=== PATIENT | male | born 1930 | race Caucasian/White ===

== ENCOUNTER 2016-10-19 11:52 | Inpatient (IN) | payer OTHER ==
[~2016-10-19] VITALS: Ht 162.6 cm; Wt 87.1 kg
[~2016-10-19 11:52] MED LIST: AGGRENOX CAPSUL1 CAP PO; ASPIRIN81 M4 PO; CLOPIDOGREL75 MG PO; COSOPT OCUMETER10 ML OS; DORZOLAMIDE HYD10 ML OPH; FLEXERIL 5MG TAB5 MG PO; HUMULIN N100 U/ML SC; LANTUS SOL100 UNIT/1 SC; LANTUS SOLOS100 U/ML SC; LEVEMIR 10100 UNITS/ SC; LISINOPRIL10 M1 PO; LOPID600 MG PO; MACROBID100 MG PO; NOVOLOG100 U/ML SC; PLAVIX 75MG TAB75 MG PO; ROZEREM8 MG PO; TRANDATE-NORMO200 MG PO; TRANDATE100 MG PO; XALATAN 0.50 GTT/1 B OPH; ZESTORETIC 12.51 TA1 PO
--- NOTE | 2016-10-19 12:12 | NUR ---
PT TO ROOM12 BIBA FROM HOME FOR AMS. 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 PT ARRIVED AAOx3, NO NEURO DEFICIT NOTED, PT DENIES ANY SYMPTOMS, SPEACH CLEAR, FALLOWING COMMANDS, ANSWERS QUESTIONS APPROPRIATE. 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 HX OF CVA,TIA,HTN,HIGH CHOL, DIABETES,AORTIC STENOSIS,KIDNEY STONES. MD JONN AT BEDSIDE FOR PT EVAL.
--- NOTE | 2016-10-19 12:19 | NUR ---
BLOOD DRAWN AND SENT TO LAB[facility]. IV EST RH G20.
[2016-10-19] MEDS ORDERED: LABETALOL HCL300 M1 PO (12:28)
[2016-10-19 12:34] LABS: ABSOLUTE BASOPHIL COUNT 0 /CUMM (0.0-0.2); ABSOLUTE EOSINOPHIL COUNT 0.3 /CUMM (0.0-0.7); ABSOLUTE GRANULOCYTE CT 4.3 /CUMM (1.4-6.5); ABSOLUTE LYMPH COUNT 2.4 /CUMM (1.2-3.4); ABSOLUTE MONOCYTE COUNT 0.5 /CUMM (0.10-0.60); BASOPHIL % 0.6 % (0.0-2.0); EOSINOPHIL % 4.3 % (0-5); GRANULOCYTE % 56.5 % (42.2-75.2); HEMATOCRIT 34.3 % (42-52); MEAN CORPUSCULAR HGB 32.7 PG (27.0-31.0); MEAN CORPUSCULAR VOLUME 95.9 FL (80.0-94.0); MEAN PLATELET VOLUME 8.1 FL (7.4-10.4); PLATELET COUNT 211 /CUMM (130-400); RBC DISTRIBUTION WIDTH 14.3 % (11.5-14.5); RED BLOOD CELL CT 3.57 /CUMM (4.70-6.10); WHITE BLOOD CELL COUNT 7.7 /CUMM (4.8-10.8)
--- NOTE | 2016-10-19 12:55 | RADIOLOGY REPORT ---
EXAMINATION: XR PORTABLE CHEST CLINICAL INFORMATION: Acute mental status changes. Presumptive diagnosis of pneumonia. COMPARISON: Chest x-ray dated 05/10/2016 and 08/17/2015. TECHNIQUE: Portable AP semierect view of the chest was obtained. FINDINGS: The cardiac mediastinal silhouette is borderline enlarged, unchanged. Slight elevation of the right hemidiaphragm is noted, unchanged. Lungs bilaterally remain clear. No focal consolidation, effusion or axis is seen. Bony structures are unremarkable. IMPRESSION: Unchanged appearance of the chest with no acute cardiopulmonary process seen.
--- NOTE | 2016-10-19 13:00 | NUR ---
URINE TRIO SENT TO LAB. PT TO CAT SCAN BY FRED.
--- NOTE | 2016-10-19 13:12 | NUR ---
PT RETURNED FROM CAT SCAN, AWAITING RESULTS, VSS, OFFERING NO COMPLAINTS. FAMILY AT BEDSIDE.
--- NOTE | 2016-10-19 14:01 | CT SCAN REPORT ---
EXAMINATION: CT HEAD WITHOUT CONTRAST CLINICAL INFORMATION: Acute mental status changes. CVA. COMPARISON: CT scan of the head dated 05/10/2016 and 02/25/2016. MRI/MRA of the head dated 03/27/2016 and 02/27/2016. TECHNIQUE: Contiguous axial imaging was performed from the skull base to vertex without intravenous administration of contrast. DLP: 529.16 mGy-cm FINDINGS: There is no evidence of acute intracranial hemorrhage or territorial infarction. No abnormal mass effect or midline shift is seen. Hogan to white matter differentiation is well preserved. No extra-axial fluid collections are identified. The ventricles and sulci are again found to be enlarged, consistent with involutional changes. There is extensive periventricular deep white matter low-attenuation seen, consistent with ischemic small vessel disease. Superimposed small lacunar infarction is present in the left frontoparietal region. Atherosclerotic calcifications of the vertebral arteries and the carotid siphons are noted. The osseous structures and soft tissues are normal. The mastoid air cells and visualized portions of the paranasal sinuses are well aerated. IMPRESSION: 1. No acute intracranial pathology. 2. Involutional changes are again seen with enlargement of the ventricles and sulci. 3. 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
--- NOTE | 2016-10-19 14:38 | ED AMS/SEIZURE/WEAK/DIZZY ---
History of Present Illness General Chief Complaint: Altered Mental Status Stated Complaint: BIBA AMS Source: patient, family, old records, EMS Exam Limitations: no limitations Vital Signs & Intake/Output Vital Signs & Intake/Output Vital Signs Date Time Temp Pulse Resp B/P Pulse O2 O2 Flow FiO2 Ox Delivery Rate 10/21 1646 97.6 61 17 116/68 91 Room Air 10/21 0829 70 130/70 10/21 0805 97.4 70 20 130/70 94 Room Air 10/21 0010 98.4 76 20 120/67 93 10/20 2105 74 142/66 ED Intake and Output 10/21 0000 10/20 1200 Intake Total 660 220 Output Total 300 100 Balance 360 120 Intake, IV 10 Intake, Oral 650 220 Number 1 Bowel Movements Output, Urine 300 100 Patient 150 lb Weight Allergies Coded Allergies: Iodinated Contrast Media - Oral and (IODINATED CONTRAST MEDIA - IV DYE) (SOB, HIVES 05/11/16) Reconcile Medications Atorvastatin Calcium 80 MG TABLET 1 TAB PO 1700 TIA Clopidogrel Bisulfate (Plavix) 75 MG TABLET 1 MG PO DAILY TIA Insulin Glargine,Hum.rec.anlog (Lantus Solostar) 100 UNIT/ML (3 ML) INSULN.PEN 40 UNIT SC QPM DIABETES (Reported) Labetalol HCl 300 MG TABLET 1 TAB PO BID BP (Reported) Lisinopril 10 MG TABLET 1 TAB PO DAILY HIGH BLOOD PRESSURE Triage Note: PT TO ROOM12 BIBA FROM HOME FOR AMS. 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 PT ARRIVED AAOx3, NO NEURO DEFICIT NOTED, PT DENIES ANY SYMPTOMS, SPEACH CLEAR, FALLOWING COMMANDS, ANSWERS QUESTIONS APPROPRIATE. 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 HX OF CVA,TIA,HTN,HIGH CHOL, DIABETES,AORTIC STENOSIS,KIDNEY STONES. MD JONN AT BEDSIDE FOR PT EVAL. Triage Nurses Notes Reviewed? yes HPI: Patient presents for evaluation of an inability to speak that began about 60 minutes prior to arrival. Patient states that he just "couldn't talk". The family also noted that he was a bit confused this morning and was unable to answer questions. One point the patient seemed indicate he had a sore throat or perhaps anterior neck pain although he currently denies this. There is been no associated fever, cold symptoms, dysuria, chest pain, dyspnea, palpitations or headache. He did feel dizzy at the onset of symptoms. He was seen by his primary care physician at the [facility] for a TIA about 2 weeks ago. Since then he has had an MRI scan, an echocardiogram and a 2 day Holter monitor. An EEG was pending. Past History Travel History Traveled to [place] past 21 day No Medical History Any Pertinent Medical History? 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 No Review of Systems Review of Systems Constitutional: Reports: no symptoms. EENTM: Reports: no symptoms. Respiratory: Reports: no symptoms. Cardiovascular: Reports: no symptoms. GI: Reports: no symptoms. Genitourinary: Reports: no symptoms. Musculoskeletal: Reports: no symptoms. Skin: Reports: no symptoms. Neurological/Psychological: Reports: see HPI. Hematologic/Endocrine: Reports: no symptoms. Immunologic/Allergic: Reports: no symptoms. All Other Systems: Reviewed and Negative Physical Exam Physical Exam General Appearance: see below Comments: Gen.: Well-nourished, well-developed, no acute respiratory distress. Head: Normocephalic, atraumatic. Eyes: Normal inspection bilaterally Ears: Normal inspection bilaterally Nose: Normal inspection Throat/mouth : Moist mucosa Neck: Supple, full range of motion, no goiter Heart: Regular rate and rhythm, no murmurs rubs or gallops Lungs: Clear to auscultation bilaterally with normal air entry Chest: Nontender Back: Normal range of motion Abdomen: Soft, nontender, nondistended, normal bowel sounds Extremities: Normal range of motion grossly, equal radial pulses, no cyanosis clubbing or edema Neurologic: Cranial nerves 2 through 12 intact, speech is clear, no apparent aphasia Skin: warm and dry Psychiatric: Calm, cooperative, no apparent delusions or hallucinations Core Measures ACS in differential dx? No CVA/TIA Diagnosis: Yes Severe Sepsis Present: No Septic Shock Present: No Bedside Dysphagia Screen Bedside Swallow Eval Done: Yes Result of Evaluation: Pass Progress Differential Diagnosis: anemia, CVA/stroke, dehydration, electrolyte imbalance, hypoglycemia, hypoxia, intracranial Hem., intracranial mass/tumor, pneumonia Plan of Care: Orders Procedure Date/time Status MRI-HEAD W/O ARNEL 10/22 07 Active MRA-NECK W/O ARNEL 10/22 06 Active MRA-HEAD W/O-W ARNEL 10/22 06 Active TROPONIN LEVEL 10/21 1715 Complete BASIC ELECTROLYTES PLUS BUN&CR 10/21 1715 Complete EKG 10/21 1715 Active CBC WITHOUT DIFFERENTIAL 10/21 1511 Complete BASIC ELECTROLYTES PLUS BUN&CR 10/21 1511 Complete PROLACTIN 10/21 1510 Complete Admit to inpatient 10/21 UNK Active Telemetry/Cleaning Maid 10/21 UNK Active EKG 10/21 UNK Active Current Medications Sig/Maikol Start time Last Medication Dose Stop Time Status Admin Ibuprofen 600 MG Q6P PRN 10/19 2044 AC (Motrin) Oxycodone/ 2 TAB Q6P PRN 10/19 204 AC Acetaminophen (Percocet) Laboratory Tests 10/21/16 1756: Anion Gap 11, Estimated GFR 57 L, BUN/Creatinine Ratio 25.0, Troponin I < 0.01 10/21/16 1530: Prolactin 13.2 10/21/16 1530: Anion Gap 12, Estimated GFR 52 L, BUN/Creatinine Ratio 23.8, CBC w Diff NO MAN DIFF REQ, RBC 3.41 L, MCV 96.4 H, MCH 32.9 H, RDW 14.2, MPV 8.2, Gran % 39.1 L, Lymphocytes % 42.8, Monocytes % 11.9 H, Eosinophils % 5.7 H, Basophils % 0.5, Absolute Granulocytes 2.1, Absolute Lymphocytes 2.3, Absolute Monocytes 0.6 , Absolute Eosinophils 0.3, Absolute Basophils 0, PUBS MCHC 34.2 Diagnostic Imaging: Discussed w/RAD: Radiology Read, CT Scan. Radiology Impression: PATIENT: GONZÁLEZ HASSAN PRESENT AGE: 86 PATIENT ACCOUNT NO: [id number] : 30 LOCATION: [facility] ORDERING PHYSICIAN: KAREN LUSNFORD MD SERVICE DATE: 10/19/16 EXAM TYPE: CAT - CT HEAD WO IV CONTRAST EXAMINATION: CT HEAD WITHOUT CONTRAST CLINICAL INFORMATION: Acute mental status changes. CVA. COMPARISON: CT scan of the head dated 2015 and 02/25/2016. MRI/MRA of the head dated 03/27/2016 and 02/27/2016. TECHNIQUE : Contiguous axial imaging was performed from the skull base to vertex without intravenous administration of contrast. DLP: 529.16 mGy-cm FINDINGS: There is no evidence of acute intracranial hemorrhage or territorial infarction. No abnormal mass effect or midline shift is seen. Hogan to white matter differentiation is well preserved. No extra-axial fluid collections are identified. The ventricles and sulci are again found to be enlarged, consistent with involutional changes. There is extensive periventricular deep white matter low-attenuation seen, consistent with ischemic small vessel disease. Superimposed small lacunar infarction is present in the left frontoparietal region. Atherosclerotic calcifications of the vertebral arteries and the carotid siphons are noted. The osseous structures and soft tissues are normal. The mastoid air cells and visualized portions of the paranasal sinuses are well aerated. IMPRESSION: 1. No acute intracranial pathology. 2. Involutional changes are again seen with enlargement of the ventricles and sulci. 3. 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 DICTATED BY: JOHN AUGUSTINE MD DATE/TIME DICTATED:10/19/161347 DIALYSIS RN:KENNY DATE/TIME TRANSCRIBED:10/19/161347 CONFIDENTIAL, DO NOT COPY WITHOUT APPROPRIATE AUTHORIZATION. <Electronically signed in Other Vendor System> SIGNED BY: JOHN AUGUSTINE MD 10/19/16 1401 CXR Impression: PATIENT: GONZÁLEZ HASSAN PRESENT AGE: 86 PATIENT ACCOUNT NO: [id number] : 30 LOCATION: [facility] ORDERING PHYSICIAN: KAREN LUNSFORD MD SERVICE DATE: 10/19/16 EXAM TYPE: RAD - XRY-PORTABLE CHEST XRAY EXAMINATION: XR PORTABLE CHEST CLINICAL INFORMATION: Acute mental status changes. Presumptive diagnosis of pneumonia. COMPARISON: Chest x-ray dated 05/10/2016 and 08/17/2015. TECHNIQUE: Portable AP semierect view of the chest was obtained. FINDINGS: The cardiac mediastinal silhouette is borderline enlarged, unchanged. Slight elevation of the right hemidiaphragm is noted, unchanged. Lungs bilaterally remain clear. No focal consolidation, effusion or axis is seen. Bony structures are unremarkable. IMPRESSION: Unchanged appearance of the chest with no acute cardiopulmonary process seen. DICTATED BY: JOHN AUGUSTINE MD DATE/TIME DICTATED:10/19/161248 DIALYSIS RN:KENNY DATE/ TIME TRANSCRIBED:10/19/161248 CONFIDENTIAL, DO NOT COPY WITHOUT APPROPRIATE AUTHORIZATION. <Electronically signed in Other Vendor System> SIGNED BY: JOHN AUGUSTINE MD 10/19/16 1250 Initial ED EKG: NSR, no ST T wave changes Rhythm Strip: normal sinus rhythm Comments: 10/19/2016 3:32:15 PM patient and family updated on test results. I'm attempting to contact his primary care physician given the recent evaluation. I would like to coordinate care with his primary care physician regarding the patient's next phase of testing and treatment. Family and the patient have commented that he has returned to normal functioning (he is complaining of blurred vision in the left eye but this has been present since his TIA 2 weeks ago). 10/19/2016 4:10:51 PM attempts to contact the patient's primary care physician or covering M.D. unsuccessful. I have just spoken with the emergency physician at the [facility] who will contact the neurology service regarding a disposition for this patient. 16:26 patient's case discussed with neurology fellow dr cruz who agrees that this patient should be hospitalized. Patient's case discussed with the emergency physician at the [facility] who feels the patient should be hospitalized at [place] despite the fact that this patient's care has been primarily via the [facility]. Departure Departure Disposition: STILL A PATIENT Condition: Stable Clinical Impression Primary Impression: TIA (transient ischemic attack) Qualifiers: Transient cerebral ischemia type: unspecified Qualified Code: G45.9 - Transient cerebral ischemic attack, unspecified Referrals: ARMANDO ROLON,ARLET [place] (PCP/Family) Departure Forms: Customer Survey General Discharge Information Prescriptions: Current Visit Scripts Clopidogrel Bisulfate (Plavix) 1 MG PO DAILY #30 TAB Atorvastatin Calcium 1 TAB PO 1700 #30 TAB Lisinopril 1 TAB PO DAILY 30 Days Ref 2
--- NOTE | 2016-10-19 14:44 | NUR ---
FOOD TRAY ORDERED FOR PT .
--- NOTE | 2016-10-19 15:42 | NUR ---
FOOD PROVIDED TO PT.
--- NOTE | 2016-10-19 17:54 | NUR ---
PT RESTING COMFORTABLY ON STRETCHER, VSS, OFFERING NO COMPLAINTS. AWAITING ADMISSION.
--- NOTE | 2016-10-19 19:45 | History & Physical ---
WARD ROLON,EDITH 10/19/161943: General Information and HPI MD Statement: I have seen and personally examined GOZNÁLEZ HASSAN and documented this H&P. The patient is a 86 year old M who presented with a patient stated chief complaint of [garbled speech]. Source of Information: patient, family, old records Exam Limitations: no limitations History of Present Illness: This is an 86 yo male with PMH of CVA, seizure, TIA, , htn, hyperlipidemia, nephrolithiasis, arthritis, who presentes with CC of 10-15 minutes of "inability to talk." Per family at bedside pt was awake, and alert but was unable to formulate any words to answer his . Pt remembers the episode and denies any confusion, dizziness, weakness, LOC, headache, or any other deficits. Of note, he had a similar episode of garbled speech and l. sided facial numbness with droop two weeks ago. [facility]. Per pt he had an MRI two weeks ago, in addition, he had an echocardiogram and a two day holter monitor earlier this week. He has an EEG appointment on 10/20/2016. He is unaware of any results of his tests. Pt has hx significant for previous TIA. He had 2 TIA in was then placed on Aggrenox without recurrence until during which he had an intracerebral hemorrhage that presented with garbled speech, he was taken off Aggrenox and he had interval resolution of symptoms until during which he presented with facial weakess and then in when he presented with l. sided weakness and dysarthria. Currently denies any CP, LOC, diarrhea, N/V, headache, dizziness, change in vision, dysarthria, weakness or confusion. He has hx of one life time seizure in 2014. Denies any tonic clonic activity since that episode. Allergies/Medications Allergies: Coded Allergies: Iodinated Contrast Media - Oral and (IODINATED CONTRAST MEDIA - IV DYE) (SOB, HIVES 05/11/16) Home Med list Aspirin (Ecotrin*) 81 MG TABLET. 2 TAB PO DAILY HEART/BLOOD (Reported) Insulin Glargine,Hum.rec.anlog (Lantus Solostar) 100 UNIT/ML (3 ML) INSULN.PEN 40 UNIT SC QPM DIABETES (Reported) Labetalol HCl 300 MG TABLET 1 TAB PO BID BP (Reported) Lisinopril 10 MG TABLET 10 MG PO DAILY HIGH BLOOD PRESSURE Pravastatin Sodium 40 MG TABLET 1 TAB PO QPM CHOLESTEROL (Reported) Compliance With Home Meds: UNKNOWN Past History Travel History Traveled to [place] past 21 day No Medical History Neurological: CVA, seizure, TIA EENT: glaucoma Cardiovascular: aortic stenosis, hypertension, hyperlipidemia, AORTIC STENOSIS Respiratory: NONE Gastrointestinal: HERNIA Hepatic: NONE Renal: KIDNEY STONES Musculoskeletal: ARTHRITIS IN KNEES Psychiatric: NONE Endocrine: diabetes Blood Disorders: NONE Cancer(s): NONE ORACLE E BUSINESS DEVELOPER/Reproductive: NONE History of MRSA: No History of VRE: No History of CDIFF: No Surgical History Surgical History: hernia repair Past Family/Social History Family History Relations & Conditions if any FATHER FH: cancer FH: heart disease Psychosocial History Who Do You Live With? spouse Services at Home: None Primary Language: Guamanian Illicit Drug Use: denies illicit drug use Living Will? yes Power of Senior Health Physics Technician/HCP? yes Name of POA/HCP: Halley Hassan Functional Ability ADLs Independent: dressing, eating, toileting, bathing. Ambulation: cane IADLs Independent: shopping, housework, finances, food prep, telephone, transportation , medication admin. Review of Systems Review of Systems Constitutional: Reports: weakness. Denies: chills, diaphoresis, fever, malaise, unexplained weight loss. EENTM: Denies: blurred vision, double vision, visual changes. Cardiovascular: Denies: chest pain, palpitations, syncope. Respiratory: Denies: cough, short of breath, sputum production, wheezing. GI: Denies: abdominal pain, bloating, constipation, diarrhea, vomiting. Genitourinary: Reports: no symptoms. Musculoskeletal: Reports: joint pain. Skin: Reports: no symptoms. Neurological/Psychological: Reports: weakness. Denies: ataxia, confusion, headache, numbness, petit mal seizures, tonic-clonic seizures, unable to move lower ext, unable to move upper ext. Hematologic/Endocrine: Reports: no symptoms. Exam & Diagnostic Data Last 24 Hrs of Vital Signs/I&O Vital Signs Date Time Temp Pulse Resp B/P Pulse O2 O2 Flow FiO2 Ox Delivery Rate 10/19 1957 96.5 71 18 194/85 98 Room Air 02/19 1749 96.2 66 18 165/70 98 Room Air 10/19 1502 58 18 146/67 94 Room Air 10/19 1310 96.0 66 16 168/75 97 Room Air 10/19 1214 Room Air 10/19 1156 96.5 65 18 184/86 99 Room Air Intake & Output 10/19 1600 10/19 0800 10/19 0000 Intake Total Output Total 50 Balance -50 Output, Urine 50 Patient 72.575 kg Weight Physical Exam General Appearance Alert, Oriented X3, Cooperative, No Acute Distress Skin No Rashes, No Breakdown, No Significant Lesion HEENT Atraumatic, PERRLA, EOMI, Mucous Membr. moist/pink, cranial nerves intact. No eivdence of facial droop or asymmetry Neck Supple, no carotid bruits auscultated Cardiovascular Regular Rate, Normal S1, Normal S2, 3/6 systolic creshendo- decreshendo at RUSB Lungs Clear to Auscultation, Normal Air Movement Abdomen Soft, obese Neurological Normal Speech, Strength at 5/5 X4 Ext, Normal Tone, Sensation Intact, Cranial Nerves 3-12 NL, Reflexes 2+, no babinski Extremities No Clubbing, Normal Pulses, No Tenderness/Swelling Last 24 Hrs of Labs/[place]: Laboratory Tests 10/19/16 1256: Urine Opiates Screen < 100.00, Methadone Screen < 40, Barbiturate Screen < 60, Ur Phencyclidine Scrn < 6.00, Amphetamines Screen 146, U Benzodiazepines Scrn < 85, Urine Cocaine Screen < 50, Urine Cannabis Screen < 5.00, Urine Color YEL, Urine Clarity CLEAR, Urine pH 6.0, Ur Specific [place] 1.025, Urine Protein 100 H, Urine Ketones NEG, Urine Nitrite NEG, Urine Bilirubin NEG, Urine Urobilinogen 0.2, Ur Leukocyte Esterase NEG, Ur Microscopic SEDIMENT EXAMINED, Urine RBC RARE , Ur Epithelial Cells FEW, Urine Hemoglobin TRACE-INTACT H, Urine Glucose NEG 10/19/16 1216: Anion Gap 14, Estimated GFR > 60, BUN/Creatinine Ratio 27.8 H, Glucose 74, Calcium 9.8, Total Bilirubin 0.7, AST 22, ALT 27, Alkaline Phosphatase 76, Troponin I < 0.01, Total Protein 7.5, Albumin 4.4, Globulin 3.1, Albumin/ Globulin Ratio 1.4, TSH 2.220, Thyroxine (T4) 8.4, Thyroxine Binding Indx 32.7, CBC w Diff NO MAN DIFF REQ, RBC 3.57 L, MCV 95.9 H, MCH 32.7 H, RDW 14.3, MPV 8.1, Gran % 56.5, Lymphocytes % 31.6, Monocytes % 7.0, Eosinophils % 4.3, Basophils % 0.6, Absolute Granulocytes 4.3, Absolute Lymphocytes 2.4, Absolute Monocytes 0.5, Absolute Eosinophils 0.3, Absolute Basophils 0, PUBS MCHC 34.0, Serum Alcohol < 10.0 Microbiology 10/19 1256 URINE ROUT: Urine Culture - RECD Assessment/Plan Assessment: This is an 86 yo male with PMH significant for HTN, TIA, Intracerebral hemorrhage on Aggrenox, history of one life time seizure, hyperlipidemia, nephrolithiasis and OA who presents with CC of dyarthria and weakness. On admission pt had no deficits noted and was back at his baseline. Given that his ABCD2 score places him at moderate risk category with almost 10% risk of stroke within 90 days pt will be admitted to telemetry unit for observation and work up. PLAN 1. Recurrent TIA: Pt has hx of recurrent TIA almost every 6-[address] shows evidence of extensive ischemic small vessel disease, involutional changes with enlargement of ventricles but no acute intracranial pathology. His last episode of TIA was today with previous one two weeks ago. He is currently only on ASA as Aggrenox was stopped 2/2 Intracranial hemorrhage in 2014. He states that [facility] and got [facility], Echo, and two day holter work up. EEG scheduled on 10/21/2016. Results of tests still pending. At this time pt has no noted deficits and per family is back to his baseline and passed swallow eval at bedside. He was given one dose of Aggrenox in ED. * Carotid dopplers * Neuro consult * [facility] * Start Plavix 75mg po daily starting tomorrow 2. Seizure hx: Pt has one lifetime hx of seizure in 2014 during episode of ICH. No seizure activity noted since then. He is pending EEG early next week. * seizure precautions 3. HTN/Hyperlipidemia: Pt had BP 194/85 during admission examination. He was given 5mg Labetalol. Pt hs seen Dr. Jay previously. * EKG * 1st troponin -ve; repeat troponin * resume home lisinopril 10mg po daily * resume labetalol 300mg po BID * resume lipitor 80mg po daily * Cardiology consult in AM 4. DM: Chronic * RISS * Diabetic diet * FS FULL CODE DIABETIC DIET CHEMICAL DVT PPX. As Ranked By This Provider Problem List: 1. History of CVA (cerebrovascular accident) 2. History of TIA (transient ischemic attack) 3. History of recurrent TIAs 4. Hypertensive urgency Core Measures/Miscellaneous Acute Coronary Syndrome ACS Diagnosis: No Cerebrovascular Accident CVA/TIA Diagnosis: Yes NIH Stroke Scale: Total 0 Congestive Heart Failure CHF Diagnosis: No Venous Thromboembolism VTE Risk Factors: Acute medical illness, Age > 40 VTE Prophylaxis Ordered Inpt: Pharm- Lovenox No Mech VTE prophylaxis d/t: No contraindications No VTE Pharm Prophylaxis d/t: No contraindications VTE Diagnosis: No VTE Type: NONE VTE Confirmed by (Test): NONE Severe Sepsis Severe Sepsis Present: No Septic Shock Septic Shock Present: No Miscellaneous Documentation Attending Case Discussed With: JOSIAH DUVALL MD Primary Care Physician: ARLET ROBERTS MD Patient sees these Specialists UNKNOWN Level of Patient Care: Telemetry Consults Needed: Consulting Specialty: Neurology LEFTY DUVALL MD 10/19/162028: Attending Review Statement Attending Statement Attending MD Statement: examined this patient, discuss w/resident/PA/REHABILITATION PROGRAM MANAGER, agreed w/resident/PA/REHABILITATION PROGRAM MANAGER, discussed with family Attending Assessment/Plan: 86 yo M with h/o T1DM, HTN, CVA, seizure (one time, no recurrence), recurrent TIA (Jul 2014, January 2015), hemorrhagic infarct (May 2015) while on aggrenox, after which he was kept off antiplatelet therapy with resultant TIA's in Jul 2015 and January 2016 at which point he was started on daily aspirin, is here with symptoms suggestive of a TIA. This afternoon, he had a 10 min episode of aphasia preceded by a short spell of dizziness. Since being in the ER, he is back to his baseline and able to converse normally. Denies headache, dyspnea, diaphoresis, nausea, slurring of speech or paresis. reports, he had a TIA (left sided facial droop with numbness, with blurring of left eye) 2 weeks back for which he was evaluated [facility] with [facility], Echo and Holter monitor, results of which are not known. Patient states, his left eye vision has been blurred for past 2 weeks , but he feels vision is clear today. Patient is scheduled for an EEG on Thursday (10/21) at the [facility]. Vitals stable except for hypertension SBP 170-180's. Exam: AAO, speech clear, passed bedside swallow test, cranial nerves intact, no facial droop, sensation intact, power 5/5 all extremities, plantars downgoing, reflexes 2+, cerebellar signs neg, did not assess gait. Chest b/l clear, Heart S1S2 regular, systolic murmur+. Labs: macrocytosis, BUN 25, trop neg, TSH normal. UA clear, Utox neg. Alcohol < 10. CXR: neg. Head CT: no acute pathology, involutional changes enlargement of ventricles and sulci, ischemic small vessel disease. MRI (February 2016) in follow up 3 weeks post discharge: inferior left parietal lobe wedge shaped focus evolving chronic hemosiderin deposition, no mass effect. EKG: SR, no acute changes. 1. Recurrent TIA, symptoms resolved ?aspirin failure. 23 Tele Obs, neurochecks, rule out ACS, obtain carotid dopplers. Please obtain echo, MRI and holter results from the [facility]. Consult cardio and neuro. Lower BP by 15% everyday, resume all home meds. PRN labetalol. Patient has been on aspirin 162 mg daily, previously had hemorrhagic infarct while on aggrenox. Will switch to plavix. Check lipid panel, A1c. Continue high dose statin. PT/speech-swallow therapy. 2. Previous seizure history. No recent seizure like activity per family. Patient is scheduled for EEG on Thursday (10/21). Please discuss with Neuro for further recs. DVT ppx Hep SC. Full code. GIOVANNI SARABIA MD 10/19/162058: Resident Review Statement Resident Statement: examined this patient, discussed with nurse intern Other Findings: This is an 86-year-old gentleman who presented to the emergency room today after being a physical for 10-15 minutes as evidenced by family. He has a past history of multiple TIAs requiring admission at [facility] in May 2015 at time of which she was found to have an intraparenchymal bleed secondary to Aggrenox, TIA-like symptoms in July 2015, and then again in January 2016. Patient states that this episode started about 2 weeks ago when he developed left mild facial droop and tingling and numbness on the left side of his face which she had evaluated by his primary care doctor at the [facility]. The tingling and facial droop did recover and last week he received an MRI, echocardiogram, Holter monitor results for all are still pending. He was said to have an EEG on Thursday at the [facility]. He states that this afternoon he was sitting on his couch when his noticed that it was difficult for him to answer her. He did not express any words for about 10-15 minutes and he symptoms past transiently and he slowly regained control of speech. He had no other symptoms during this time, per he was coherent during this episode. Patient himself remembers this episode and denies any dizziness, chest pain, syncope or postictal symptoms. In addition he has a history of hyperlipidemia, aortic stenosis, nephrolithiasis, diabetes mellitus. He states that after his symptoms resolved his called 911. They initially wanted to go to the [facility] however weren't able to do so. In addition she denies any headaches, nausea, vomiting, diarrhea, fevers, chills , chest pain, shortness of breath, facial droop, motor or sensory deficits. Physical exam- Vital signs are stable Abdominal exam is benign Lung exam is clear to auscultation bilaterally Cardiac exam reveals a 3 out of 6 right upper sternal border systolic ejection murmur Neuro exam-5 out of 5 power in all 4 extremities, sensation intact in all extremities, 1+ reflexes in all 4 extremities, negative Babinski bilaterally, cranial nerves II through XII are intact, no facial droop CAT scan of the head and chest x-ray are unremarkable for any new acute findings EKG- rate 66, VA 160, QRS 82, QTC 428, sinus rhythm, LVH, no change since previous tracing Assessment- 1. Likely TIA 2. History of previous TIAs 3. History of intraparenchymal hemorrhage on Aggrenox previously 4. Hypertension 5. Hyperlipidemia 6. Diabetes mellitus Plan- Telemetry admit She was given Aggrenox in the ER however given previous history of intraparenchymal hemorrhage, will do Plavix while in the hospital, statin Q1 neurochecks Check 1 more set of troponin now and lipids in the morning Goal blood pressures 160-170 systolic, decreased pressure by 15-20% every day He passed bedside swallow eval, and resume regular diet PT and OT consult Accu-Cheks, diabetic diet, insulin sliding scale Neurology and cardiology consult Will get carotid ultrasound Get records of recent echo, MRI, Holter from [facility] DVT prophylaxis with subcutaneous heparin Pain pathway Full code
--- NOTE | 2016-10-19 20:03 | NUR ---
BP 194/85, HOUSE STAFF MADE AWARE.
--- NOTE | 2016-10-19 20:10 | NUR ---
HOUSE STAFF AT BEDSIDE FOR PT EVAL.
--- NOTE | 2016-10-19 20:36 | NUR ---
PT HAS BED ASSIGNMENT 189-2
--- NOTE | 2016-10-19 21:17 | NUR ---
REPEAT EKG DONE. BLOOD DRAWN AND SENT TO LAB. SST
[2016-10-19 22:30] VITALS: BP 152/68
[2016-10-20 08:27] VITALS: BP 124/70
--- NOTE | 2016-10-20 09:38 | Cons- Cardiology ---
General Information and HPI Consulting Request Date of Consult: 10/20/16 Requested By: ELOINA ROLON,JOSIAH History of Present Illness: Mr. Garay is an 86 year old male with history of hypertension, dyslipidemia, diabetes mellitus and TIA. About two weeks ago this patient had a left facial paresthesia and weakness [facility] Yesterday, Alfredo again demonstrated a neurological deficit with left facial weakness and garbled speech. His speech has improved somewhat. The patient denies any chest discomfort, shortness of breath, lightheadedness or palpitations. Alfredo has had a prior TIA characterized by slurred speech with some weakness in his hand that resulted in him dropping items. Cardiac workup at the time disclosed evidence of moderate to severe aortic stenosis. He also had multiple episodes of lightheadedness and therefore his lisinoprilHCT was stopped. It should be noted that this patient had a left eye procedure for glaucoma and had some visual deficit due to his eye not opening fully. He is s/p a left parietal lobe hemorrhage and was therefore taken off Aggrenox. At that time he was found to walk with an off-balanced gait and he had slurred speech. To review this patient's past history, after his previous TIA, a carotid ultrasound was obtained which showed a 50% to 79% decrease in diameter of the distal right internal carotid artery. 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 In addition, an echocardiogram was obtained which showed an overall normal EF of 65% with mild septal hypertrophy. There was also evidence of impaired LV relaxation. In terms of cardiac valves, the patient has trace MR, trace TR, and mild pulmonic regurgitation. More importantly, there is a severely thickened and sclerotic aortic valve with decreased leaflet excursion consistent with moderate to severe aortic stenosis accompanied by mild to moderate aortic regurgitation. Allergies/Medications Allergies: Coded Allergies: Iodinated Contrast Media - Oral and (IODINATED CONTRAST MEDIA - IV DYE) (RAVEN RUIZ 05/11/16) Home Med List: Aspirin (Ecotrin*) 81 MG TABLET.DR 2 TAB PO DAILY HEART/BLOOD (Reported) Insulin Glargine,Hum.rec.anlog (Lantus Solostar) 100 UNIT/ML (3 ML) INSULN.PEN 40 UNIT SC QPM DIABETES (Reported) Labetalol HCl 300 MG TABLET 1 TAB PO BID BP (Reported) Lisinopril 10 MG TABLET 10 MG PO DAILY HIGH BLOOD PRESSURE Pravastatin Sodium 40 MG TABLET 1 TAB PO QPM CHOLESTEROL (Reported) Review of Systems Review of Systems: Left upper arm discomfort following a fall. Decreased vision in left eye related to his eyelid drooping over pupil. 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 spouse Services at Home: None Primary Language: Sudanese Smoking Status: Never Smoked Illicit Drug Use: denies illicit drug use Living Will? yes Power of Digital Media Producer/HCP? yes Name of POA/HCP: Halley Garay Functional Ability ADLs Independent: dressing, eating, toileting, bathing. Ambulation: cane IADLs Independent: shopping, housework, finances, food prep, telephone, transportation , medication admin. Exam & Diagnostic Data Vital Signs and I&O Vital Signs Date Time Temp Pulse Resp B/P Pulse O2 O2 Flow FiO2 Ox Delivery Rate 10/20 0827 98.1 69 18 124/70 94 Room Air 10/19 2230 98.7 72 18 152/68 95 Room Air 10/19 2156 96.5 71 18 174/84 10/19 2130 74 174/84 10/19 1958 96.5 71 18 194/85 98 Room Air 10/19 1749 96.2 66 18 165/70 98 Room Air 10/19 1502 58 18 146/67 94 Room Air 10/19 1310 96.0 66 16 168/75 97 Room Air 10/19 1214 Room Air 10/19 1156 96.5 65 18 184/86 99 Room Air Intake & Output 10/20 1600 10/20 0800 10/20 0000 10/19 1600 10/19 0800 10/19 0000 Intake Total 100 100 Output Total 100 50 Balance 0 100 -50 Intake, Oral 100 100 Output, Urine 100 50 Patient 150 lb 160 lb Weight Physical Exam: General: WD/WN male in NAD; alert and oriented x 3 HEENT: NC/AT, PERRL, EOMI, left eyelid drooping Neck: No JVD, bilateral carotid bruits L>R Heart: RRR with 3/6 systolic murmur at the RUSB and 2/6 systolic murmur at the LLSB Lungs: clear bilaterally Abdomen: soft, NT, +ve bowel sounds Extremities: no edema Neuro: muscle strength 5/5 throughout, mild left facial droop Diagnostic Data EKG Results sinus rhythm with LVH Assessment/Plan Assessment/Plan * This patient has been experiencing multiple and fairly frequent TIA's/CVA's. There have not been any documented dysrhythmia's that correlate with these events but it is reasonable to monitor this patient on telemetry and to obtain a repeat echocardiogram to ensure that there is no arrhythmia such as atrial fibrillation and to rule out intracardiac thrombus or poor LV function that would be the substrate for thrombus formation. * This patient has had a prior bleed on Aggrenox but I nevertheless agree with using Plavix and a statin due to his propensity toward TIA's. * Obtain a carotid ultrasound. I would have a low threshold for carotid endarterectomy if he meets criteria. * Maintain an adequate blood pressure. It appears good on his current dose of labatolol and Lisinopril. Consult Acknowledgment - Thank you for your consult request.
--- NOTE | 2016-10-20 11:00 | PN- Att Addend ---
Attending Addendum Attending Brief Note 86M PMH history of multiple TIA, aortic stenosis, HTN, HLD brought in for TIA after presenting with episode of aphasia. Yesterday, patient found he suddenly could not speak. He had no other neurological symptoms. This resolved within an hour. Had a similar episode on 09/27 that was also associated with left sided facial droop and right sided numbness. These symptoms resolved but he does report left eye blurry vision since then, though this may have been part of a glaucoma procedure he also had recently. He has a history of CVA and was placed on Aggrenox which resulted in left parietal hemorrhage, after which Aggrenox was stopped. Today he feels well and back to his baseline. No neurological symptoms and neuro exam is grossly normal. Patient has had an extensive workup at the [facility] recently following his last TIA, with MRI, carotid doppler, echocardiogram, and Holter monitor. AFVSS NAD NCAT Supple RRR CTAB SOft, NTND No c/c/e Pulses intact A&Ox3, grossly normal Current Medications Sig/Maikol Start time Last Medication Dose Route Stop Time Status Admin Acetaminophen 650 MG Q6P PRN 10/19 2044 AC 10/20 PO 1038 Atorvastatin Calcium 80 MG 1700 10/19 2145 AC 10/19 PO 2300 Clopidogrel Bisulfate 75 MG DAILY 10/20 1000 AC 10/20 PO 1027 Dipyridamole/Aspirin 1 CAP ONCE ONE 10/19 1899 DC 10/19 PO 10/19 Heparin Sodium 5,000 UNIT Q8 10/190 AC 10/20 (Porcine) SC 0600 Heparin Sodium 0 .STK-MED ONE 10/19 2128 DC (Porcine) .ROUTE Ibuprofen 600 MG Q6P PRN 10/19 2044 AC PO Insulin Aspart 0 TIDAC 10/20 0800 AC SC Insulin Detemir 15 UNITS BID 10/19 2200 AC 10/20 SC 1027 Labetalol HCl 300 MG BID 10/20 1000 AC 10/20 PO 1028 Labetalol HCl 0 .STK-MED ONE 10/19 2129 DC IV Labetalol HCl 5 MG ONCE ONE 10/19 2044 DC 10/19 IV 10/19 2045 2156 Lisinopril 10 MG DAILY 10/20 1000 AC 10/20 PO 1028 Oxycodone/ 2 TAB Q6P PRN 10/19 2044 AC Acetaminophen PO Laboratory Tests 10/20 10/19 10/19 0647 2119 1256 Chemistry Sodium (137 - 145 mmol/L) 138 Potassium (3.5 - 5.1 mmol/L) 4.0 Chloride (98 - 107 mmol/L) 101 Carbon Dioxide (22 - 30 mmol/L) 26 Anion Gap (5 - 16) 11 BUN (9 - 20 mg/dL) 21 H Creatinine (0.7 - 1.2 mg/dL) 1.0 Estimated GFR (>60 ml/min) > 60 BUN/Creatinine Ratio (7 - 25 %) 21.0 Troponin I (<0.11 ng/ml) 0.02 Triglycerides (<150 mg/dL) 145 Cholesterol (< 200 MG/DL) 142 LDL Cholesterol, Calc (65 - 129 mg/dL) 81 HDL Cholesterol (40 - 60 mg/dL) 32 L Cholesterol/HDL Ratio (0.00 - 4.88 %) 4 Toxicology Urine Opiates Screen (>2000 NG/ML) < 100.00 Methadone Screen (>300 NG/ML) < 40 Barbiturate Screen (>200 NG/ML) < 60 Ur Phencyclidine Scrn (>25 NG/ML) < 6.00 Amphetamines Screen (>1000 NG/ML) 146 U Benzodiazepines Scrn (>200 NG/ML) < 85 Urine Cocaine Screen (>300 NG/ML) < 50 Urine Cannabis Screen (>50 NG/ML) < 5.00 Urines Urine Color (YEL,AMB,STR) YEL Urine Clarity (CLEAR) CLEAR Urine pH (5.0 - 8.0) 6.0 Ur Specific [place] (1.001 - 1.035) 1.025 Urine Protein (NEG,<30 MG/DL) 100 H Urine Ketones (NEG) NEG Urine Nitrite (NEG) NEG Urine Bilirubin (NEG) NEG Urine Urobilinogen (0.1 - 1.0 EU/dl) 0.2 Ur Leukocyte Esterase (NEG) NEG Ur Microscopic SEDIMENT EXAMINED Urine RBC (0 - 5 /HPF) RARE Ur Epithelial Cells (NONE,FEW) FEW Urine Hemoglobin (NEG) TRACE-INTACT H Urine Glucose (N MG/DL) NEG 10/19 10/19 1216 1206 Chemistry Sodium (137 - 145 mmol/L) 141 Potassium (3.5 - 5.1 mmol/L) 4.6 Chloride (98 - 107 mmol/L) 103 Carbon Dioxide (22 - 30 mmol/L) 24 Anion Gap (5 - 16) 14 BUN (9 - 20 mg/dL) 25 H Creatinine (0.7 - 1.2 mg/dL) 0.9 Estimated GFR (>60 ml/min) > 60 BUN/Creatinine Ratio (7 - 25 %) 27.8 H Glucose (65 - 99 mg/dL) 74 Hemoglobin A1c Pending Calcium (8.4 - 10.2 mg/dL) 9.8 Total Bilirubin (0.2 - 1.3 mg/dL) 0.7 AST (17 - 59 U/L) 22 ALT (21 - 72 U/L) 27 Alkaline Phosphatase (< 127 U/L) 76 Troponin I (<0.11 ng/ml) < 0.01 Total Protein (6.3 - 8.2 g/dL) 7.5 Albumin (3.5 - 5.0 g/dL) 4.4 Globulin (1.9 - 4.2 gm/dL) 3.1 Albumin/Globulin Ratio (1.1 - 2.2 %) 1.4 TSH (0.270 - 4.200 uIU/mL) 2.220 Thyroxine (T4) (4.5 - 10.9 ug/dL) 8.4 Thyroxine Binding Indx (23.5 - 40.5 % UPTAKE) 32.7 Hematology CBC w Diff NO MAN DIFF REQ WBC (4.8 - 10.8 /CUMM) 7.7 RBC (4.70 - 6.10 /CUMM) 3.57 L Hgb (14.0 - 18.0 G/DL) 11.7 L Hct (42 - 52 %) 34.3 L MCV (80.0 - 94.0 FL) 95.9 H MCH (27.0 - 31.0 PG) 32.7 H RDW (11.5 - 14.5 %) 14.3 Plt Count (130 - 400 /CUMM) 211 MPV (7.4 - 10.4 FL) 8.1 Gran % (42.2 - 75.2 %) 56.5 Lymphocytes % (20.5 - 51.1 %) 31.6 Monocytes % (1.7 - 9.3 %) 7.0 Eosinophils % (0 - 5 %) 4.3 Basophils % (0.0 - 2.0 %) 0.6 Absolute Granulocytes (1.4 - 6.5 /CUMM) 4.3 Absolute Lymphocytes (1.2 - 3.4 /CUMM) 2.4 Absolute Monocytes (0.10 - 0.60 /CUMM) 0.5 Absolute Eosinophils (0.0 - 0.7 /CUMM) 0.3 Absolute Basophils (0.0 - 0.2 /CUMM) 0 PUBS MCHC (33.0 - 37.0 G/DL) 34.0 Toxicology Serum Alcohol (<10 MG/DL) < 10.0 1. TIA 2. Aphasia 3. History of CVA 4. History of intracranial bleed Plan - Continue observation on telemetry - Neurology consult - Obtain records from [facility] - Obtain EEG, as it is possible this was a partial seizure - Continue Plavix, statin - Continue home medications - Neuro checks qshift - PT/OT - DVT PPx
--- NOTE | 2016-10-20 11:17 | ULTRASOUND REPORT ---
EXAMINATION: DUPLEX BILATERAL CAROTID ULTRASOUND CLINICAL INFORMATION: TIA COMPARISON: None. TECHNIQUE: Duplex bilateral carotid US was performed using real-time ultrasound and Doppler techniques (integrating B-mode 2D vascular images, Doppler spectral analysis and color flow Doppler imaging). These techniques were utilized to interrogate the extracranial carotid and vertebral arteries bilaterally. The degree of stenosis is based off criteria similar to NASCET. FINDINGS: 1. On the right: Plaque is present at the carotid bifurcation but velocity measurements are normal and do not suggest a stenosis of greater than 50% diameter reduction in the right ICA. The right ECA demonstrates a mild stenosis with peak systolic velocity of under 200 cm/s. The vertebral artery is patent demonstrating antegrade flow. 2. On the left: Plaque is present at the carotid bifurcation but velocity measurements are normal and do not suggest a stenosis of greater than 50% diameter reduction in the left ICA. The left ECA demonstrates a moderate stenosis with peak systolic velocity of 211 cm/s. The vertebral artery is patent demonstrating antegrade flow. IMPRESSION: Plaque is present in the internal carotid arteries but velocity measurements are normal and there is no evidence to suggest a hemodynamically significant stenosis of greater than 50% diameter reduction.
--- NOTE | 2016-10-20 11:52 | PN- Housestaff ---
Subjective Follow-up For: TIA Tele-Events Since Last Visit: NSR rate 62-87 Subjective: Seen and examined patient, states that his speech speech has improved dramatically. Having some mild left upper arm pain from hitting against the wall yesterday. Multiple [facility] as well as attempt to get records however is a holiday and unable to obtain records today Review of Systems Constitutional: Denies: no symptoms, see HPI, chills, diaphoresis, fever, malaise, weakness, unexplained weight loss. Cardiovascular: Denies: chest pain, edema, orthopena, palpitations, peripheral edema, syncope. Respiratory: Denies: cough, hemoptysis, orthopnea, short of breath, sputum production, stridor, wheezing. Objective Last 24 Hrs of Vital Signs/I&O Vital Signs Date Time Temp Pulse Resp B/P Pulse O2 O2 Flow FiO2 Ox Delivery Rate 10/20 1028 89 124/70 10/20 1028 89 124/70 10/20 0827 98.1 69 18 124/70 94 Room Air 10/19 2230 98.7 72 18 152/68 95 Room Air 10/19 2156 96.5 71 18 174/84 10/19 2130 74 174/84 10/19 1958 96.5 71 18 194/85 98 Room Air 10/19 1749 96.2 66 18 165/70 98 Room Air 10/19 1502 58 18 146/67 94 Room Air 10/19 1310 96.0 66 16 168/75 97 Room Air 10/19 1214 Room Air 10/19 1156 96.5 65 18 184/86 99 Room Air Intake & Output 10/20 1600 10/20 0800 10/20 0000 Intake Total 100 100 Output Total 100 Balance 0 100 Intake, Oral 100 100 Output, Urine 100 Patient 150 lb Weight Physical Exam General Appearance: Alert, Oriented X3, Cooperative, No Acute Distress Cardiovascular: Regular Rate, Normal S1, Normal S2 Lungs: Clear to Auscultation, Normal Air Movement Abdomen: Normal Bowel Sounds, Soft, No Tenderness Neurological: Normal Gait, Normal Speech, Strength at 5/5 X4 Ext, Normal Tone, Sensation Intact, Cranial Nerves 3-12 NL, Reflexes 2+ Current Medications: Current Medications Sig/Maikol Start time Last Medication Dose Route Stop Time Status Admin Acetaminophen 650 MG Q6P PRN 10/19 2044 AC 10/20 PO 1038 Atorvastatin Calcium 80 MG 1700 10/19 2145 AC 10/19 PO 2300 Clopidogrel Bisulfate 75 MG DAILY 10/20 1000 AC 10/20 PO 1027 Dipyridamole/Aspirin 1 CAP ONCE ONE 10/19 1900 DC 10/19 PO 10/19 190 1957 Heparin Sodium 5,000 UNIT Q8 10/19 2200 AC 10/20 (Porcine) SC 0600 Heparin Sodium 0 .STK-MED ONE 10/19 2128 DC (Porcine) .ROUTE Ibuprofen 600 MG Q6P PRN 10/19 2044 AC PO Insulin Aspart 0 TIDAC 10/20 0800 AC SC Insulin Detemir 15 UNITS BID 10/19 2200 AC 10/20 SC 1027 Labetalol HCl 300 MG BID 10/20 1000 AC 10/20 PO 1028 Labetalol HCl 0 .STK-MED ONE 10/19 2129 DC IV Labetalol HCl 5 MG ONCE ONE 10/19 2044 DC 10/19 IV 10/19 Lisinopril 10 MG DAILY 10/20 1000 AC 10/20 PO 1028 Oxycodone/ 2 TAB Q6P PRN 10/19 2044 AC Acetaminophen PO Last 24 Hrs of Lab/[place] Results Last 24 Hrs of Labs/Mics: Laboratory Tests 10/20/16 0647: Anion Gap 11, Estimated GFR > 60, BUN/Creatinine Ratio 21.0, Triglycerides 145, Cholesterol 142, LDL Cholesterol, Calc 81, HDL Cholesterol 32 L, Cholesterol/ HDL Ratio 4 10/19/16 2119: Troponin I 0.02 10/19/16 1256: Urine Opiates Screen < 100.00, Methadone Screen < 40, Barbiturate Screen < 60, Ur Phencyclidine Scrn < 6.00, Amphetamines Screen 146, U Benzodiazepines Scrn < 85, Urine Cocaine Screen < 50, Urine Cannabis Screen < 5.00, Urine Color YEL, Urine Clarity CLEAR, Urine pH 6.0, Ur Specific [place] 1.025, Urine Protein 100 H, Urine Ketones NEG, Urine Nitrite NEG, Urine Bilirubin NEG, Urine Urobilinogen 0.2, Ur Leukocyte Esterase NEG, Ur Microscopic SEDIMENT EXAMINED, Urine RBC RARE , Ur Epithelial Cells FEW, Urine Hemoglobin TRACE-INTACT H, Urine Glucose NEG 10/19/16 1216: Anion Gap 14, Estimated GFR > 60, BUN/Creatinine Ratio 27.8 H, Glucose 74, Calcium 9.8, Total Bilirubin 0.7, AST 22, ALT 27, Alkaline Phosphatase 76, Troponin I < 0.01, Total Protein 7.5, Albumin 4.4, Globulin 3.1, Albumin/ Globulin Ratio 1.4, TSH 2.220, Thyroxine (T4) 8.4, Thyroxine Binding Indx 32.7, CBC w Diff NO MAN DIFF REQ, RBC 3.57 L, MCV 95.9 H, MCH 32.7 H, RDW 14.3, MPV 8.1, Gran % 56.5, Lymphocytes % 31.6, Monocytes % 7.0, Eosinophils % 4.3, Basophils % 0.6, Absolute Granulocytes 4.3, Absolute Lymphocytes 2.4, Absolute Monocytes 0.5, Absolute Eosinophils 0.3, Absolute Basophils 0, PUBS MCHC 34.0, Serum Alcohol < 10.0 10/19/16 1206: Hemoglobin A1c Pending Microbiology 10/19 125 URINE ROUT: Urine Culture - RES Assessment/Plan Assessment: 86-year-old gentleman with his past medical history significant for type 1 diabetes, hypertension, CVA, seizures, recurrent TIA (Jul 2014, January 2015), hemorrhagic infarct (May 2015) while on aggrenox, after which he was kept off antiplatelet therapy with resultant TIA's in Jul 2015 and January 2016 currently on aspirin, here for evaluation of TIA. Problem list 1. TIA 2. Hypertension 3. History of CVA 4. History of intracranial bleed 5. Type 1 diabetes Plan He had extensive workup [MRI/echo/Holter monitor] done 2 weeks ago at the [facility], unable to get in touch with medical records at [facility] to obtain medical records. Will obtain EEG to rule out questionable seizure activity Neurology is aware of the patient, continue Plavix and high intensity statin Cardiology consulted appreciate recommendations Continue home meds of labetalol and lisinopril Continue to monitor fingersticks, continue basal and insulin sliding scale Lipid panel and thyroid function within normal limits On diabetic diet DVT prophylaxis subcutaneous heparin PT to evaluate and treat Patient is full code Problem List: 1. Transient ischemic attack 2. CVA (cerebral vascular accident) 3. Diabetes Pain Ratin Pain Location: Not applicable Pain Goal: Pain 4 or less Pain Plan: Current regimen Tomorrow's Labs & Rationales: None required Consulting Request: Consulting Specialty: Neurology
[2016-10-20 16:33] VITALS: BP 118/52
--- NOTE | 2016-10-20 19:35 | Cons- Neurology ---
General Information and HPI Consulting Request Date of Consult: 10/20/16 Requested By: ELOINA ROLON,JOSIAH History of Present Illness: 86-year-old male who presents after having episode of inability to speak for about 10 minutes. He recalls yesterday that he was carrying a package when he fell and dropped the package. He stated that he injured his left arm during the fall but did not lose consciousness. Shortly afterwards he noted a numb-like sense involving the left side of the face; this was then followed by inability to speak. This lasted about 10 or 15 minutes and then resolved. There was no limb weakness or paresthesias in the limbs. There was no loss of consciousness. He had a somewhat similar episode in late last year. He was placed on Aggrenox suffered a hemorrhage and Aggrenox have been discontinued. There was no headache or vertigo during this contact episode Allergies/Medications Allergies: Coded Allergies: Iodinated Contrast Media - Oral and (IODINATED CONTRAST MEDIA - IV DYE) (SOB, HIVES 05/11/16) Home Med List: Aspirin (Ecotrin*) 81 MG TABLET.DR 2 TAB PO DAILY HEART/BLOOD (Reported) Insulin Glargine,Hum.rec.anlog (Lantus Solostar) 100 UNIT/ML (3 ML) INSULN.PEN 40 UNIT SC QPM DIABETES (Reported) Labetalol HCl 300 MG TABLET 1 TAB PO BID BP (Reported) Lisinopril 10 MG TABLET 10 MG PO DAILY HIGH BLOOD PRESSURE Pravastatin Sodium 40 MG TABLET 1 TAB PO QPM CHOLESTEROL (Reported) Current Medications: Current Medications Sig/Maikol Start time Last Medication Dose Route Stop Time Status Admin Acetaminophen 650 MG .STK-MED ONE 10/20 1035 DC PO 10/20 1036 Acetaminophen 650 MG Q6P PRN 10/19 2045 AC 10/20 PO 1038 Atorvastatin Calcium 80 MG 1700 10/19 2145 AC 10/20 PO 1630 Clopidogrel Bisulfate 75 MG DAILY 10/20 1000 AC 10/20 PO 1027 Heparin Sodium 5,000 UNIT Q8 10/19 2200 AC 10/20 (Porcine) SC 1415 Heparin Sodium 0 .STK-MED ONE 10/19 2128 DC (Porcine) .ROUTE Ibuprofen 600 MG Q6P PRN 10/19 2045 AC PO Insulin Aspart 0 TIDAC 10/20 0800 AC 10/20 SC 1630 Insulin Detemir 15 UNITS BID 10/19 220 AC 10/20 SC 1027 Labetalol HCl 300 MG BID 10/20 1000 AC 10/20 PO 1028 Labetalol HCl 0 .STK-MED ONE 10/19 2129 DC IV Labetalol HCl 5 MG ONCE ONE 10/19 2044 DC 10/19 IV 10/19 2045 2156 Lisinopril 10 MG DAILY 10/20 1000 AC 10/20 PO 1028 Oxycodone/ 2 TAB Q6P PRN 10/19 2044 AC Acetaminophen PO Review of Systems Review of Systems: Denies headache, vertigo, swallowing difficulty, chest pain, breathing problems, loss of consciousness, swelling, fever, he has poor vision in left eye, he walks with a walker Other systems reviewed and negative Past History Travel History Traveled to [place] past 21 day No Medical History Blood Transfusion Hx: No Neurological: CVA, seizure, TIA EENT: glaucoma Cardiovascular: aortic stenosis, hypertension, hyperlipidemia, AORTIC STENOSIS Respiratory: NONE Gastrointestinal: HERNIA Hepatic: NONE Renal: KIDNEY STONES Musculoskeletal: ARTHRITIS IN KNEES Psychiatric: NONE Endocrine: diabetes Blood Disorders: NONE Cancer(s): NONE 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 spouse Services at Home: None Primary Language: Zambian Smoking Status: Never Smoked Illicit Drug Use: denies illicit drug use Living Will? yes Power of Telecom Manager/HCP? yes Name of POA/HCP: Halley Garay Functional Ability ADLs Independent: dressing, eating, toileting, bathing. Ambulation: cane IADLs Independent: shopping, housework, finances, food prep, telephone, transportation , medication admin. Exam & Diagnostic Data Vital Signs and I&O Vital Signs Date Time Temp Pulse Resp B/P Pulse O2 O2 Flow FiO2 Ox Delivery Rate 10/20 1633 98.2 68 18 118/52 93 Room Air 10/20 1122 Room Air Room Air 10/20 1028 89 124/70 10/20 1028 89 124/70 10/20 0827 98.1 69 18 124/70 94 Room Air 10/19 2230 98.7 72 18 152/68 95 Room Air 10/19 2155 96.5 71 18 174/84 10/190 74 174/84 10/19 1957 96.5 71 18 194/85 98 Room Air Intake & Output 10/20 1600 10/20 0800 10/20 0000 Intake Total 420 100 100 Output Total 100 Balance 420 0 100 Intake, Oral 420 100 100 Output, Urine 100 Patient 150 lb Weight Physical Exam: Alert and oriented Language functions fund of knowledge attention span recall reasonably intact Heart sounds normal no carotid bruits distal pulses intact Extraocular movements full ,poor vision in left eye, visual ford intact, no facial weakness or facial sensory loss, palate tongue and shoulders intact, hearing grossly intact Normal tone and strength in upper and lower extremities. Mild limitation of movement left upper extremity due to shoulder pain No sensory loss to light touch bilaterally Coordinative functions upper extremities intact Attempted gait not made Last 48 Hours of Lab Results: Laboratory Tests 10/20 10/19 10/19 0647 2119 1256 Chemistry Sodium (137 - 145 mmol/L) 138 Potassium (3.5 - 5.1 mmol/L) 4.0 Chloride (98 - 107 mmol/L) 101 Carbon Dioxide (22 - 30 mmol/L) 26 Anion Gap (5 - 16) 11 BUN (9 - 20 mg/dL) 21 H Creatinine (0.7 - 1.2 mg/dL) 1.0 Estimated GFR (>60 ml/min) > 60 BUN/Creatinine Ratio (7 - 25 %) 21.0 Troponin I (<0.11 ng/ml) 0.02 Triglycerides (<150 mg/dL) 145 Cholesterol (< 200 MG/DL) 142 LDL Cholesterol, Calc (65 - 129 mg/dL) 81 HDL Cholesterol (40 - 60 mg/dL) 32 L Cholesterol/HDL Ratio (0.00 - 4.88 %) 4 Toxicology Urine Opiates Screen (>2000 NG/ML) < 100.00 Methadone Screen (>300 NG/ML) < 40 Barbiturate Screen (>200 NG/ML) < 60 Ur Phencyclidine Scrn (>25 NG/ML) < 6.00 Amphetamines Screen (>1000 NG/ML) 146 U Benzodiazepines Scrn (>200 NG/ML) < 85 Urine Cocaine Screen (>300 NG/ML) < 50 Urine Cannabis Screen (>50 NG/ML) < 5.00 Urines Urine Color (YEL,AMB,STR) YEL Urine Clarity (CLEAR) CLEAR Urine pH (5.0 - 8.0) 6.0 Ur Specific [place] (1.001 - 1.035) 1.025 Urine Protein (NEG,<30 MG/DL) 100 H Urine Ketones (NEG) NEG Urine Nitrite (NEG) NEG Urine Bilirubin (NEG) NEG Urine Urobilinogen (0.1 - 1.0 EU/dl) 0.2 Ur Leukocyte Esterase (NEG) NEG Ur Microscopic SEDIMENT EXAMINED Urine RBC (0 - 5 /HPF) RARE Ur Epithelial Cells (NONE,FEW) FEW Urine Hemoglobin (NEG) TRACE-INTACT H Urine Glucose (N MG/DL) NEG 10/19 10/19 1216 1206 Chemistry Sodium (137 - 145 mmol/L) 141 Potassium (3.5 - 5.1 mmol/L) 4.6 Chloride (98 - 107 mmol/L) 103 Carbon Dioxide (22 - 30 mmol/L) 24 Anion Gap (5 - 16) 14 BUN (9 - 20 mg/dL) 25 H Creatinine (0.7 - 1.2 mg/dL) 0.9 Estimated GFR (>60 ml/min) > 60 BUN/Creatinine Ratio (7 - 25 %) 27.8 H Glucose (65 - 99 mg/dL) 74 Hemoglobin A1c Pending Calcium (8.4 - 10.2 mg/dL) 9.8 Total Bilirubin (0.2 - 1.3 mg/dL) 0.7 AST (17 - 59 U/L) 22 ALT (21 - 72 U/L) 27 Alkaline Phosphatase (< 127 U/L) 76 Troponin I (<0.11 ng/ml) < 0.01 Total Protein (6.3 - 8.2 g/dL) 7.5 Albumin (3.5 - 5.0 g/dL) 4.4 Globulin (1.9 - 4.2 gm/dL) 3.1 Albumin/Globulin Ratio (1.1 - 2.2 %) 1.4 TSH (0.270 - 4.200 uIU/mL) 2.220 Thyroxine (T4) (4.5 - 10.9 ug/dL) 8.4 Thyroxine Binding Indx (23.5 - 40.5 % UPTAKE) 32.7 Hematology CBC w Diff NO MAN DIFF REQ WBC (4.8 - 10.8 /CUMM) 7.7 RBC (4.70 - 6.10 /CUMM) 3.57 L Hgb (14.0 - 18.0 G/DL) 11.7 L Hct (42 - 52 %) 34.3 L MCV (80.0 - 94.0 FL) 95.9 H MCH (27.0 - 31.0 PG) 32.7 H RDW (11.5 - 14.5 %) 14.3 Plt Count (130 - 400 /CUMM) 211 MPV (7.4 - 10.4 FL) 8.1 Gran % (42.2 - 75.2 %) 56.5 Lymphocytes % (20.5 - 51.1 %) 31.6 Monocytes % (1.7 - 9.3 %) 7.0 Eosinophils % (0 - 5 %) 4.3 Basophils % (0.0 - 2.0 %) 0.6 Absolute Granulocytes (1.4 - 6.5 /CUMM) 4.3 Absolute Lymphocytes (1.2 - 3.4 /CUMM) 2.4 Absolute Monocytes (0.10 - 0.60 /CUMM) 0.5 Absolute Eosinophils (0.0 - 0.7 /CUMM) 0.3 Absolute Basophils (0.0 - 0.2 /CUMM) 0 PUBS MCHC (33.0 - 37.0 G/DL) 34.0 Toxicology Serum Alcohol (<10 MG/DL) < 10.0 Imaging/Other Studies: carotid u/s IMPRESSION: Plaque is present in the internal carotid arteries but velocity measurements are normal and there is no evidence to suggest a hemodynamically significant stenosis of greater than 50% diameter reduction. CAT HEAD IMPRESSION: 1. No acute intracranial pathology. 2. Involutional changes are again seen with enlargement of the ventricles and sulci. 3. 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 Assessment/Plan Assessment: Transient neurologic episodes, TIA versus focal seizure Recommendations: 1 antiplatelet agent such as clopidogril Atorvastatin Electroencephalogram Consult Acknowledgment - Thank you for your consult request.
--- NOTE | 2016-10-20 20:08 | ELECTROENCEPHALOGRAM REPORT ---
Electroencephalogram Report Electroencephalogram Results Date of service: 10/20/16 Attending MD: JOSIAH DUVALL MD Manager Management: Rufino Poole EEG Number: [id number] Test Utilizes: 21 electrode system Pertinent Hx/Physical/Neuro Findings/Clin Diagnosis: transient speech difficulty Inpatient Medications: Current Medications Sig/Maikol Start time Last Medication Dose Route Stop Time Status Admin Acetaminophen 650 MG .STK-MED ONE 10/20 1035 DC PO 10/20 1036 Acetaminophen 650 MG Q6P PRN 10/19 2045 AC 10/20 PO 1038 Atorvastatin Calcium 80 MG 1700 10/19 2145 AC 10/20 PO 1630 Clopidogrel Bisulfate 75 MG DAILY 10/20 1000 AC 10/20 PO 1027 Heparin Sodium 5,000 UNIT Q8 10/19 2200 AC 10/20 (Porcine) SC 1415 Heparin Sodium 0 .STK-MED ONE 10/19 2128 DC (Porcine) .ROUTE Ibuprofen 600 MG Q6P PRN 10/19 2045 AC PO Insulin Aspart 0 TIDAC 10/20 0800 AC 10/20 SC 1630 Insulin Detemir 15 UNITS BID 10/19 2200 AC 10/20 SC 1027 Labetalol HCl 300 MG BID 10/20 1000 AC 10/20 PO 1028 Labetalol HCl 0 .STK-MED ONE 10/19 2130 DC IV Labetalol HCl 5 MG ONCE ONE 10/19 204 DC 10/19 IV 10/19 2045 2156 Lisinopril 10 MG DAILY 10/20 1000 AC 10/20 PO 1028 Oxycodone/ 2 TAB Q6P PRN 10/19 204 AC Acetaminophen PO Interpretation: EEG in wake/drowsy state In wakefulness, bacj\kground is 8 cps activity During drowsyness, background slows to 5-6 cps activity. Photic stim: no abnormalities. No focal or epileptiform activity Impression: normal EEG in wake and drowsy states
[2016-10-21 00:10] VITALS: BP 120/67
[2016-10-21] MEDS ORDERED: PLAVIX75 M1 PO (07:32)
[2016-10-21] MEDS ORDERED: LISINOPRIL10 M1 PO (07:32)
[2016-10-21] MEDS ORDERED: ATORVASTATIN CA80 M1 PO (07:32)
--- NOTE | 2016-10-21 07:35 | Patient Discharge Instructions ---
Discharge Instructions General Discharge Information You were seen/treated for: TIA Special Instructions: Please follow up with your primary care physician within one week of discharge Please follow up with your neurologist within two weeks of discharge Please follow up with your quality process engineer within two weeks of discharge Acute Coronary Syndrome Inclusion Criteria At DC or during hospital stay patient has or had the following: ACS DIAGNOSIS No Discharge Core Measures Meds if any: Prescribed or Continued at Discharge Meds if any: NOT Prescribed or Continued at Discharge Congestive Heart Failure Inclusion Criteria At DC or during hospital stay patient has or had the following: CHF DIAGNOSIS No Discharge Core Measures Meds if any: Prescribed or Continued at Discharge Meds if any: NOT Prescribed or Continued at Discharge Cerebrovascular accident Inclusion Criteria At DC or during hospital stay patient has or had the following: CVA/TIA Diagnosis Yes Discharge Core Measures Meds if any: Prescribed or Continued at Discharge Antithrombotic Yes Statin (required if LDL =>70) Yes Meds if any: NOT Prescribed or Continued at Discharge Venous thromboembolism Inclusion Criteria VTE Diagnosis No VTE Type NONE VTE Confirmed by (Test) NONE Discharge Core Measures - Per Current guidelines, there needs to be overlap - treatment for the first 5 days of Warfarin therapy. - If discharged on Warfarin prior to 5 days of - overlap therapy, the patient will need to be - assessed for post discharge needs including - *Post discharge parental anticoagulation - *Warfarin and/or parental anticoagulation education - *Follow up date to check INR post discharge At least 5 days overlap therapy as Inpatient No Meds if any: Prescribed or Continued at Discharge Note: Overlap Therapy is Warfarin and Anticoagulant Meds if any: NOT Prescribed or Continued at Discharge
[2016-10-21 08:05] VITALS: BP 130/70
--- NOTE | 2016-10-21 08:39 | PN- Housestaff ---
MARLEEN HENDRIX 10/21/16 0834: Subjective Follow-up For: TIA Tele-Events Since Last Visit: Sinus rhythm, heart rate 63-73 Subjective: Seen and examined patient, is at bedside. Offers no complaints feels well Review of Systems Constitutional: Denies: chills, diaphoresis, fever, malaise, weakness, unexplained weight loss. Cardiovascular: Denies: chest pain, edema, orthopena, palpitations, peripheral edema, syncope. Respiratory: Denies: cough, hemoptysis, orthopnea, short of breath, sputum production, stridor, wheezing. Neurological/Psychological: Denies: anxiety, ataxia, cognitive dysfunction, confusion, depressed, dementia, emotional problems, headache, numbness, paresthesia, pre-existing deficit, petit mal seizures, tingling, tremors, tonic-clonic seizures, unable to move lower ext , unable to move upper ext, weakness, other. Objective Last 24 Hrs of Vital Signs/I&O Vital Signs Date Time Temp Pulse Resp B/P Pulse O2 O2 Flow FiO2 Ox Delivery Rate 10/21 0829 70 130/70 10/21 0805 97.4 70 20 130/70 94 Room Air 10/21 0010 98.4 76 20 120/67 93 10/20 2105 74 142/66 10/20 1633 98.2 68 18 118/52 93 Room Air 10/20 1122 Room Air Room Air 10/20 1028 89 124/70 10/20 1028 89 124/70 Intake & Output 10/21 1600 10/21 0800 10/21 0000 Intake Total 360 Output Total 450 300 Balance -450 60 Intake, IV 10 Intake, Oral 350 Number 1 Bowel Movements Output, Urine 450 300 Patient 152 lb Weight Physical Exam General Appearance: Alert, Oriented X3, Cooperative, No Acute Distress Cardiovascular: Regular Rate, Normal S1, Normal S2 Lungs: Clear to Auscultation, Normal Air Movement Abdomen: Normal Bowel Sounds, Soft, No Tenderness Neurological: Normal Gait, Normal Speech, Strength at 5/5 X4 Ext, Normal Tone, Sensation Intact, Cranial Nerves 3-12 NL Extremities: No Edema Assessment/Plan Assessment: 86-year-old gentleman with his past medical history significant for type 1 diabetes, hypertension, CVA, seizures, recurrent TIA (Jul 2014, January 2015), hemorrhagic infarct (May 2015) while on aggrenox, after which he was kept off antiplatelet therapy with resultant TIA's in Jul 2015 and January 2016 currently on aspirin, here for evaluation of TIA. Problem list 1. TIA 2. Hypertension 3. History of CVA 4. History of intracranial bleed 5. Type 1 diabetes Plan He had extensive workup [MRI/echo/Holter monitor] done 2 weeks ago at the [facility], reached out today to obtain medical records again. EEG within normal limits Neurology on board, continue Plavix and high intensity statin, patient gets most of his care at the [facility] and he is also due to follow up with a neurologist there, spoke to patient and family to continue to follow-up at the [facility]. Cardiology consulted appreciate recommendations, echo pending Continue home meds of labetalol and lisinopril Continue to monitor fingersticks, continue basal and insulin sliding scale Lipid panel and thyroid function within normal limits On diabetic diet DVT prophylaxis subcutaneous heparin PT to evaluate and treat Patient is full code Problem List: 1. History of TIA (transient ischemic attack) 2. Hypertension 3. Diabetes Pain Ratin Pain Location: Not applicable Pain Goal: Pain 4 or less Pain Plan: current regimen Tomorrow's Labs & Rationales: None-required Consulting Request: Consulting Specialty: Neurology ROB LEE MD 10/21/162124: Attending MD Review Statement Attending Statement Attending MD Statement: examined this patient, discuss w/resident/PA/WARP SCOURING VAT TENDER, agreed w/resident/PA/WARP SCOURING VAT TENDER, reviewed EMR data (avail) Attending Assessment/Plan: 86M PMH history of multiple TIA, aortic stenosis, HTN, HLD brought in for TIA after presenting with episode of aphasia. Yesterday, patient found he suddenly could not speak. He had no other neurological symptoms. This resolved within an hour. Had a similar episode on 09/27 that was also associated with left sided facial droop and right sided numbness. These symptoms resolved but he does report left eye blurry vision since then, though this may have been part of a glaucoma procedure he also had recently. He has a history of CVA and was placed on Aggrenox which resulted in left parietal hemorrhage, after which Aggrenox was stopped. Patient was back to his baseline and ready to be discharged. In the afternoon he developed sudden onset aphasia. This last <5 minutes and he returned to baseline. 2 hours later, it occured again, with the same presentation and again lasted <5 minutes. He is currently at baseline. Repeat CT head was negative. AFVSS NAD NCAT Supple RRR CTAB SOft, NTND No c/c/e Pulses intact A&Ox3, grossly normal 1. TIA 2. Aphasia 3. History of CVA 4. History of intracranial bleed Plan - Continue on telemetry - Neurology consult - [facility] - Add ASA to Plavix - MRI/MRA of head and neck tomorrow (was not available today) - Continue Plavix, statin - Continue home medications - Neuro checks qshift - PT/OT - DVT PPx
--- NOTE | 2016-10-21 11:39 | PN- Cardiology ---
Subjective Subjective: * Alfredo feels improved. * sinus rhythm * Carotid dopplers show a less than 50% stenosis bilaterally. Prior carotid dopplers showed a 50-79% stenosis in distal right internal carotid artery. Objective Vital Signs and I&Os Vital Signs Date Time Temp Pulse Resp B/P Pulse O2 O2 Flow FiO2 Ox Delivery Rate 10/21 0829 70 130/70 10/21 0805 97.4 70 20 130/70 94 Room Air 10/21 0010 98.4 76 20 120/67 93 10/20 2105 74 142/66 10/20 1633 98.2 68 18 118/52 93 Room Air Intake & Output 10/21 1600 10/21 0800 10/21 0000 10/20 1600 10/20 0800 10/20 0000 Intake Total 360 420 100 100 Output Total 450 300 100 Balance -450 60 420 0 100 Intake, IV 10 Intake, Oral 350 420 100 100 Number 1 Bowel Movements Output, Urine 450 300 100 Patient 152 lb 150 lb Weight Physical Exam: General: WD/WN male in NAD; alert and oriented x 3 HEENT: NC/AT, PERRL, EOMI, left eyelid drooping Neck: No JVD, bilateral carotid bruits L>R Heart: RRR with 3/6 systolic murmur at the RUSB and 2/6 systolic murmur at the LLSB Lungs: clear bilaterally Abdomen: soft, NT, +ve bowel sounds Extremities: no edema Neuro: muscle strength 5/5 throughout, mild left facial droop Assessment/Plan Assessment/Plan * This patient has had two carotid ultrasound studies with discordant results. In consideration of his multiple and frequent TIA's this patient should have a more definitive study. I recommend an MRA of the carotids. It is possible that this workup had been done and we are trying to acquire records from the [facility] to determine this. Otherwise he should obtain this study here. Continue Plavix. Continue telemetry? No
--- NOTE | 2016-10-21 14:56 | ECHOCARDIOGRAM REPORT ---
GONZÁLEZ HASSAN Age: 86 : 1930 Gender: M Exam Date: 10/20/2016 19:36 Exam Location: 1 [address] Ht (in): 66 Wt (lb): 150 BSA: 1.79 BP: 118 / 52 Ordering Physician: MARLEEN HENDRIX MD Referring Physician: Kaushik Jay MD, PhD Technologist: Michelle Alicia [facility] Room Number: [id number] Indications: TIA Rhythm: Sinus Technical Quality: good FINDINGS Left Ventricle Normal left ventricular size with mild left ventricular hypertrophy. Normal systolic function with no obvious regional wall motion abnormalities. Diastolic filling pattern is consistent with impaired LV relaxation. The ejection fraction is visually estimated at 80%. Right Ventricle The right ventricle is normal in size and function. Right Atrium The right atrium is normal in size. Left Atrium The left atrium is mildly enlarged. The interatrial septum is intact. Mitral Valve The mitral valve demonstrates mild posterior annular calcification with normal function. There is mild mitral regurgitation. Aortic Valve Severely thickened and sclerotic aortic valve with decreased leaflet excursion. Severe aortic stenosis is noted. There is mild aortic regurgitation. Tricuspid Valve The tricuspid valve is normal in structure and function. There is mild tricuspid regurgitation. Pulmonary artery systolic pressure is normal. Pulmonic Valve Structurally normal pulmonic valve. There is trace pulmonic regurgitation. Pericardium Normal pericardium without effusion. No pleural effusion. Great Vessels Normal aortic root dimension. The aortic arch and great vessels are well seen and are normal. CONCLUSIONS 1. Normal EF of 80% with impaired LV relaxation. 2. Mild left ventricular hypertrophy. 3. Mild left atrial enlargment. 4. Mild mitral regurgitation. 5. Mild tricuspid regrugitation. 6. Severe aortic stenosis. Mild aortic regurgitation. 7. Trace pulmonic regurgitation. Kaushik Jay M.D. (Electronically Signed) Final Date: 21 October 2016 14:56 MEASUREMENTS (Male / Female) Normal Values 2D ECHO LV Diastolic Diameter PLAX 4.2 cm 4.2 - 5.9 / 3.9 - 5.3 cm LV Systolic Diameter PLAX 1.9 cm 2.1 - 4.0 cm LV Fractional Shortening PLAX 54.8 % 25 - 46 % LV Ejection Fraction 2D Teich 85.8 % IVS Diastolic Thickness 1.2 cm LVPW Diastolic Thickness 1.2 cm LV Relative Wall Thickness 0.6 RV Internal Dim ED PLAX 2.5 cm 1.9 - 3.8 cm LVOT Diameter 2.0 cm Aortic Root Diameter 3.6 cm LA Systolic Diameter LX 4.2 cm 3.0 - 4.0 / 2.7 - 3.8 cm LA Volume 43.0 cm 18 - 58 / 22 - 52 cm Ascending Aorta Diameter 3.7 cm DOPPLER AV Peak Velocity 399.0 cm/s AV Peak Gradient 63.7 mmHg AV Mean Velocity 293.0 cm/s AV Mean Gradient 39.0 mmHg AV Velocity Time Integral 104.0 cm AI Deceleration Sheridan 158.0 cm/s AI Peak Velocity 309.0 cm/s AI Pressure Half Time 572.0 ms AI Peak Gradient 38.2 mmHg LVOT Peak Velocity 113.0 cm/s LVOT Peak Gradient 5.1 mmHg LVOT Mean Velocity 78.0 cm/s LVOT Mean Gradient 3.0 mmHg LVOT Velocity Time Integral 27.5 cm LVOT Stroke Volume 86.4 cm AV Area Cont Eq vti 0.8 cm AV Area Cont Eq pk 0.9 cm MV Peak Velocity 149.0 cm/s MV Peak Gradient 8.9 mmHg MV Mean Velocity 67.8 cm/s MV Mean Gradient 2.0 mmHg Mitral E Point Velocity 84.9 cm/s Mitral A Point Velocity 119.0 cm/s Mitral E to A Ratio 0.7 MV PHT Velocity 89.0 cm/s MV Deceleration Sheridan 252.0 cm/s MV Pressure Half Time 106.0 ms MV Area PHT 2.1 cm MV Deceleration Time 375.0 ms TR Peak Velocity 267.0 cm/s TR Peak Gradient 28.5 mmHg Right Atrial Pressure 5.0 mmHg Pulmonary Artery Systolic Pressu 33.5 mmHg Right Ventricular Systolic Press 33.5 mmHg PV Peak Velocity 145.0 cm/s PV Peak Gradient 8.4 mmHg PV Mean Velocity 94.6 cm/s PV Mean Gradient 4.0 mmHg PV Velocity Time Integral 31.9 cm LV E' Lateral Velocity 5.1 cm/s Mitral E to LV E' Lateral Ratio 16.5 LV E' Septal Velocity 3.5 cm/s Mitral E to LV E' Septal Ratio 24.2
--- NOTE | 2016-10-21 15:37 | CT SCAN REPORT ---
EXAMINATION: CT HEAD WITHOUT CONTRAST CLINICAL INFORMATION: CVA. COMPARISON: CT head 10/19/2016 TECHNIQUE: Contiguous axial imaging was performed from the skull base to vertex without intravenous administration of contrast. DLP: 529.16 mGy-cm FINDINGS: There is no evidence of acute intracranial hemorrhage or territorial infarction. No abnormal mass effect or midline shift is seen. Hogan to white matter differentiation is well preserved. No extra-axial fluid collections are identified. Ventricles and sulci are prominent consistent with underlying volume loss. Extensive periventricular deep white matter low attenuation is noted consistent with chronic microvascular ischemic changes. Old, small lacunar infarct again noted in the left frontoparietal region. The osseous structures and soft tissues are normal. A post carotid calcifications the vertebral arteries and carotid siphons again noted. The mastoid air cells and visualized portions of the paranasal sinuses are well aerated. IMPRESSION: No acute intracranial abnormality. No intracranial hemorrhage or mass effect. Volume loss with extensive chronic microvascular ischemic changes.
--- NOTE | 2016-10-21 15:40 | Event Note ---
Event Note Event Note: Around 3 pm, patient started to have loss of speech again. was at the bedside and she noticed that patient is having similar sx as he had on presentation. Stroke alert was called. NIH stroke scale of 1 scoring in speech. No focal neurological deficit. Call was placed to Dr. Adkins, he recommended to continue medical management with plavix, high dose statin, lisinopril and CTA head and neck to evaluate for carotid the hemodynamic flow of b/l carotid arteries. CTA could not be done as patient is allergic to contrast. patient will have MRA head neck done tomorrow. 3.40 pm Patient is back on the floor after a CT head, which is negative for any acute bleed or hemorrage. Patient's speech is back. Neurology is updated regarding current patient status and negative CT scan results, they recommend dual antiplatelet therapy with aspirin and plavix. Will follow up MRA head/neck results. Decision to remain on Telemetry floor.
[2016-10-21 16:18] LABS: ABSOLUTE BASOPHIL COUNT 0 /CUMM (0.0-0.2); ABSOLUTE EOSINOPHIL COUNT 0.3 /CUMM (0.0-0.7); ABSOLUTE GRANULOCYTE CT 2.1 /CUMM (1.4-6.5); ABSOLUTE LYMPH COUNT 2.3 /CUMM (1.2-3.4); ABSOLUTE MONOCYTE COUNT 0.6 /CUMM (0.10-0.60); BASOPHIL % 0.5 % (0.0-2.0); EOSINOPHIL % 5.7 % (0-5); GRANULOCYTE % 39.1 % (42.2-75.2); HEMATOCRIT 32.9 % (42-52); MEAN CORPUSCULAR HGB 32.9 PG (27.0-31.0); MEAN CORPUSCULAR HGB CONC 34.2 G/DL (33.0-37.0); MEAN CORPUSCULAR VOLUME 96.4 FL (80.0-94.0); MEAN PLATELET VOLUME 8.2 FL (7.4-10.4); PLATELET COUNT 195 /CUMM (130-400); RBC DISTRIBUTION WIDTH 14.2 % (11.5-14.5); RED BLOOD CELL CT 3.41 /CUMM (4.70-6.10); WHITE BLOOD CELL COUNT 5.5 /CUMM (4.8-10.8)
[2016-10-21 16:46] VITALS: BP 116/68
--- NOTE | 2016-10-21 17:31 | NUR ---
AT 1645: AT PT BEDSIDE FOR ASSESSMENT/MEDICATION ADMINISTRATION: NOTICED WORD FINDING DIFFICULTY. PT ABLE TO STATE [place], BUT NOT CURRENT LOCATION OR DATE. RISK COMPLIANCE MANAGER ROSIE AND RESIDENT GONZÁLEZ CALLED TO ROOM. HAND GRASPS WEAK BUT EQUAL, ABLE TO LIFT BOTH LEGS, FEET. NO ORDERS AT THIS TIME. AT 1710: PT UNABLE TO SPEAK, ONLY ABLE TO MAKE MOANING NOISES. PT ALSO NOTED TO BE DROOLING AT THIS TIME. VS 112/80, HR 66, OXYGEN 94% ROOM AIR, BS 109, 97.9 TEMP. STAT CAT SCAN, EKG, BEP/TROP ORDERED. WILL CTM
--- NOTE | 2016-10-21 17:43 | CT SCAN REPORT ---
EXAMINATION: CT HEAD WITHOUT CONTRAST CLINICAL INFORMATION: Slurred speech. COMPARISON: Head CT performed earlier today. TECHNIQUE: Contiguous axial imaging was performed from the skull base to vertex without intravenous administration of contrast. FINDINGS: Stable appearing severe confluence hypoattenuation throughout the supratentorial white matter that limits assessment for an acute white matter process. There is no intracranial hemorrhage, hydrocephalus, extra-axial surface collection, or midline shift. No dense cerebral artery sign. The basilar cisterns are preserved. No significant soft tissue findings. No acute osseous findings. 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 MRI could be obtained for more definitive assessment if not contraindicated.
--- NOTE | 2016-10-21 17:46 | Event Note ---
Event Note Event Note: Notified by nursing staff that patient was having a repeat episode of dysarthria. On presentation, patient was unable to pronounce his name or form any words, a change from 20 minutes prior when patient was able to pronounce his name. Vital signs at this time included HR 66, RR 18, BP 112/80 and O2 saturation of 95% on RA. Neuro exam showed inability to form words, though he was able to follow commands and rest of his neuro exam was non-focal. PERRLA, Head atraumatic, heart RRR + BRANDIE, lungs CTA b/l. Rapid response with stroke alert was ordered. Attending aware of events. Patient 's symptoms possibly secondary to symptomatic aortic stenosis with borderline low BP causing transient decreased cerebral perfusion. Will order 500 CC bolus NS. Neurology suggested head AND NECK MRA which will be done tomorrow. Stat labs and head CT done. Will follow. CT head showed chronic microangiopathy but no definite new infarcts. Troponin < 0.01 and prolactin normal. Will continue neurochecks and keep a close on eye patient. Night team will be made aware of events.
--- NOTE | 2016-10-21 17:49 | NUR ---
LATE ENTRY - THIS RN WAS IN THE PROCESS OF DISCHARGING THE PATIENT @ 1445, FINISHED EXPLAINING THE DISCHARGE PLANS & CMR REVIEW, AND WAS WAITING FOR W/C TRANSPORT, WHEN HE HAD AN EPISODE OF NOT BEING ABLE TO TALK. HE WAS AT FIRST RESPONDING TO ME WITH A LAUGH, STARTED STARING, THEN COULD NOT VERBALIZE. HE REMAINED CONSCIOUS AND COULD FOLLOW DIRECTIONS. HIS WHO WAS PRESENT AT THE TIME STATED THAT "THIS IS WHAT HAPPENED TO HIM ON THURSDAY". MDS WERE NOTIFIED AND PATIENT WAS TRANSPORTED TO CT SCAN ON MONITOR. EKG WAS DONE & LABS DRAWN INCLUDING PROLACTIN ON HIS RETURN. BP WAS 140/70, HR 69, O2 SAT 95% ON RA, RR 20, TEMP 97.7. DISCHARGE CANCELLED.
[2016-10-22 00:34] VITALS: BP 142/70
--- NOTE | 2016-10-22 07:46 | PN- Housestaff ---
MARLEEN HENDRIX 10/22/16 0746: Subjective Follow-up For: ? TIA vs cerebral hypoperfusion shoulder pain Tele-Events Since Last Visit: Sinus rhythm, HR 60s no events Subjective: seen and examined patient, today he has no problems verbalizing. Complains of left shoulder pain which is worsening. Denies palpitations, chest pain, headaches, shortness of breath, numbness or tingling. Spoke to [facility] Monzon [facility] regarding his [facility]. Patient was admitted for left facila numbness and slurring of the speech which completetly resolved. He was evaluated by a neurologist. On Sep 29 he outpt MRI/MRA. MRI showed a/c on subacute infarct in the mott radiata. MRA showed high grade atherosclerotic changes without hemodynamic compromise. His Carotid done in 2012 show mod-large plaque formation with <50% stenosis on right side and left side showed mod plaque formation with no significant stenosis. Review of Systems Constitutional: Denies: chills, diaphoresis, fever, malaise, weakness, unexplained weight loss. Cardiovascular: Denies: chest pain, edema, orthopena, palpitations, peripheral edema, syncope. Respiratory: Denies: cough, hemoptysis, orthopnea, short of breath, sputum production, stridor, wheezing. Musculoskeletal: Reports: joint pain. Objective Last 24 Hrs of Vital Signs/I&O Vital Signs Date Time Temp Pulse Resp B/P Pulse O2 O2 Flow FiO2 Ox Delivery Rate 10/22 0034 97.8 74 18 142/70 93 Room Air 10/21 2155 75 154/74 10/21 1646 97.6 61 17 116/68 91 Room Air 10/21 0829 70 130/70 Intake & Output 10/22 1600 10/22 0800 10/22 0000 Intake Total 1100 Output Total 525 3 Balance -525 1097 Intake, IV 500 Intake, Oral 600 Output, Other 3 Output, Urine 525 Patient 155 lb 160 lb Weight Physical Exam General Appearance: Alert, Oriented X3, Cooperative, No Acute Distress Cardiovascular: Regular Rate, Normal S1, Normal S2 Lungs: Clear to Auscultation, Normal Air Movement Abdomen: Normal Bowel Sounds, Soft, No Tenderness Neurological: Normal Speech, Strength at 5/5 X4 Ext, Normal Tone, Sensation Intact, Cranial Nerves 3-12 NL Extremities: No Edema, restricted ROM of left arm Assessment/Plan Assessment: 86-year-old gentleman with his past medical history significant for type 1 diabetes, hypertension, CVA, seizures, recurrent TIA (Jul 2014, January 2015), 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 CT head have been negative. No focal neurological deficits noted this morning. Complains of left shoulder pain. Problem list 1. TIA/hypoperfusion 2. Hypertension 3. History of CVA 4. History of intracranial bleed 5. Type 1 diabetes 6. left shoulder pain Plan He had extensive workup [MRI/echo/Holter monitor] done 2 [facility] ago at the [facility], will continue to try obtaining records from [facility] EEG within normal limits Neurology on board, continue dual Plavix,aspirin and high intensity statin, MRI/ MRA head neck today Cardiology consulted appreciate recommendations, echo shows EF of 80%, severe aortic stenosis. will obtain xray of left shoulder. Continue home meds of labetalol and lisinopril Continue to monitor fingersticks, continue basal and insulin sliding scale Lipid panel and thyroid function within normal limits On diabetic diet DVT prophylaxis subcutaneous heparin PT Patient is full code Problem List: 1. History of TIA (transient ischemic attack) 2. Diabetes Pain Ratin Pain Location: na Pain Goal: Pain 4 or less Pain Plan: current regimen Tomorrow's Labs & Rationales: none required Consulting Request: Consulting Specialty: Neurology ROB LEE MD 10/22/16 1147: Attending MD Review Statement Attending Statement Attending MD Statement: examined this patient, discuss w/resident/PA/SOLAR DEVELOPMENT ENGINEER, agreed w/resident/PA/SOLAR DEVELOPMENT ENGINEER, reviewed EMR data (avail) Attending Assessment/Plan: 86M PMH history of multiple TIA, aortic stenosis, HTN, HLD brought in for TIA after presenting with episode of aphasia. Yesterday, patient found he suddenly could not speak. He had no other neurological symptoms. This resolved within an hour. Had a similar episode on 09/27 that was also associated with left sided facial droop and right sided numbness. These symptoms resolved but he does report left eye blurry vision since then, though this may have been part of a glaucoma procedure he also had recently. He has a history of CVA and was placed on Aggrenox which resulted in left parietal hemorrhage, after which Aggrenox was stopped. On 10/21, patient was back to his baseline and ready to be discharged. In the afternoon he developed sudden onset aphasia. This last <5 minutes and he returned to baseline. 2 hours later, it occured again, with the same presentation and again lasted <5 minutes. He is currently at baseline. Repeat CT head was negative. He is currently asymptomatic with no neurological symptoms. Received 500mL NS yesterday. AFVSS NAD NCAT Supple RRR CTAB SOft, NTND No c/c/e Pulses intact A&Ox3, grossly normal 1. TIA 2. Aphasia 3. History of CVA 4. History of intracranial bleed Plan - Continue on telemetry - Neurology consult - [facility] - Add ASA to Plavix - MRI/MRA of head and neck - Continue Plavix, statin - Continue home medications - Neuro checks qshift - PT/OT - DVT PPx
[2016-10-22 08:13] VITALS: BP 148/66
--- NOTE | 2016-10-22 08:47 | PN- Cardiology ---
Subjective Subjective: * Patient experienced loss of speech yesterday with a non-descript feeling that something was wrong in his head. * Echo shows severe aortic stenosis with a normal EF and no evidence of intracardiac thrombus. Objective Vital Signs and I&Os Vital Signs Date Time Temp Pulse Resp B/P Pulse O2 O2 Flow FiO2 Ox Delivery Rate 10/22 0813 97.6 72 19 148/66 95 Room Air 10/22 0034 97.8 74 18 142/70 93 Room Air 10/21 2155 75 154/74 10/21 1646 97.6 61 17 116/68 91 Room Air Intake & Output 10/22 1600 10/22 0800 10/22 0000 10/21 1600 10/21 0800 10/21 0000 Intake Total 1100 360 Output Total 525 3 450 300 Balance -525 1097 -450 60 Intake, IV 500 10 Intake, Oral 600 350 Number 1 Bowel Movements Output, Other 3 Output, Urine 525 450 300 Patient 155 lb 160 lb 152 lb Weight Physical Exam: General: WD/WN male in NAD; alert and oriented x 3 HEENT: NC/AT, PERRL, EOMI, left eyelid drooping Neck: No JVD, bilateral carotid bruits L>R Heart: RRR with 3/6 systolic murmur at the RUSB and 2/6 systolic murmur at the LLSB Lungs: clear bilaterally Abdomen: soft, NT, +ve bowel sounds Extremities: no edema Neuro: muscle strength 5/5 throughout, mild left facial droop Assessment/Plan Assessment/Plan * This patient has had two carotid ultrasound studies with discordant results. In consideration of his multiple and frequent TIA's this patient should have a more definitive study. I recommend an MRA of the carotids. Continue Plavix. Continue telemetry? No
--- NOTE | 2016-10-22 14:00 | NUR ---
To MRI via MRI stretcher. telemetry monitor and leads taken off. Patient alert and oriented x3. Spouse to go with patient in case of any questions from the geotechnical field technician.
--- NOTE | 2016-10-22 14:01 | PN- Neurology ---
Subjective Subjective: Recurrent speech disturbance Objective Vital Signs and I&Os Vital Signs Date Time Temp Pulse Resp B/P Pulse O2 O2 Flow FiO2 Ox Delivery Rate 10/22 1045 72 118/60 10/22 0813 97.6 72 19 148/66 95 Room Air 10/22 0034 97.8 74 18 142/70 93 Room Air 10/21 2155 75 154/74 10/21 1646 97.6 61 17 116/68 91 Room Air Intake & Output 10/22 1600 10/22 0800 10/22 0000 10/21 1600 10/21 0800 10/21 0000 Intake Total 1100 360 Output Total 525 3 450 300 Balance -525 1097 -450 60 Intake, IV 500 10 Intake, Oral 600 350 Number 1 Bowel Movements Output, Other 3 Output, Urine 525 450 300 Patient 155 lb 160 lb 152 lb Weight Elderly white male, awake, alert and in no acute distress. Higher cortical function was grossly intact. Pupils were equal. Extraocular movements were full. The face was symmetric. He was mildly dysarthric. There was no drift of the upper extremities. There was no gross lateralizing weakness. Plantar responses were flexor. Current Medications: Current Medications Sig/Maikol Start time Last Medication Dose Route Stop Time Status Admin Acetaminophen 650 MG Q6P PRN 10/19 2045 AC 10/22 PO 1047 Aspirin 81 MG DAILY 10/21 1600 AC 10/22 PO 1045 Atorvastatin Calcium 80 MG 1700 10/19 2145 AC 10/21 PO 1651 Clopidogrel Bisulfate 75 MG DAILY 10/20 1000 AC 10/22 PO 1045 Diclofenac Sodium 1 FOSTER 4 TIMES/DAY 10/22 1000 AC TOP Heparin Sodium 5,000 UNIT Q8 10/190 AC 10/22 (Porcine) SC 1328 Ibuprofen 600 MG Q6P PRN 10/19 2045 AC PO Insulin Aspart 0 TIDAC 10/20 0800 AC 10/22 SC 1201 Insulin Detemir 15 UNITS BID 10/19 2200 AC 10/22 SC 1047 Labetalol HCl 300 MG BID 10/20 1000 AC 10/22 PO 1045 Lisinopril 10 MG DAILY 10/20 1000 AC 10/22 PO 1045 Oxycodone/ 2 TAB Q6P PRN 10/19 2045 AC Acetaminophen PO Patient Medication 1 ED .STK-MED ONE 10/21 1419 DC Teaching ED 10/21 1420 Sodium Chloride 500 ML BOLUS ONE 10/21 1814 DC 10/21 IV 10/21 Assessment/Plan Assessment: Waxing and waning speech disturbance. At present, he remains mildly dysarthric likely suggestive of a small subcortical infarct of indeterminate age. My suspicion is that his presentation is more suggestive of small vessel disease however MRA is planned and pending. For the present, would continue him on aspirin, Plavix and a statin. Any thoughts of more aggressive management would depend upon the results of his noninvasive vascular imaging. Plan: As above
--- NOTE | 2016-10-22 15:34 | NUR ---
Patient back from MRI. Placed back on supervisor blasting. Bed alarm on. Call marcus in reach. Family at bedside.
[2016-10-22 15:49] VITALS: BP 120/62
--- NOTE | 2016-10-22 19:39 | MRI REPORT ---
EXAMINATION MR BRAIN WITHOUT AND WITH CONTRAST MRA HEAD WITHOUT CONTRAST MRA NECK WITHOUT AND WITH CONTRAST CLINICAL INFORMATION: Dysphagia, carotid stenosis and TIA. COMPARISON: MRI scan of the head 03/27/2016, MRI and MRA of the head 02/27/2016 and MRA of the neck 08/04/2014. CT scan of the head 10/21/2016. TECHNIQUE: 3D [id number] MR angiography was performed through the brain and axial source images were reviewed along with rotating MIPs. A non-contrast MRI scan of the brain was obtained. Subsequently, 2-D [id number] and bolus IV enhanced MR angiography was performed through the cervicocerebral vasculature. Postcontrast T1 images of the brain were obtained. Source images were reviewed along with MIPs. Angled MIPs and volumetric reconstructions were independently generated and archived by the 3D laboratory. A total of 14 ml of intravenous Magnevist was utilized for the examination. FINDINGS: MRI BRAIN: There is an area of mildly increased diffusion signal without convincing low ADC map signal in the right periventricular white matter, which is most consistent with subacute ischemia. There is no convincing restricted diffusion to suggest an acute infarct. Linear diffusion signal around the wedge-shaped area of gradient hyperintensity is likely artifactual. No mass lesion, mass effect or midline shift is demonstrated. The ventricles and sulci are commensurately prominent consistent with moderate to severe diffuse volume loss. There are extensive areas of increased T2 and FLAIR signal in the periventricular and subcortical white matter diffusely, consistent with sequelae of severe microvascular ischemic disease. Changes in the srinivasa also appear stable. There are chronic lacunar infarcts in the basal ganglia, periventricular white matter, and the cerebellum demonstrated on prior imaging. No abnormal enhancement is seen. There are no extra-axial fluid collections apart from mild prominence of the extra-axial CSF. The craniovertebral junction, marrow signal, and midline structures are normal. The major intracranial flow-voids at the level of the [place] are preserved; the flow void from the left vertebral artery is not demonstrated (see below). The dural venous sinus flow-voids are maintained. There have been bilateral lens extractions. The mastoid air cells and paranasal sinuses are well-aerated. MRA NECK: There is a classic configuration of the aortic arch. The proximal arch vessels are nonstenotic. The right vertebral artery is dominant. The proximal left vertebral artery is markedly thinned, which was demonstrated on the prior study, and appears relatively unchanged. Both vessels are patent in the vertebral foramina extending intradurally. The common carotid arteries are widely patent. There is minimal irregularity at the bilateral carotid bifurcations, but without significant stenosis. These findings appear similar compared to the prior study. The cervical internal carotid arteries are widely patent bilaterally. MRA HEAD: In the anterior circulation, the distal internal carotid arteries within the neck appear normal. The intracranial internal carotid arteries and their bifurcations appear normal. The bilateral middle and right anterior cerebral arteries demonstrate normal caliber with no evidence of focal stenosis, aneurysm or vascular malformation. The left anterior cerebral artery redemonstrates slightly thinner caliber diffusely compared to the right, but is unchanged. There is normal arborization of the middle cerebral artery branches. The anterior communicating artery is normal. In the posterior circulation, the right vertebral artery is dominant. The left vertebral artery ends primarily in the PICA. The right vertebral artery is widely patent. The basilar artery appears normal. Both posterior cerebral arteries arise primarily off the anterior circulation, a normal variant, demonstrated on prior imaging. IMPRESSION: MRI brain: 1. There is no convincing evidence for acute infarction. There is an area of mildly increased diffusion signal without convincing low ADC map signal in the right periventricular white matter, consistent with subacute ischemia. 2. The wedge-shaped area of low gradient signal in the left parietal lobe is consistent with evolution of the previously demonstrated hemorrhage. 3. The study redemonstrates extensive microvascular ischemic disease, lacunar infarctions and diffuse volume loss. MRA head and neck: 1. The origin of the left vertebral artery is markedly thinned, unchanged. 2. There is no significant stenosis of the carotid bifurcations or carotid arteries. 3. No focal stenosis, aneurysm or vascular malformation are demonstrated intracranially.
[2016-10-22 23:32] VITALS: BP 156/76
[2016-10-23 08:34] VITALS: BP 130/60
--- NOTE | 2016-10-23 09:16 | PN- Housestaff ---
LEYDICLAIREMARLEEN WALKER 10/23/16 0915: Subjective Follow-up For: CVA Left shoulder pain Tele-Events Since Last Visit: Sinus rhythm no overnight events Subjective: Seen and examined patient offers no complaints. Able to articulate words, very minimal slurring of speech. Denies any numbness weakness tingling of his upper and lower extremities states that his left shoulder pain is improved with Voltaren gel. Review of Systems Constitutional: Denies: chills, diaphoresis, fever, malaise, weakness, unexplained weight loss. Cardiovascular: Denies: chest pain, edema, orthopena, palpitations, peripheral edema, syncope. Respiratory: Denies: cough, hemoptysis, orthopnea, short of breath, sputum production, stridor, wheezing. Gastrointestinal: Denies: abdominal pain, bloating, constipation, diarrhea, distention, bowel incontinence, melena, nausea, bloody stool, changes in stool, vomiting, steatorrhea. Objective Last 24 Hrs of Vital Signs/I&O Vital Signs Date Time Temp Pulse Resp B/P Pulse O2 O2 Flow FiO2 Ox Delivery Rate 10/23 0834 97.5 64 20 130/60 95 Room Air 10/23 0800 Room Air 10/22 2332 97.9 72 18 156/76 96 Room Air 10/22 2155 67 130/60 10/22 1549 97.8 64 18 120/62 95 Room Air 10/22 1045 72 118/60 Intake & Output 10/23 1600 10/23 0800 10/23 0000 Intake Total 448 240 Output Total 400 Balance 48 240 Intake, IV 208 Intake, Oral 240 240 Output, Urine 400 Patient 192 lb Weight Physical Exam General Appearance: Alert, Oriented X3, Cooperative, No Acute Distress Cardiovascular: Regular Rate, Normal S1, Normal S2 Lungs: Clear to Auscultation, Normal Air Movement Abdomen: Normal Bowel Sounds, Soft, No Tenderness Neurological: Normal Gait, Normal Speech, Strength at 5/5 X4 Ext, Normal Tone, Sensation Intact, Cranial Nerves 3-12 NL Current Medications: Current Medications Sig/Maikol Start time Last Medication Dose Route Stop Time Status Admin Acetaminophen 650 MG .STK-MED ONE 10/22 1036 DC PO 10/22 1037 Acetaminophen 650 MG Q6P PRN 10/19 2045 AC 10/22 PO 1047 Aspirin 81 MG DAILY 10/21 1600 AC 10/22 PO 1045 Atorvastatin Calcium 80 MG 1700 10/19 2145 AC 10/22 PO 1609 Clopidogrel Bisulfate 75 MG DAILY 10/20 1000 AC 10/22 PO 1045 Diclofenac Sodium 1 FOSTER 4 TIMES/DAY 10/22 1000 AC 10/22 TOP 2150 Heparin Sodium 5,000 UNIT Q8 10/19 2200 AC 10/23 (Porcine) SC 0519 Ibuprofen 600 MG Q6P PRN 10/19 2045 AC PO Insulin Aspart 0 TIDAC 10/20 0800 AC 10/22 SC 1720 Insulin Detemir 15 UNITS BID 10/19 2200 AC 10/22 SC 2149 Labetalol HCl 300 MG BID 10/20 1000 AC 10/22 PO 2155 Lisinopril 10 MG DAILY 10/20 1000 AC 10/22 PO 1045 Oxycodone/ 2 TAB Q6P PRN 10/19 204 AC Acetaminophen PO Assessment/Plan Assessment: 86-year-old gentleman with his past medical history significant for type 1 diabetes, hypertension, CVA, seizures, recurrent TIA (Jul 2014, January 2015), 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 CT head have been negative. No focal neurological deficits noted this morning. Complains of left shoulder pain. MRI head shows no evidence of acute infarction, wedge-shaped area and left parietal lobe possible previous hemorrhage, lacuna infarcts extensive microvascular ischemic disease and diffuse volume loss. MRA shows no focal stenosis aneurysm or vascular malformation. Problem list 1. TIA/hypoperfusion 2. Hypertension 3. History of CVA 4. History of intracranial bleed 5. Type 1 diabetes 6. left shoulder pain Plan Records from [facility] in the chart EEG within normal limits Neurology on board, continue dual Plavix,aspirin and high intensity statin, Cardiology consulted appreciate recommendations, echo shows EF of 80%, severe aortic stenosis. Continue home meds of labetalol and lisinopril Continue to monitor fingersticks, continue basal and insulin sliding scale Lipid panel and thyroid function within normal limits On diabetic diet DVT prophylaxis subcutaneous heparin PT Patient is full code Patient stable for discharge today, spoke to at length regarding following up with his neurologist and patient access associate at the [facility]. They have an appointment on October 27 Problem List: 1. History of CVA (cerebrovascular accident) 2. History of TIA (transient ischemic attack) 3. Hypertension Pain Ratin Pain Location: Left shoulder Pain Goal: Pain 4 or less Pain Plan: Current regimen Tomorrow's Labs & Rationales: None required Consulting Request: Consulting Specialty: Neurology ROSA ROLONROB 10/23/16 1229: Attending MD Review Statement Attending Statement Attending MD Statement: examined this patient, discuss w/resident/PA/[employer] DIV[employer] CHAIR, agreed w/resident/PA/[employer] DIV[employer] CHAIR, reviewed EMR data (avail) Attending Assessment/Plan: 86M PMH history of multiple TIA, aortic stenosis, HTN, HLD brought in for TIA after presenting with episode of aphasia. Yesterday, patient found he suddenly could not speak. He had no other neurological symptoms. This resolved within an hour. Had a similar episode on 09/27 that was also associated with left sided facial droop and right sided numbness. These symptoms resolved but he does report left eye blurry vision since then, though this may have been part of a glaucoma procedure he also had recently. He has a history of CVA and was placed on Aggrenox which resulted in left parietal hemorrhage, after which Aggrenox was stopped. On 10/21, patient was back to his baseline and ready to be discharged. In the afternoon he developed sudden onset aphasia. This last <5 minutes and he returned to baseline. 2 hours later, it occured again, with the same presentation and again lasted <5 minutes. He is currently at baseline. Repeat CT head was negative. He is currently asymptomatic with no neurological symptoms. AFVSS NAD NCAT Supple RRR CTAB SOft, NTND No c/c/e Pulses intact A&Ox3, grossly normal 1. TIA 2. Aphasia 3. History of CVA 4. History of intracranial bleed Plan - Stable for discharge - Follow up with [facility] neurology and PCP as outpatient - Will continue Plavix, statin - MRI/MRA of head and neck complete, no acute changes - Continue home medications
[2016-10-23 09:32] VITALS: BP 130/60
--- NOTE | 2016-10-23 11:14 | PN- Cardiology ---
Subjective Subjective: * Alfredo is feeling better and speaking a bit better although not quite normally. * No complaints of lightheadedness, shortness of breath or chest discomfort. * MRA did not show any carotid stenosis Objective Vital Signs and I&Os Vital Signs Date Time Temp Pulse Resp B/P Pulse O2 O2 Flow FiO2 Ox Delivery Rate 10/23 0932 64 130/60 10/23 0932 64 130/60 10/23 0834 97.5 64 20 130/60 95 Room Air 10/23 0800 Room Air 10/22 2332 97.9 72 18 156/76 96 Room Air 10/22 2155 67 130/60 10/22 1549 97.8 64 18 120/62 95 Room Air Intake & Output 10/23 1600 10/23 0800 10/23 0000 10/22 1600 10/22 0800 10/22 0000 Intake Total 448 957 647 1910 Output Total 400 525 3 Balance 48 240 560 -525 1097 Intake, IV 208 500 Intake, Oral 240 240 560 600 Number 1 Bowel Movements Output, Other 3 Output, Urine 400 525 Patient 192 lb 155 lb 160 lb Weight Physical Exam: General: WD/WN male in NAD; alert and oriented x 3 HEENT: NC/AT, PERRL, EOMI, left eyelid drooping Neck: No JVD, bilateral carotid bruits L>R Heart: RRR with 3/6 systolic murmur at the RUSB and 2/6 systolic murmur at the LLSB Lungs: clear bilaterally Extremities: no edema Neuro: muscle strength 5/5 throughout, mild left facial droop Assessment/Plan Assessment/Plan * This patient has no MRA evidence of significant carotid stenosis. He does have aortic stenosis but the family is not inclined to pursue a surgical intervention for this at this point in time. The patient has no symptoms that portend a poor short term prognosis for at this time. He is hemodynamically stable in sinus rhythm. Continue aspirin, Plavix and a statin. Continue his Lisinopril and Labetolol. Stable for discharge from a cardiac perspective. Follow up in the office in one week. Continue telemetry? No
[2016-10-23] MEDS ORDERED: ASPIRIN EC81 M1 PO (14:30)
[2016-10-23] MEDS ORDERED: LISINOPRIL10 M1 PO (14:38)
[2016-10-23] MEDS ORDERED: PRAVASTATIN SOD40 M2 PO (15:21)
--- NOTE | 2016-10-23 15:39 | Discharge Summary ---
Visit Information Visit Dates Admission Date: 10/19/16 Discharge Date: 10/23/16 Hospital Course Course Attending Physician: ROB LEE MD Primary Care Physician: ARMANDO ROLON,ARLET R[place] Consulting Request: Consulting Specialty: Neurology Hospital Course: 86-year-old gentleman with his past medical history significant for type 1 diabetes, hypertension, CVA, seizures, recurrent TIA (Jul 2014, January 2015), hemorrhagic infarct (May 2015) while on aggrenox, after which he was kept off antiplatelet therapy with resultant TIA's in Jul 2015 and January 2016 currently on aspirin, Aortic stenosis, hyperlipidemia, nephrolithiasis, arthritis was admitted to [facility] for episode of of 10-15 minutes dysarthria. Per witness during the episode he was awake and alert but was unable to formulate any words. Patient was able to remember the episode. Denied any confusion, dizziness, weakness, LOC, headache, or any other deficits. 2 weeks prior to admission he had been admitted to the [place] facial numbness with droop. He had an outpatient MRI and an echocardiogram and a two day holter monitor week prior to admission. On admission Vitals stable except for hypertension SBP 170-180's. Labs pertinent for macrocytosis, BUN 25, trop neg, TSH normal. UA clear, Utox neg. Alcohol < 10. CXR: neg. Head CT: no acute pathology, Head CT: no acute pathology, involutional changes enlargement of ventricles and sulci, ischemic small vessel disease. He was admitted to the telemetry floor and the following problems were addressed : TIA versus CVA He remained hemodynamically stable and no events were recorded on telemetry monitoring. While on the floor patient had 2 episodes of dysarthria lasting a few minutes with complete resolution. MRI head shows no evidence of acute infarction, wedge- shaped area and left parietal lobe possible previous hemorrhage, lacuna infarcts extensive microvascular ischemic disease and diffuse volume loss. MRA shows no focal stenosis aneurysm or vascular malformation. EEG within normal limits. Echo showed EF of 80%, severe aortic stenosis. Neurology and cardiology followed patient. He was started on Plavix along with his aspirin and high-intensity statin. Lipid panel and thyroid function was within normal limits. 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 Appointment to PCP was given to them for Thursday, October 27. Hypertension Home meds of labetalol and lisinopril were continued Type 1 diabetes Kept on basal and insulin sliding scale Allergies: Coded Allergies: Iodinated Contrast Media - Oral and (IODINATED CONTRAST MEDIA - IV DYE) (SARA, HIVMARIE 05/11/16) Significant Procedures: SERVICE DATE: 10/19/16 EXAM TYPE: RAD - XRY-PORTABLE CHEST XRAY FINDINGS: The cardiac mediastinal silhouette is borderline enlarged, unchanged. Slight elevation of the right hemidiaphragm is noted, unchanged. Lungs bilaterally remain clear. No focal consolidation, effusion or axis is seen. Bony structures are unremarkable. IMPRESSION: Unchanged appearance of the chest with no acute cardiopulmonary process seen. SERVICE DATE: 10/19/16 EXAM TYPE: CAT - CT HEAD WO IV CONTRAST SERVICE DATE: 10/19/16 EXAM TYPE: CAT - CT HEAD WO IV CONTRAST SERVICE DATE: 10/20/16- EXAM TYPE: US - PP-OBHUIPI-VEGYIMVIM DOPPLER FINDINGS: 1. On the right: Plaque is present at the carotid bifurcation but velocity measurements are normal and do not suggest a stenosis of greater than 50% diameter reduction in the right ICA. The right ECA demonstrates a mild stenosis with peak systolic velocity of under 200 cm/s. The vertebral artery is patent demonstrating antegrade flow. SERVICE DATE: 10/20/16- EXAM TYPE: CARD - ECHOCARDIOGRAM FINDINGS Left Ventricle Normal left ventricular size with mild left ventricular hypertrophy. Normal systolic function with no obvious regional wall motion abnormalities. Diastolic filling pattern is consistent with impaired LV relaxation. The ejection fraction is visually estimated at 80%. Right Ventricle The right ventricle is normal in size and function. Right Atrium The right atrium is normal in size. Left Atrium The left atrium is mildly enlarged. The interatrial septum is intact. Mitral Valve The mitral valve demonstrates mild posterior annular calcification with normal function. There is mild mitral regurgitation. Aortic Valve Severely thickened and sclerotic aortic valve with decreased leaflet excursion. Severe aortic stenosis is noted. There is mild aortic regurgitation. Tricuspid Valve The tricuspid valve is normal in structure and function. There is mild tricuspid regurgitation. Pulmonary artery systolic pressure is normal. Pulmonic Valve Structurally normal pulmonic valve. There is trace pulmonic regurgitation. Pericardium Normal pericardium without effusion. No pleural effusion. Great Vessels Normal aortic root dimension. The aortic arch and great vessels are well seen and are normal. CONCLUSIONS 1. Normal EF of 80% with impaired LV relaxation. 2. Mild left ventricular hypertrophy. 3. Mild left atrial enlargment. 4. Mild mitral regurgitation. 5. Mild tricuspid regrugitation. 6. Severe aortic stenosis. Mild aortic regurgitation. 7. Trace pulmonic regurgitation. SERVICE DATE: 10/22/16 EXAM TYPE: MRI - MRA-HEAD; MRA-NECK W ARNEL; MRI-HEAD W & W/O ARNEL FINDINGS: MRI BRAIN: There is an area of mildly increased diffusion signal without convincing low ADC map signal in the right periventricular white matter, which is most consistent with subacute ischemia. There is no convincing restricted diffusion to suggest an acute infarct. Linear diffusion signal around the wedge-shaped area of gradient hyperintensity is likely artifactual. No mass lesion, mass effect or midline shift is demonstrated. The ventricles and sulci are commensurately prominent consistent with moderate to severe diffuse volume loss. There are extensive areas of increased T2 and FLAIR signal in the periventricular and subcortical white matter diffusely, consistent with sequelae of severe microvascular ischemic disease. Changes in the srinivasa also appear stable. There are chronic lacunar infarcts in the basal ganglia, periventricular white matter, and the cerebellum demonstrated on prior imaging. No abnormal enhancement is seen. There are no extra-axial fluid collections apart from mild prominence of the extra-axial CSF. The craniovertebral junction, marrow signal, and midline structures are normal. The major intracranial flow-voids at the level of the [place] are preserved; the flow void from the left vertebral artery is not demonstrated (see below). The dural venous sinus flow-voids are maintained. There have been bilateral lens extractions. The mastoid air cells and paranasal sinuses are well-aerated. MRA NECK: There is a classic configuration of the aortic arch. The proximal arch vessels are nonstenotic. The right vertebral artery is dominant. The proximal left vertebral artery is markedly thinned, which was demonstrated on the prior study, and appears relatively unchanged. Both vessels are patent in the vertebral foramina extending intradurally. The common carotid arteries are widely patent. There is minimal irregularity at the bilateral carotid bifurcations, but without significant stenosis. These findings appear similar compared to the prior study. The cervical internal carotid arteries are widely patent bilaterally. MRA HEAD: In the anterior circulation, the distal internal carotid arteries within the neck appear normal. The intracranial internal carotid arteries and their bifurcations appear normal. The bilateral middle and right anterior cerebral arteries demonstrate normal caliber with no evidence of focal stenosis, aneurysm or vascular malformation. The left anterior cerebral artery redemonstrates slightly thinner caliber diffusely compared to the right, but is unchanged. There is normal arborization of the middle cerebral artery branches. The anterior communicating artery is normal. In the posterior circulation, the right vertebral artery is dominant. The left vertebral artery ends primarily in the PICA. The right vertebral artery is widely patent. The basilar artery appears normal. Both posterior cerebral arteries arise primarily off the anterior circulation, a normal variant, demonstrated on prior imaging. IMPRESSION: MRI brain: 1. There is no convincing evidence for acute infarction. There is an area of mildly increased diffusion signal without convincing low ADC map signal in the right periventricular white matter, consistent with subacute ischemia. 2. The wedge-shaped area of low gradient signal in the left parietal lobe is consistent with evolution of the previously demonstrated hemorrhage. 3. The study redemonstrates extensive microvascular ischemic disease, lacunar infarctions and diffuse volume loss. MRA head and neck: 1. The origin of the left vertebral artery is markedly thinned, unchanged. 2. There is no significant stenosis of the carotid bifurcations or carotid arteries. 3. No focal stenosis, aneurysm or vascular malformation are demonstrated intracranially. Disposition Summary Disposition Principal Diagnosis: TIA versus focal seizure Additional Diagnosis: 1. TIA/hypoperfusion 2. Hypertension 3. History of CVA 4. History of intracranial bleed 5. Type 1 diabetes Discharge Disposition: home or self care Discharge Instructions General Discharge Information Code Status: Full Code Patient's Diet: Diabetic diet Patient's Activity: As tolerated Follow-Up Instructions/Appts: follow up with primary care physician within one week of discharge follow up with neurologist within two weeks of discharge follow up with farmer and grazier within two weeks of discharge Medications at Discharge Discharge Medications: Continue taking these medications: Insulin Glargine,Hum.rec.anlog (Lantus Solostar) 100 UNIT/ML (3 ML) INSULN.PEN 40 Unit Inject into fatty tissue Every night Comments: Last Taken: 10/23/16 Time: 9:40 AM Aspirin (Ecotrin*) 81 MG TABLET.DR 1 Tablet ORAL DAILY Days = 30 Comments: Last Taken: 10/23/16 Time: 9:30 am Labetalol HCl (Labetalol HCl) 300 MG TABLET 1 Tablet ORAL TWICE DAILY Comments: Last Taken: 10/23/15 Time: 9:30 AM Start taking the following new medications: Clopidogrel Bisulfate (Plavix) 75 MG TABLET 1 Milligram ORAL DAILY Qty = 30 No Refills Comments: Last Taken: 10/23/16 Time: 9:30 AM Atorvastatin Calcium (Atorvastatin Calcium) 80 MG TABLET 1 Tablet ORAL 5 PM Qty = 30 No Refills Comments: Last Taken: 10/22/16 Time: 4:00 PM Lisinopril (Lisinopril) 10 MG TABLET 1 Tablet ORAL DAILY Days = 30 No Refills Comments: Last Taken: 10/23/16 Time: 9:30AM Copies To: ARMANDO ROLON,ARLET RICHMOND Attending MD Review Statement Documenting Attending: ROB LEE MD
== END 2016-10-23 15:35 | DRG 69 ==
LOC: ENRESERVDT → ENRESERVTM → ERH 11:52 → 1NO 17:54 → ENPENDDIS 17:54 → DELPENDDIS 17:54 → 1NO 17:54 → ERHI 17:54 → 1NO 22:09
PROVIDERS: Emergency Medicine; Internal Medicine; ADMIT Student in an Organized Health Care Education/Training Program
DX: G45.9 Transient cerebral ischemic attack, unspecified (principal); I35.0 Nonrheumatic aortic (valve) stenosis; E11.9 Type 2 diabetes mellitus without complications; I10 Essential (primary) hypertension; E78.5 Hyperlipidemia, unspecified
CPT/HCPCS: 1NSP; 6020; 70552; 70555; 70563; 36415; 70553; 80307; 81001; 82436; 87086; 93005; 93010; 93306; 95816; 97116-GP; 97161-GP; A9579; G0378; G0480; J1644; J3490; J7040

== ENCOUNTER 2017-09-07 13:02 | Observation (INO) | payer OTHER ==
[~2017-09-07] VITALS: Ht 162.6 cm; Wt 69.4 kg
[~2017-09-07 13:02] MED LIST changes: +ASPIRIN EC81 M1 PO; +ATORVASTATIN CA80 M1 PO; +LABETALOL HCL300 M1 PO; +PLAVIX75 M1 PO; +PRAVASTATIN SOD40 M2 PO
--- NOTE | 2017-09-07 13:16 | ED NEURO DEFICIT/STROKE ---
History of Present Illness General Chief Complaint: Neuro Symptoms/ Deficit Stated Complaint: BIBA FOR STROKE ALERT Source: patient, family, old records, EMS Exam Limitations: clinical condition Allergies Coded Allergies: Iodinated Contrast- Oral and IV Dye (IODINATED CONTRAST MEDIA - IV DYE) (SOB, HIVES 05/11/16) Reconcile Medications Aspirin (Ecotrin*) 81 MG TABLET.DR 1 TAB PO DAILY HEART/BLOOD (Reported) Atorvastatin Calcium 80 MG TABLET 1 TAB PO 1700 TIA Clopidogrel Bisulfate (Plavix) 75 MG TABLET 1 MG PO DAILY TIA Insulin Glargine,Hum.rec.anlog (Lantus Solostar) 100 UNIT/ML (3 ML) INSULN.PEN 40 UNIT SC QPM DIABETES (Reported) Labetalol HCl 300 MG TABLET 1 TAB PO BID BP (Reported) Lisinopril 10 MG TABLET 1 TAB PO DAILY BLOOD PRESSURE Pravastatin Sodium 40 MG TABLET 1 TAB PO QPM CHOLESTEROL (Reported) Triage Nurses Notes Reviewed? yes HPI: 87 year old male presents (Michael ROLON,Chery) Vital Signs & Intake/Output Vital Signs & Intake/Output Vital Signs Date Time Temp Pulse Resp B/P B/P Pulse O2 O2 Flow FiO2 Mean Ox Delivery Rate 09/08 1036 96.9 84 18 158/71 09/08 1036 96.9 61 18 158/71 09/08 0852 96.9 84 18 158/71 94 Room Air 09/08 0612 98.6 67 20 120/57 97 Room Air 09/07 2226 98.1 76 18 123/98 95 Room Air 09/07 1823 97.8 73 18 170/81 97 Room Air 09/07 1823 97.8 73 18 170/81 97 Room Air 09/07 1822 97.8 73 18 170/81 97 Room Air 09/07 1536 97.7 61 18 160/89 94 Room Air 09/07 1527 97.7 61 18 160/89 94 Room Air 09/07 1328 94 Room Air 09/07 1325 97.9 66 18 139/63 99 Room Air ED Intake and Output 09/08 0000 09/07 1200 Intake Total 240 Output Total Balance 240 Intake, Oral 240 Patient 153 lb Weight Weight Reported by Patient Measurement Method HPI: 87-year-old gentleman with a PMH diabetes, HTN, HLD, aortic stenosis, intracranial bleed on 08/23/2014, right-sided CVA in 2014, treated with seizures for which she has been on Keppra 500 BID who was BIBA for slurred speech and generalized weakness. Information obtained from patients : Patient was noticeably tired most of yesterday after he woke up earlier than normal to watch the powerball but no noticeable slurred speech, choking on food or worsening gait instability. This morning he woke up around 7 AM, was able to have his breakfast with no noticeable deficits. His left to run errands but received a call from him around 10 AM with complaints of "not feeling well" but was also noticeably slurred in speech. On arrival in the ED he was noted to have a R facial droop and generalized weakness (2/5) that progressively improved over a 15-20 minute period. No reports of recent illnesses, changes in medications, CP, palpitations, SOB, N /V. (Shane Freitas MD) Past History Travel History Traveled to [place] past 21 day No Medical History Any Pertinent Medical History? 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 No (Shane Freitas MD) Review of Systems Review of Systems Constitutional: Reports: see HPI. EENTM: Reports: see HPI. Respiratory: Reports: no symptoms. Cardiovascular: Reports: no symptoms. GI: Reports: no symptoms. Genitourinary: Reports: no symptoms. Musculoskeletal: Reports: see HPI. Neurological/Psychological: Reports: see HPI. (Shane Freitas MD) Physical Exam Physical Exam Peripheral Pulses: 2+ radial (R), 2+ radial (L) Psychiatric: awake, alert, oriented x 3 Motor/Sensory: no motor/sensory deficits Skin: intact, normal color, warm/dry (Chris Rodriguez MDrani) Physical Exam General Appearance: no apparent distress, alert, comfortable Head: No evidence of facial droop Eyes: Bilateral: PERRL, EOMI. Ears, Nose, Throat: moist mucous membrane Neck: normal inspection Respiratory: normal breath sounds, no respiratory distress, lungs clear Cardiovascular: regular rate/rhythm, normal peripheral pulses Gastrointestinal: normal bowel sounds, soft, non-tender Extremities: normal range of motion Cranial Nerves: normal hearing, PERRL, CN 3-12 intact. No dysmmetria/ dysdiadokinesia Coordination/Gait: normal finger to nose Core Measures CVA/TIA Diagnosis: Yes Sepsis Present: No Sepsis Focused Exam Completed? No (Fortino ROLON,[place]) Progress Diagnostic Imaging: Viewed by Me: Radiology Read, CT Scan. Discussed w/RAD: Radiology Read, CT Scan. Radiology Impression: PATIENT: GONZÁLEZ HASSAN PRESENT AGE: 87 PATIENT ACCOUNT NO: [id number] : 30 LOCATION: [facility] ORDERING PHYSICIAN: Chery Rodriguez MD SERVICE DATE: 09/07/17 EXAM TYPE: CAT - CT HEAD WO IV CONTRAST EXAMINATION: CT HEAD WITHOUT CONTRAST CLINICAL INFORMATION: Right-sided weakness. Question CVA. COMPARISON: Brain MRI 10/22/2016. TECHNIQUE: Contiguous axial imaging was performed from the skull base to vertex without intravenous administration of contrast. DLP: 620 mGy-cm. FINDINGS: There is no intracranial hemorrhage, large new infarction, or mass lesion. There is no extra -axial collection. There is moderate to severe confluent patchy hypoattenuation in the bilateral cerebral white matter, which is nonspecific but likely reflects small vessel disease. There are old lacunar infarcts within the bilateral basal ganglia and cerebellar hemispheres. The paranasal sinuses are clear. The mastoids and middle ear cavities are clear. There are atherosclerotic calcification of the carotid siphons and vertebral arteries. IMPRESSION: 1. No acute intracranial abnormality identified. Specifically there is no evidence of large territory infarct or hemorrhage. 2. Extensive small vessel ischemic changes. In this setting a new superimposed lacunar infarction is difficult to exclude. 3. Mild diffuse brain parenchymal volume loss. This critical result was discussed with Chery Rodriguez on 09/07/2017 1:17 PM, and it was ascertained that the content and urgency of the report was understood at the time of direct communication. DICTATED BY: Lexi Hamilton MD DATE/TIME DICTATED:09/07/171311 TRAVELING STOREKEEPER:KENNY DATE/TIME TRANSCRIBED:09/07/171311 CONFIDENTIAL, DO NOT COPY WITHOUT APPROPRIATE AUTHORIZATION. <Electronically signed in Other Vendor System> SIGNED BY: Lexi Hamilton MD 09/07/17 1321, PATIENT: GONZÁLEZ HASSAN PRESENT AGE: 87 PATIENT ACCOUNT NO: [id number] : 30 LOCATION: [facility] ORDERING PHYSICIAN: Chery Rodriguez MD SERVICE DATE: 09/07/17 EXAM TYPE: CAT - CT HEAD WO IV CONTRAST EXAMINATION: CT HEAD WITHOUT CONTRAST CLINICAL INFORMATION: Right-sided weakness. Question CVA. COMPARISON: Brain MRI 10/22/2016. TECHNIQUE: Contiguous axial imaging was performed from the skull base to vertex without intravenous administration of contrast. DLP: 620 mGy-cm. FINDINGS: There is no intracranial hemorrhage, large new infarction, or mass lesion. There is no extra-axial collection. There is moderate to severe confluent patchy hypoattenuation in the bilateral cerebral white matter, which is nonspecific but likely reflects small vessel disease. There are old lacunar infarcts within the bilateral basal ganglia and cerebellar hemispheres. The paranasal sinuses are clear. The mastoids and middle ear cavities are clear. There are atherosclerotic calcification of the carotid siphons and vertebral arteries. IMPRESSION: 1. No acute intracranial abnormality identified. Specifically there is no evidence of large territory infarct or hemorrhage. 2. Extensive small vessel ischemic changes. In this setting a new superimposed lacunar infarction is difficult to exclude. 3. Mild diffuse brain parenchymal volume loss. This critical result was discussed with Chery Rodriguez on 09/07/2017 1:17 PM, and it was ascertained that the content and urgency of the report was understood at the time of direct communication. DICTATED BY: Lexi Hamilton MD DATE/TIME DICTATED:09/07/171311 TRAVELING STOREKEEPER:KENNY DATE/TIME TRANSCRIBED:09/07/171311 CONFIDENTIAL, DO NOT COPY WITHOUT APPROPRIATE AUTHORIZATION. <Electronically signed in Other Vendor System> SIGNED BY: Lexi Hamilton MD 09/07/17 1321 Initial ED EKG: NSR, LVH, UNCHANGED Rhythm Strip: normal sinus rhythm (Chery Rodriguez MD) Differential Diagnosis: seizure disorder, TIA Plan of Care: Orders Procedure Date/time Status Change service to 09/08 1303 Active Vital Signs 09/08 0751 Active Teach/Educate 09/08 0751 Active Pain Treatment and Response 09/08 0751 Active Nutritional Intake, Monitor 09/08 0751 Active Isolation 09/08 0751 Active Intake & Output 09/08 0751 Active Patient Care Conference 09/08 075 Active Activity/Ambulation 09/08 0751 Active CBC WITHOUT DIFFERENTIAL 09/08 06 Complete BASIC ELECTROLYTES PLUS BUN&CR 09/08 06 Complete TROPONIN LEVEL 09/08 0100 Complete EKG 09/08 0100 Active Therapeutic Exercise X 15 09/08 UNK Complete MOBILITY D/C STATUS 09/08 UNK Complete MOBILITY GOAL STATUS 09/08 UNK Complete MOBILITY CURRENT STATUS 09/08 UNK Complete Gait Training, 15 Min 09/08 UNK Complete PT EVAL LOW COMPLEX 20 MIN 09/08 UNK Complete OTHER PT/OT D/C STATUS 09/08 UNK Complete OTHER OT/PT CURRENT STATUS 09/08 UNK Complete OT EVAL MOD COMPLEX 45 MIN 09/08 UNK Complete Heart Healthy Diet 09/07 D Active TROPONIN LEVEL 09/07 1900 Complete EKG 09/07 1900 Active SWALLOW EVALUATION 09/07 1529 Active PT Evaluate & Treat 09/07 1529 Active Pathway - chart 09/07 1529 Active House Staff 09/07 1529 Active Patient Data 09/07 1529 Active Code Status 09/07 1529 Active Code Status 09/07 1458 Complete ELECTROENCEPHALOGRAM 09/[address] in observation 09/07 1437 Active Vital Signs 09/07 1437 Active Patient Data 09/07 1433 Active Add-on Test (ER Only) 09/07 1402 Active URINALYSIS 09/07 1325 Complete FingerStick- Glucose 09/07 1323 Active Intake & Output 09/07 1322 Active TROPONIN LEVEL 09/07 1318 Complete FOLIC ACID 09/07 1318 Complete VITAMIN B12 09/07 1318 Complete Telemetry/Street Light Servicer 09/07 1317 Active EKG 09/07 1315 Active PROTHROMBIN TIME 09/07 1313 Complete COMPREHENSIVE METABOLIC PANEL 09/07 1313 Complete CBC WITHOUT DIFFERENTIAL 09/07 1313 Complete Lab Add-on Test 09/07 UNK Active Occupational Tx Eval & Treat 09/07 UNK Active VTE Mechanical Prophylaxis 09/07 UNK Active Vital Signs 09/07 UNK Complete MISTAKE 09/07 UNK Active Telemetry/Street Light Servicer 09/07 UNK Active NIH Stroke Scale 09/07 UNK Active FingerStick- Glucose 09/07 UNK Active Current Medications Sig/Maikol Start time Last Medication Dose Stop Time Status Admin Clopidogrel Bisulfate 75 MG DAILY 09/08 1000 AC 09/08 (Plavix) 1036 Enoxaparin Sodium 40 MG DAILY 09/08 1000 AC 09/08 (Lovenox) 1036 Insulin Detemir 35 UNITS DAILY 09/08 1000 AC 09/08 (Levemir) 1049 Labetalol HCl 300 MG BID 09/08 1000 AC (Trandate-Normodyne 200MG Tab) Lisinopril 10 MG DAILY 09/08 1000 AC 09/08 (Prinivil) 1036 Levetiracetam 1,000 MG BID 09/07 2200 AC 09/08 (Keppra) 1036 Atorvastatin Calcium 80 MG 1700 09/07 1700 AC 09/07 (Lipitor) 1821 Insulin Aspart 0 TIDAC 09/07 1700 AC 09/08 (NovoLOG) 1126 Acetaminophen 650 MG Q6P PRN 09/07 1530 AC (Tylenol) Acetaminophen 1,000 MG Q6P PRN 09/07 1530 AC (Ofirmev) Laboratory Tests 09/08/17 0610: Anion Gap 12, Estimated GFR > 60, BUN/Creatinine Ratio 22.9, CBC w Diff NO MAN DIFF REQ, RBC 3.11 L, MCV 95.8 H, MCH 33.0 H, RDW 15.1 H, MPV 8.1, Gran % 59.4, Lymphocytes % 25.8, Monocytes % 9.2, Eosinophils % 5.1 H, Basophils % 0.5 , Absolute Granulocytes 4.3, Absolute Lymphocytes 1.9, Absolute Monocytes 0.7 H , Absolute Eosinophils 0.4, Absolute Basophils 0, PUBS MCHC 34.4 09/08/17 0120: Troponin I 0.02 09/07/17 1857: Troponin I 0.02 09/07/17 1436: Urine Color YEL, Urine Clarity CLEAR, Urine pH 6.0, Ur Specific [place] 1.025, Urine Protein 30 H, Urine Ketones TRACE H, Urine Nitrite NEG, Urine Bilirubin NEG, Urine Urobilinogen 1.0, Ur Leukocyte Esterase NEG, Ur Microscopic SEDIMENT EXAMINED, Urine RBC RARE, Urine WBC RARE, Ur Epithelial Cells RARE, Urine Hemoglobin NEG, Urine Glucose NEG 09/07/17 1318: Anion Gap 14, Estimated GFR > 60, BUN/Creatinine Ratio 21.1, Glucose 110 H, Calcium 8.9, Total Bilirubin 0.6, AST 24, ALT 19 L, Alkaline Phosphatase 145 H , Troponin I 0.01, Total Protein 6.2 L, Albumin 3.4 L, Globulin 2.8, Albumin/ Globulin Ratio 1.2, Vitamin B12 444, Folate 5.7, PT 13.7 H, INR 1.31 H, CBC w Diff NO MAN DIFF REQ, RBC 3.23 L, MCV 95.4 H, MCH 33.0 H, RDW 14.6 H, MPV 7.4, Gran % 67.0, Lymphocytes % 21.1, Monocytes % 7.6, Eosinophils % 3.9, Basophils % 0.4, Absolute Granulocytes 5.2, Absolute Lymphocytes 1.7, Absolute Monocytes 0.6, Absolute Eosinophils 0.3, Absolute Basophils 0, PUBS MCHC 34.6 (Fortino ROLON,[place]) Departure Departure Disposition: STILL A PATIENT Condition: Stable Clinical Impression Primary Impression: TIA (transient ischemic attack) Referrals: Nicolás ROLON,Yuniel Kauffman (PCP/Family) Departure Forms: Customer Survey General Discharge Information Observation Note Physician Advisor Notified: KAREN GALLAGHER DO Rationale for Observation: My rational for observation is as follows [PATIENT SEEN BY DR WEI IN THE ED, REQUESTING OBSERVATION FOR PATIENT, FEELS WOULD BENEFIT FROM INPATIENT TESTING]. Resident Co-Sign Statement Statement: ED Attending supervision documentation- [X] I saw and evaluated the patient. I have also reviewed all the pertinent lab results and diagnostic results. I agree with the findings and the plan of care as documented in the Resident's documentation. [X] I have reviewed the ED Record and agree with the Resident's documentation. [] Additions or exceptions (if any) to the Resident's note and plan are summarized below: [] (Michael ROLON,Chery) Admission Note Documentation of Exam: Documentation of any treatments & extenuating circumstances including Concerns Regarding Discharge (functional status, medication knowledge or non-compliance, living conditions, etc.) that warrant an admission rather than observation: ] Observation Note Spoke With: Terell Crews MD Physician Advisor Notified: KAREN GALLAGHER DO Place Patient In: Non-ED OBS Care Area Rationale for Observation: My rational for observation is as follows [the patient presented with symptoms in line with transient ischemic attack/possible seizure. He will likely benefit from 23 hour observation for any recurrence of strokelike symptoms or seizures, requiring EEG and possible MRI of brain]. (Fortino ROLON,Shane)
--- NOTE | 2017-09-07 13:21 | CT SCAN REPORT ---
EXAMINATION: CT HEAD WITHOUT CONTRAST CLINICAL INFORMATION: Right-sided weakness. Question CVA. COMPARISON: Brain MRI 10/22/2016. TECHNIQUE: Contiguous axial imaging was performed from the skull base to vertex without intravenous administration of contrast. DLP: 620 mGy-cm. FINDINGS: There is no intracranial hemorrhage, large new infarction, or mass lesion. There is no extra-axial collection. There is moderate to severe confluent patchy hypoattenuation in the bilateral cerebral white matter, which is nonspecific but likely reflects small vessel disease. There are old lacunar infarcts within the bilateral basal ganglia and cerebellar hemispheres. The paranasal sinuses are clear. The mastoids and middle ear cavities are clear. There are atherosclerotic calcification of the carotid siphons and vertebral arteries. IMPRESSION: 1. No acute intracranial abnormality identified. Specifically there is no evidence of large territory infarct or hemorrhage. 2. Extensive small vessel ischemic changes. In this setting a new superimposed lacunar infarction is difficult to exclude. 3. Mild diffuse brain parenchymal volume loss. This critical result was discussed with Chery Rodriguez on 09/07/2017 1:17 PM, and it was ascertained that the content and urgency of the report was understood at the time of direct communication.
[2017-09-07 13:24] LABS: ABSOLUTE BASOPHIL COUNT 0 /CUMM (0.0-0.2); ABSOLUTE EOSINOPHIL COUNT 0.3 /CUMM (0.0-0.7); ABSOLUTE GRANULOCYTE CT 5.2 /CUMM (1.4-6.5); ABSOLUTE LYMPH COUNT 1.7 /CUMM (1.2-3.4); ABSOLUTE MONOCYTE COUNT 0.6 /CUMM (0.10-0.60); BASOPHIL % 0.4 % (0.0-2.0); EOSINOPHIL % 3.9 % (0-5); HEMATOCRIT 30.9 % (42-52); MEAN CORPUSCULAR HGB CONC 34.6 G/DL (33.0-37.0); MEAN CORPUSCULAR VOLUME 95.4 FL (80.0-94.0); MEAN PLATELET VOLUME 7.4 FL (7.4-10.4); PLATELET COUNT 218 /CUMM (130-400); RBC DISTRIBUTION WIDTH 14.6 % (11.5-14.5); RED BLOOD CELL CT 3.23 /CUMM (4.70-6.10); WHITE BLOOD CELL COUNT 7.8 /CUMM (4.8-10.8)
[2017-09-07 13:30] LABS: PT 13.7 SEC (9.4-12.5)
--- NOTE | 2017-09-07 13:43 | Cons- Neurology ---
General Information and HPI Consulting Request Date of Consult: 09/07/17 Requested By: Dr. Rodriguez History of Present Illness: 87-year-old male brought to hospital today after being found by his with difficulty speaking and right-sided weakness. He has been seen in this institution in the past for transient speech disturbance. Differential diagnoses has rested between recurrent TIA and partial seizure. He has had a prior cerebral hemorrhage after which she has had mildly impaired speech and imbalance for which she uses a walker. He is maintained chronically on Plavix and Keppra 500 mg twice daily. Per his , he was recently seen [facility] where they believe that his recurrent episodes of speech disturbance one more in keeping with seizure as opposed to recurrent TIA. He has had EEGs in the past; these results are currently unavailable for my review. The patient's deficit has largely resolved soon after arriving in the emergency department. CAT scan of the brain showed no acute abnormalities. There was evidence of cerebral atrophy and old lacunar infarcts. No large vessel territorial infarcts or hemorrhages are identified Allergies/Medications Allergies: Coded Allergies: Iodinated Contrast- Oral and IV Dye (IODINATED CONTRAST MEDIA - IV DYE) (SARA, RAVEN 05/11/16) Home Med List: Aspirin (Ecotrin*) 81 MG TABLET.DR 1 TAB PO DAILY HEART/BLOOD (Reported) Atorvastatin Calcium 80 MG TABLET 1 TAB PO 1700 TIA Clopidogrel Bisulfate (Plavix) 75 MG TABLET 1 MG PO DAILY TIA Insulin Glargine,Hum.rec.anlog (Lantus Solostar) 100 UNIT/ML (3 ML) INSULN.PEN 40 UNIT SC QPM DIABETES (Reported) Labetalol HCl 300 MG TABLET 1 TAB PO BID BP (Reported) Lisinopril 10 MG TABLET 1 TAB PO DAILY BLOOD PRESSURE Pravastatin Sodium 40 MG TABLET 1 TAB PO QPM CHOLESTEROL (Reported) Review of Systems Review of Systems: Negative for recent fever, chills, rash, diplopia, dysphagia, chest pain, cough, vomiting, vertigo, joint inflammation or abnormal bleeding. He has a mild speech disturbance and imbalance which has been present for greater than one year. 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 spouse Services at Home: None Primary Language: Occitan ETOH Use: denies use Illicit Drug Use: denies illicit drug use Living Will? yes Power of Dynamite Shooter/HCP? yes Name of POA/HCP: Halley Garay Functional Ability ADLs Independent: dressing, eating, toileting, bathing. Ambulation: cane IADLs Independent: shopping, housework, finances, food prep, telephone, transportation , medication admin. Exam & Diagnostic Data Vital Signs and I&O Vital Signs Date Time Temp Pulse Resp B/P B/P Pulse O2 O2 Flow FiO2 Mean Ox Delivery Rate 09/07 1328 94 Room Air 09/07 1325 97.9 66 18 139/63 99 Room Air Intake & Output 09/07 1600 09/07 0800 09/07 0000 Intake Total 0 Output Total Balance 0 Intake, Oral 0 Patient 153 lb Weight Weight Reported by Patient Measurement Method Elderly white male in no acute distress. He was awake, alert and cooperative. He was oriented to person and place. There was no anomia. Speech at times was mildly hypophonic but fluent. The head was normocephalic and atraumatic. Pupils were equal. Extraocular movements were full. Face was symmetric. Tongue was midline. Motor examination showed no drift of the upper extremities. There was no gross lateralizing weakness. Deep tendon reflexes were symmetric. Plantar responses were flexor. There was no ataxia on [id number] testing. Gait was not evaluated. Assessment/Plan Assessment: Mr. Garay is an elderly male who presents with recurrent speech disturbance and transient right-sided weakness. A stroke alert was called however as the patient was rapidly improving, TPA was not considered. Once again, it is unclear as to whether this recurrent, seemingly stereotyped event is due to TIA or partial seizure. We also favor the former, as has been endorsed by the treating physicians at the [facility]. Recommendations: He should be admitted for brief observation. A repeat EEG should be obtained. I would increase his Keppra to 1 g twice daily. Would continue Plavix. Neurology will be able to follow the patient as needed. Consult Acknowledgment - Thank you for your consult request.
--- NOTE | 2017-09-07 14:21 | RADIOLOGY REPORT ---
EXAMINATION: CHEST 1 VIEW CLINICAL INFORMATION: CVA. Altered mental status. COMPARISON: 10/19/2016. TECHNIQUE: An AP view of the chest is provided. FINDINGS: The cardiac silhouette is not enlarged. The mediastinal and hilar contours are unremarkable. There are neither pleural effusions nor pneumothoraces. There are no consolidations. The osseous structures are unremarkable. IMPRESSION: No evidence for acute disease.
--- NOTE | 2017-09-07 15:02 | History & Physical ---
Carol ROLON,Florentin 09/07/17 1501: General Information and HPI History of Present Illness: Mr. 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 The patient and his report that at 10 AM this morning he was feeling fine. His went out to do some errands. The patient then was watching TV and started to feel dizzy. He then fell on the couch but denies losing consciousness or striking his head. This fall was unwitnessed. The patient then called his . His recalls the call and that he was mumbling. She could not understand him. That was around 11:50 AM. She went home and evaluated him and activated EMS. While in the emergency room, the symptoms resolved. At this time, the believes that his speech is at baseline. No nausea, vomiting, shortness of breath, chest pain, focal weakness, sick contacts, recent illness, or dysuria. Allergies/Medications Allergies: Coded Allergies: Iodinated Contrast- Oral and IV Dye (IODINATED CONTRAST MEDIA - IV DYE) (SOB, HIVMARIE 05/11/16) Home Med list Aspirin (Ecotrin*) 81 MG TABLET.DR 1 TAB PO DAILY HEART/BLOOD (Reported) Atorvastatin Calcium 80 MG TABLET 1 TAB PO 1700 TIA Clopidogrel Bisulfate (Plavix) 75 MG TABLET 1 MG PO DAILY TIA Insulin Glargine,Hum.rec.anlog (Lantus Solostar) 100 UNIT/ML (3 ML) INSULN.PEN 40 UNIT SC QPM DIABETES (Reported) Labetalol HCl 300 MG TABLET 1 TAB PO BID BP (Reported) Lisinopril 10 MG TABLET 1 TAB PO DAILY BLOOD PRESSURE Pravastatin Sodium 40 MG TABLET 1 TAB PO QPM CHOLESTEROL (Reported) Past History Travel History Traveled to [place] past 21 day No Medical History Neurological: CVA, seizure, TIA EENT: glaucoma Cardiovascular: aortic stenosis, hypertension, hyperlipidemia, AORTIC STENOSIS Respiratory: NONE Gastrointestinal: HERNIA Hepatic: NONE Renal: KIDNEY STONES Musculoskeletal: ARTHRITIS IN KNEES Psychiatric: NONE Endocrine: diabetes Blood Disorders: NONE Cancer(s): NONE PHOTOGRAPHIC ENGINEER/Reproductive: NONE History of MRSA: No History of VRE: No History of CDIFF: No Surgical History Surgical History: hernia repair Past Family/Social History Family History Relations & Conditions if any FATHER FH: cancer FH: heart disease Psychosocial History Who Do You Live With? spouse Services at Home: None Primary Language: Pakistani ETOH Use: denies use Illicit Drug Use: denies illicit drug use Living Will? yes Power of Die Out Worker/HCP? yes Name of POA/HCP: Halley Jarrod Functional Ability ADLs Independent: dressing, eating, toileting, bathing. Ambulation: cane IADLs Independent: shopping, housework, finances, food prep, telephone, transportation , medication admin. Review of Systems Review of Systems Constitutional: Reports: no symptoms. EENTM: Reports: no symptoms. Cardiovascular: Reports: no symptoms. Respiratory: Reports: no symptoms. GI: Reports: no symptoms. Genitourinary: Reports: no symptoms. Musculoskeletal: Reports: no symptoms. Skin: Reports: no symptoms. Neurological/Psychological: Reports: see HPI. Hematologic/Endocrine: Reports: no symptoms. Immunologic/Allergic: Reports: no symptoms. All Other Systems: Reviewed and Negative Exam & Diagnostic Data Last 24 Hrs of Vital Signs/I&O Vital Signs Date Time Temp Pulse Resp B/P B/P Pulse O2 O2 Flow FiO2 Mean Ox Delivery Rate 09/07 1536 97.7 61 18 160/89 94 Room Air 09/07 1527 97.7 61 18 160/89 94 Room Air 09/07 1328 94 Room Air 09/07 1325 97.9 66 18 139/63 99 Room Air Intake & Output 09/07 1600 09/07 0800 09/07 0000 Intake Total 0 Output Total Balance 0 Intake, Oral 0 Patient 153 lb Weight Weight Reported by Patient Measurement Method Physical Exam General Appearance Alert, Oriented X3, Cooperative, No Acute Distress Skin No Rashes, No Breakdown, No Significant Lesion HEENT Atraumatic, PERRLA, left ptosis Neck Supple, Right mild bruit Cardiovascular Regular Rate, Normal S1, Normal S2, systolic murm,ur Lungs Clear to Auscultation, Normal Air Movement Abdomen Normal Bowel Sounds, Soft, No Tenderness Neurological Normal Speech, Strength at 5/5 X4 Ext, Normal Tone, Sensation Intact, Cranial Nerves 3-12 NL, Reflexes 2+ Extremities No Edema, Normal Pulses, No Tenderness/Swelling Last 24 Hrs of Labs/Rasta: Laboratory Tests 09/07/17 1436: Urine Color YEL, Urine Clarity CLEAR, Urine pH 6.0, Ur Specific [place] 1.025, Urine Protein 30 H, Urine Ketones TRACE H, Urine Nitrite NEG, Urine Bilirubin NEG, Urine Urobilinogen 1.0, Ur Leukocyte Esterase NEG, Ur Microscopic SEDIMENT EXAMINED, Urine RBC RARE, Urine WBC RARE, Ur Epithelial Cells RARE, Urine Hemoglobin NEG, Urine Glucose NEG 09/07/17 1318: Anion Gap 14, Estimated GFR > 60, BUN/Creatinine Ratio 21.1, Glucose 110 H, Calcium 8.9, Total Bilirubin 0.6, AST 24, ALT 19 L, Alkaline Phosphatase 145 H , Troponin I 0.01, Total Protein 6.2 L, Albumin 3.4 L, Globulin 2.8, Albumin/ Globulin Ratio 1.2, PT 13.7 H, INR 1.31 H, CBC w Diff NO MAN DIFF REQ, RBC 3.23 L, MCV 95.4 H, MCH 33.0 H, RDW 14.6 H, MPV 7.4, Gran % 67.0, Lymphocytes % 21.1, Monocytes % 7.6, Eosinophils % 3.9, Basophils % 0.4, Absolute Granulocytes 5.2, Absolute Lymphocytes 1.7, Absolute Monocytes 0.6, Absolute Eosinophils 0.3, Absolute Basophils 0, PUBS MCHC 34.6 Assessment/Plan Assessment: Mr. 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 On presentation, vital signs were T 97.9, HR 66, RR 18, BP 139/63, saturating 90 % on room air. Laboratories were significant for white blood cell count 7.8, hemoglobin 10.7, MCV 95.4, normal BEP, calcium 8.9, alkaline phosphatase 145, troponin 0.01, INR 1.31. CT of the head showed no acute abnormality but did show extensive small vessel disease changes and could not exclude lacunar infarction. He was treated with levetiracetam in the emergency room. He will be placed in observation on telemetry and treated for the following problem: 1. Transient ischemic attack versus partial seizure 2. Macrocytic anemia #Transient ischemic attack versus partial seizure: The patient has many risk factors for transient ischemic attack and cerebrovascular accident given his previous CVAs and other comorbidities. However, the story could also support a seizure given that he lost his bowels though he does remember the entire episode. It is unclear at this time. -Appreciate neurology recommendations -EEG -Levetiracetam 1 g twice a day -Continue clopidogrel -EKG and troponins 3 -Continue statin -Orthostatic vitals #Macrocytic anemia: A symptomatically. -Iron studies, vitamin B12, folate #Chronic medical problems: -Continue home meds DVT prophylaxis with heparin Heart healthy diet DNR/DNI As Ranked By This Provider Problem List: 1. Transient ischemic attack Core Measures/Misc (05/17) Acute Coronary Syndrome ACS Diagnosis: No Congestive Heart Failure Congestive Heart Failure Diagnosis No Cerebrovascular Accident CVA/TIA Diagnosis: Yes NIH Stroke Scale: Total 1 Date Last Known Well: 09/07/17 Reason tPA not ordered Medical Contraindication Swallow Evaluation Pass Current/Past Hx AFib/AFlutter No No Antithrombotic d/t Medical Contraindication No Anticoagulant d/t Medical Contraindication VTE (View Protocol) VTE Risk Factors Age>40 No Mechanical VTE Prophylaxis d/t N/A MechProphylax Ordered No VTE Pharm Prophylaxis d/t NA PharmProphylax ordered Sepsis (View protocol) Sepsis Present: No Pablito Mackenzie 09/07/17 1736: Attending MD Review Statement Attending Statement Attending MD Statement: discuss w/resident/PA/POUNCING MACHINE OPERATOR, agreed w/resident/PA/POUNCING MACHINE OPERATOR, discussed with family, reviewed EMR data (avail), discussed with nursing Attending Assessment/Plan: Pt being placed in observation. 87 yr old male with pmh of cva/tia's with residual dysarthria , seizure disorder on keppra, severe Aortic stenosis, HTN, HLD was admitted with numbness of forehead and episode of fall in the couch where he was sitting watch tv and bowel incontinence and incoherent speech. Pt will be observed on telemetry, will do neuro checks. Neurology saw and recommended getting EEG and increasing keppra dose. Will f/u on EEG results and will see how he does. d/w pts in ER the care plan. Simone Bone 09/07/17 1751: Resident Review Statement Resident Statement: examined this patient, discussed with logistics intern, agreed with logistics intern, discussed with family, reviewed EMR data (avail), discussed with nursing , discussed with case mgmt, reviewed images, amended to note Other Findings: This is a 87-year-old male with past medical history significant for type 2 diabetes, hypertension, hyperlipidemia, severe aortic stenosis, history of intracranial bleed 2013, right CVA 2014, history of seizures on Keppra, kidney stones, recurrent TIA in 2015 and 2016 was brought in by his with difficulty speaking and numbness of face. The patient and his report that at 10 AM this morning he was feeling fine. He started to feel dizzy. He then fell on the couch but denies losing consciousness or striking his head. This fall was unwitnessed. Patient reported bowel incontinence. The patient then called his . His ported that he was mumbling. She went home and evaluated him and activated EMS. He was at [facility] in the past for transient speech disturbance. Differential diagnoses were in between recurrent TIA and partial seizure. He has had a prior cerebral hemorrhage after which she has had mildly impaired speech and imbalance for which she uses a walker. He is maintained chronically on Plavix and Keppra 500 mg twice daily. He has had EEGs in the past. While in the emergency room, the symptoms resolved. At this time, the believes that his speech is at baseline. Review of systems was negative except for as above. Denied smoking, alcohol, illicit drug abuse. Compliant with medications. Uses walker for ambulation. ---- vital signs were T 97.9, HR 66, RR 18, BP 139/63, saturating 90% on room air. Laboratories were significant for white blood cell count 7.8, hemoglobin 10.7, MCV 95.4, normal BEP, calcium 8.9, alkaline phosphatase 145, troponin 0.01, INR 1.31. CT of the head showed no acute abnormality but did show extensive small vessel disease changes and could not exclude lacunar infarction. He was treated with levetiracetam in the emergency room. He will be placed in observation on telemetry and treated for the following problem: - TIA versus seizure Given his extensive history of strokes, recurrent TIA, seizures he will be placed in observation in the telemetry floor for further monitoring. Possible differentials transient ischemic attack with slurred speech and numbness versus seizures given his bowel incontinence and dizziness before the event. * Neurologist was consulted. * Will get EEG * Keppra dose was increased to 1 gm twice daily from 500 mg twice daily. * Not on aspirin as he failed on Aggrenox * Continue high-dose Lipitor 80 mg daily * Continue Plavix * Continue blood pressure medications lisinopril 10 daily and labetalol 300 twice a day * Bedside swallow was done, passed. * Will get formal swallow evaluation * PT eval * OT eval * Neuro checks every 2 hours * Continuous telemetry monitoring * Orthostatic vitals * Serial troponin and EKG * EEG follow-up * Will hold of MRI brain for now given his recurrent strokes and the management is going to be the same. Neuro didn't recommend to get any MRI for now. #Macrocytic anemia F/U Iron studies, vitamin B12, folate Hypertension continue lisinopril and labetalol Diabetes hold metformin, continue Lantus 35 minutes daily, Accu-Cheks, placed on insulin sliding scale. Hyperlipidemia continue Lipitor 80 daily Seizures continue 1GMtwice daily DVT prophylaxis subcutaneous Lovenox DNR/DNI Heart healthy diet Pain pathway is able
[2017-09-07 15:36] VITALS: BP 160/89
[2017-09-07 18:23] VITALS: BP 170/81
--- NOTE | 2017-09-08 08:06 | PN- Housestaff ---
See Addendum Subjective Follow-up For: TIA vs Seizure Subjective: No overnight events. Patient feels good this morning, no further TIA symptoms. No CP or SOB. Review of Systems Constitutional: Reports: no symptoms. EENTM: Reports: no symptoms. Cardiovascular: Reports: no symptoms. Respiratory: Reports: no symptoms. Gastrointestinal: Reports: no symptoms. Genitourinary: Reports: no symptoms. Musculoskeletal: Reports: no symptoms. Skin: Reports: no symptoms. Neurological/Psychological: Reports: no symptoms. Hematologic/Endocrine: Reports: no symptoms. Immunologic/Allergic: Reports: no symptoms. Objective Last 24 Hrs of Vital Signs/I&O Vital Signs Date Time Temp Pulse Resp B/P B/P Pulse O2 O2 Flow FiO2 Mean Ox Delivery Rate 09/08 611 98.6 67 20 120/57 97 Room Air 09/07 2226 98.1 76 18 123/98 95 Room Air 09/07 1823 97.8 73 18 170/81 97 Room Air 09/07 1823 97.8 73 18 170/81 97 Room Air 09/07 1822 97.8 73 18 170/81 97 Room Air 09/07 1536 97.7 61 18 160/89 94 Room Air 09/07 1527 97.7 61 18 160/89 94 Room Air 09/07 1328 94 Room Air 09/07 1325 97.9 66 18 139/63 99 Room Air Intake & Output 09/08 1600 09/08 0800 09/08 0000 Intake Total 240 Output Total Balance 240 Intake, Oral 240 Patient 153 lb Weight Physical Exam General Appearance: Alert, Oriented X3, Cooperative, No Acute Distress Cardiovascular: Regular Rate, Normal S1, Normal S2 Lungs: Clear to Auscultation Abdomen: Soft, No Tenderness Neurological: stable Extremities: No Edema, Normal Pulses, No Tenderness/Swelling Current Medications: Current Medications Sig/Maikol Start time Last Medication Dose Route Stop Time Status Admin Acetaminophen 650 MG Q6P PRN 09/07 1530 AC PO Acetaminophen 1,000 MG Q6P PRN 09/07 1530 AC IV Atorvastatin Calcium 80 MG 1700 09/07 1700 AC 09/07 PO 1821 Clopidogrel Bisulfate 75 MG DAILY 09/08 1000 AC PO Enoxaparin Sodium 40 MG DAILY 09/08 1000 AC SC Insulin Aspart 0 TIDAC 09/07 1700 AC 09/07 SC 1926 Insulin Detemir 35 UNITS DAILY 09/08 1000 AC SC Labetalol HCl 300 MG BID 09/08 1000 AC PO Levetiracetam 1,000 MG BID 09/07 2200 AC 09/07 PO 2226 Levetiracetam 500 MG ONCE ONE 09/07 1330 DC 09/07 N/A 1 UNIT IV 09/07 1344 1354 Lisinopril 10 MG DAILY 09/08 1000 AC PO Last 24 Hrs of Lab/Rasta Results Last 24 Hrs of Labs/Mics: Laboratory Tests 09/08/17 0610: Anion Gap 12, Estimated GFR > 60, BUN/Creatinine Ratio 22.9, CBC w Diff Pending, WBC Pending, RBC Pending, Hgb Pending, Hct Pending, MCV Pending, MCH Pending, RDW Pending, Plt Count Pending, MPV Pending, PUBS MCHC Pending 09/08/17 0120: Troponin I 0.02 09/07/17 1857: Troponin I 0.02 09/07/17 1436: Urine Color YEL, Urine Clarity CLEAR, Urine pH 6.0, Ur Specific [place] 1.025, Urine Protein 30 H, Urine Ketones TRACE H, Urine Nitrite NEG, Urine Bilirubin NEG, Urine Urobilinogen 1.0, Ur Leukocyte Esterase NEG, Ur Microscopic SEDIMENT EXAMINED, Urine RBC RARE, Urine WBC RARE, Ur Epithelial Cells RARE, Urine Hemoglobin NEG, Urine Glucose NEG 09/07/17 1318: Anion Gap 14, Estimated GFR > 60, BUN/Creatinine Ratio 21.1, Glucose 110 H, Calcium 8.9, Total Bilirubin 0.6, AST 24, ALT 19 L, Alkaline Phosphatase 145 H , Troponin I 0.01, Total Protein 6.2 L, Albumin 3.4 L, Globulin 2.8, Albumin/ Globulin Ratio 1.2, Vitamin B12 444, Folate 5.7, PT 13.7 H, INR 1.31 H, CBC w Diff NO MAN DIFF REQ, RBC 3.23 L, MCV 95.4 H, MCH 33.0 H, RDW 14.6 H, MPV 7.4, Gran % 67.0, Lymphocytes % 21.1, Monocytes % 7.6, Eosinophils % 3.9, Basophils % 0.4, Absolute Granulocytes 5.2, Absolute Lymphocytes 1.7, Absolute Monocytes 0.6, Absolute Eosinophils 0.3, Absolute Basophils 0, PUBS MCHC 34.6 Assessment/Plan Assessment: Mr. 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 Problem list: 1. Transient ischemic attack versus partial seizure 2. Macrocytic anemia #Transient ischemic attack versus partial seizure: The patient has many risk factors for transient ischemic attack and cerebrovascular accident given his previous CVAs and other comorbidities. However, the story could also support a seizure given that he lost his bowels though he does remember the entire episode. It is unclear at this time. EKG and troponins 3 were negative. He has had no further episodes. -Appreciate neurology recommendations -EEG -Levetiracetam 1 g twice a day -Continue clopidogrel -Continue statin #Macrocytic anemia: Asymptomatic. Folate/b12 normal. -CTM #Chronic medical problems: -Continue home lisinopril, labetalol -Old oral hypoglycemics -Detemir plus insulin sliding scale DVT prophylaxis with enoxaparin Heart healthy diet DNR/DNI Problem List: 1. Transient ischemic attack Pain Ratin Pain Location: no pain Pain Goal: Remain pain free Pain Plan: see a/p Tomorrow's Labs & Rationales: none
[2017-09-08 08:08] LABS: ABSOLUTE BASOPHIL COUNT 0 /CUMM (0.0-0.2); ABSOLUTE EOSINOPHIL COUNT 0.4 /CUMM (0.0-0.7); ABSOLUTE GRANULOCYTE CT 4.3 /CUMM (1.4-6.5); ABSOLUTE LYMPH COUNT 1.9 /CUMM (1.2-3.4); ABSOLUTE MONOCYTE COUNT 0.7 /CUMM (0.10-0.60); BASOPHIL % 0.5 % (0.0-2.0); EOSINOPHIL % 5.1 % (0-5); GRANULOCYTE % 59.4 % (42.2-75.2); HEMATOCRIT 29.8 % (42-52); MEAN CORPUSCULAR HGB CONC 34.4 G/DL (33.0-37.0); MEAN CORPUSCULAR VOLUME 95.8 FL (80.0-94.0); MEAN PLATELET VOLUME 8.1 FL (7.4-10.4); PLATELET COUNT 200 /CUMM (130-400); RBC DISTRIBUTION WIDTH 15.1 % (11.5-14.5); RED BLOOD CELL CT 3.11 /CUMM (4.70-6.10); WHITE BLOOD CELL COUNT 7.2 /CUMM (4.8-10.8)
[2017-09-08] MEDS ORDERED: KEPPRA500 M1 PO ×2 (13:56→14:24)
--- NOTE | 2017-09-08 13:57 | Patient Discharge Instructions ---
Discharge Instructions General Discharge Information You were seen/treated for: TIA vs seizure Watch for these problems: Focal weakness, numbness, fever, shortness of breath, chest pain Special Instructions: Please take all medications as directed. Please follow up with your primary care doctor. Diet Continue normal diet: Yes Activity Full Activity/No Limits: Yes Acute Coronary Syndrome Inclusion Criteria At DC or during hospital stay patient has or had the following: ACS DIAGNOSIS No Discharge Core Measures Meds if any: Prescribed or Continued at Discharge Meds if any: NOT Prescribed or Continued at Discharge Congestive Heart Failure Inclusion Criteria At DC or during hospital stay patient has or had the following: CHF DIAGNOSIS No Discharge Core Measures Meds if any: Prescribed or Continued at Discharge Meds if any: NOT Prescribed or Continued at Discharge Cerebrovascular accident Inclusion Criteria At DC or during hospital stay patient has or had the following: CVA/TIA Diagnosis Yes Discharge Core Measures Meds if any: Prescribed or Continued at Discharge Meds if any: NOT Prescribed or Continued at Discharge Venous thromboembolism Inclusion Criteria VTE Diagnosis No VTE Type NONE VTE Confirmed by (Test) NONE Discharge Core Measures - Per Current guidelines, there needs to be overlap - treatment for the first 5 days of Warfarin therapy. - If discharged on Warfarin prior to 5 days of - overlap therapy, the patient will need to be - assessed for post discharge needs including - *Post discharge parental anticoagulation - *Warfarin and/or parental anticoagulation education - *Follow up date to check INR post discharge At least 5 days overlap therapy as Inpatient No Meds if any: Prescribed or Continued at Discharge Note: Overlap Therapy is Warfarin and Anticoagulant Meds if any: NOT Prescribed or Continued at Discharge
[2017-09-08 14:55] VITALS: BP 142/72
--- NOTE | 2017-09-08 15:57 | Cons- Cardiology ---
General Information and HPI Consulting Request Date of Consult: 09/08/17 Requested By: Gurdeep ROLON,Pablito Meza History of Present Illness: Mr. Garay is an 87 year old male with history of hypertension, dyslipidemia, diabetes mellitus and TIA. He was last admitted for a TIA. At that time, he was noted to have slurred speech with some weakness in his hand that resulted in him dropping items. Cardiac workup at the time disclosed evidence of moderate to severe aortic stenosis. He also had multiple episodes of lightheadedness and therefore his lisinoprilHCT was stopped. This patient was brought to the ER for difficulty speaking and right sided weakness. The differential diagnosis rested between a recurrent TIA and partial seizure. He has had a prior cerebral hemorrhage after which she has had mildly impaired speech and imbalance for which she uses a walker. He is maintained chronically on Plavix and Keppra 500 mg twice daily. Per his , he was recently seen [facility] where they believe that his recurrent episodes of speech disturbance one more in keeping with seizure as opposed to recurrent TIA. He has had EEGs in the past; these results are currently unavailable for my review. The patient's deficit has largely resolved soon after arriving in the emergency department. CAT scan of the brain showed no acute abnormalities. There was evidence of cerebral atrophy and old lacunar infarcts. No large vessel territorial infarcts or hemorrhages are identified He denies chest discomfort, shortness of breath, lightheadedness or palpitations at his current level of activity. At baseline he walks slowly. Higher levels of activity will get him winded. It should be noted that this patient has severe aortic stenosis. It should be noted that this patient had a left eye procedure for glaucoma and has some visual deficit due to his eye not opening fully. He is s/p a left parietal lobe hemorrhage and was therefore taken off Aggrenox. At that time he was found to walk with an off-balanced gait and he had slurred speech. To review this patient's past history, after his previous TIA, a carotid ultrasound was obtained which showed a 50% to 79% decrease in diameter of the distal right internal carotid artery. 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 In addition, an echocardiogram was obtained which showed an overall normal EF of 65% with mild septal hypertrophy. There was also evidence of impaired LV relaxation. In terms of cardiac valves, the patient has trace MR, trace TR, and mild pulmonic regurgitation. More importantly, there is a severely thickened and sclerotic aortic valve with decreased leaflet excursion consistent with moderate to severe aortic stenosis accompanied by mild to moderate aortic regurgitation. Allergies/Medications Allergies: Coded Allergies: Iodinated Contrast- Oral and IV Dye (IODINATED CONTRAST MEDIA - IV DYE) (SOB, HIVES 05/11/16) Home Med List: Aspirin (Ecotrin*) 81 MG TABLET.DR 1 TAB PO DAILY HEART/BLOOD (Reported) Atorvastatin Calcium 80 MG TABLET 1 TAB PO 1700 TIA Clopidogrel Bisulfate (Plavix) 75 MG TABLET 1 MG PO DAILY TIA Insulin Glargine,Hum.rec.anlog (Lantus Solostar) 100 UNIT/ML (3 ML) INSULN.PEN 40 UNIT SC QPM DIABETES (Reported) Labetalol HCl 300 MG TABLET 1 TAB PO BID BP (Reported) Levetiracetam (Keppra) 500 MG TABLET 1,000 MG PO BID Seizure . Lisinopril 10 MG TABLET 1 TAB PO DAILY BLOOD PRESSURE Pravastatin Sodium 40 MG TABLET 1 TAB PO QPM CHOLESTEROL (Reported) Review of Systems Review of Systems: A review of systems is unremarkable. 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 spouse Services at Home: None Primary Language: Czech Smoking Status: Former Smoker ETOH Use: denies use Illicit Drug Use: denies illicit drug use Living Will? yes Power of Machine I Trimmer/HCP? yes Name of POA/HCP: Halley Garay Functional Ability ADLs Independent: dressing, eating, toileting, bathing. Ambulation: cane IADLs Independent: shopping, housework, finances, food prep, telephone, transportation , medication admin. Exam & Diagnostic Data Vital Signs and I&O Vital Signs Date Time Temp Pulse Resp B/P B/P Pulse O2 O2 Flow FiO2 Mean Ox Delivery Rate 09/08 1455 82 18 142/72 99 Room Air 09/08 1036 96.9 84 18 158/71 09/08 1036 96.9 61 18 158/71 09/08 0852 96.9 84 18 158/71 94 Room Air 09/08 0612 98.6 67 20 120/57 97 Room Air 09/07 2226 98.1 76 18 123/98 95 Room Air 09/07 1823 97.8 73 18 170/81 97 Room Air 09/07 1823 97.8 73 18 170/81 97 Room Air 09/07 1822 97.8 73 18 170/81 97 Room Air Intake & Output 09/08 1600 09/08 0800 09/08 0000 09/07 1600 09/07 0000 Intake Total 240 0 Output Total Balance 240 0 Intake, Oral 240 0 Patient 153 lb 153 lb Weight Weight Reported by Patient Measurement Method Physical Exam: General: WD/WN male in NAD; alert and oriented x 3 HEENT: NC/AT, PERRL, EOMI, left eyelid drooping Neck: No JVD, bilateral carotid bruits L>R Heart: RRR with 3/6 systolic murmur at the RUSB and 2/6 systolic murmur at the LLSB Lungs: clear bilaterally Abdomen: soft, NT, +ve bowel sounds Extremities: no edema Neuro: muscle strength 5/5 throughout, mild left facial droop Assessment/Plan Assessment/Plan * This patient has been experiencing multiple and fairly frequent TIA's/CVA's. There have not been any documented dysrhythmia's that correlate with these events but it is reasonable to monitor this patient on telemetry and to obtain a repeat echocardiogram to ensure that there is no arrhythmia such as atrial fibrillation and to rule out intracardiac thrombus or poor LV function that would be the substrate for thrombus formation. * This patient has severe aortic stenosis which can cause decreased cerebral perfusion. In the absence of evidence for a TIA or seizure, I would consider as a cause of his symptoms. Repeat an echocardiogram. Consult Acknowledgment - Thank you for your consult request.
--- NOTE | 2017-09-08 16:58 | ELECTROENCEPHALOGRAM REPORT ---
Electroencephalogram Report Electroencephalogram Results Date of service: 09/07/17 Attending MD: Pablito Mackenzie MD Leather Flesher: Bri Poole EEG Number: [id number] Test Utilizes: 10-20 system, 21 lead 18 channel digital recording Pertinent Hx/Physical/Neuro Findings/Clin Diagnosis: Episode of slurred speech, TIA versus seizure Inpatient Medications: Current Medications Sig/Maikol Start time Last Medication Dose Route Stop Time Status Admin Acetaminophen 650 MG Q6P PRN 09/07 1530 DCD PO Acetaminophen 1,000 MG Q6P PRN 09/07 1530 DCD IV Atorvastatin Calcium 80 MG 1700 09/07 1700 DCD 09/07 PO 1821 Clopidogrel Bisulfate 75 MG DAILY 09/08 1000 DCD 09/08 PO 1036 Enoxaparin Sodium 40 MG DAILY 09/08 1000 DCD 09/08 SC 1036 Insulin Aspart 0 TIDAC 09/07 1700 DCD 09/08 SC 1126 Insulin Detemir 35 UNITS DAILY 09/08 1000 DCD 09/08 SC 1049 Labetalol HCl 300 MG BID 09/08 1000 DCD PO Levetiracetam 1,000 MG BID 09/07 2200 DCD 09/08 PO 1036 Lisinopril 10 MG DAILY 09/08 1000 DCD 09/08 PO 1036 Interpretation: The background is composed of somewhat irregular 8-9 Hz posterior alpha seen better over the right hemisphere than left with frontal low-voltage beta seen bilaterally. There are no clear epileptiform abnormalities. No sleep recorded. Hyperventilation deferred but photic was done and adds no additional information. Impression: Abnormal due to less well-formed baseline activity over the left hemisphere. No clear area of slowing or epileptiform activity detected
== END 2017-09-08 15:03 ==
LOC: ERH 13:02 → ERHI 14:37 → CANRESERV 09-08 12:37 → ENRESERV 09-08 12:37 → ERHI 09-08 14:34
PROVIDERS: Hospitalist; Internal Medicine
DX: G45.9 Transient cerebral ischemic attack, unspecified (principal); Z79.82 Long term (current) use of aspirin; Z79.4 Long term (current) use of insulin; E11.9 Type 2 diabetes mellitus without complications; I10 Essential (primary) hypertension; E78.5 Hyperlipidemia, unspecified; I35.0 Nonrheumatic aortic (valve) stenosis; Z86.73 Personal history of transient ischemic attack (TIA), and cerebral infarction without residual deficits; R56.9 Unspecified convulsions; Z87.442 Personal history of urinary calculi
CPT/HCPCS: 6090; 71045; 81001; 82436; 92610-GN; 93005; 93010; 95816; 96372; 96374; 97110-GP; 97116-GP; 97161-GP; 97166-GO; G0378; G8978-GP; G8979-GP; G8980-GP; G8990-GO; G8992-GO; G8996-GN; G8997-GN; G8998-GN; J1650; J1953

== ENCOUNTER 2017-11-24 13:46 | Emergency (ER) | payer OTHER ==
[~2017-11-24] VITALS: Ht 165.1 cm; Wt 63.5 kg
[~2017-11-24 13:46] MED LIST changes: +KEPPRA500 M1 PO
--- NOTE | 2017-11-24 14:24 | ED MVC/FALL/TRAUMA COMPLAINT ---
History of Present Illness General Chief Complaint: Fall Stated Complaint: MECHANICAL FALL BI LAT KNEE PAIN Source: patient, family Exam Limitations: no limitations Allergies Coded Allergies: Iodinated Contrast- Oral and IV Dye (IODINATED CONTRAST MEDIA - IV DYE) (RAVEN RUIZ 05/11/16) Reconcile Medications Aspirin (Ecotrin*) 81 MG TABLET.DR 1 TAB PO DAILY HEART/BLOOD (Reported) Atorvastatin Calcium 80 MG TABLET 1 TAB PO 1700 TIA Clopidogrel Bisulfate (Plavix) 75 MG TABLET 1 MG PO DAILY TIA Insulin Glargine,Hum.rec.anlog (Lantus Solostar) 100 UNIT/ML (3 ML) INSULN.PEN 40 UNIT SC QPM DIABETES (Reported) Labetalol HCl 300 MG TABLET 1 TAB PO BID BP (Reported) Levetiracetam (Keppra) 500 MG TABLET 1,000 MG PO BID Seizure . Lisinopril 10 MG TABLET 1 TAB PO DAILY BLOOD PRESSURE Pravastatin Sodium 40 MG TABLET 1 TAB PO QPM CHOLESTEROL (Reported) Triage Note: PT BIBA FROM HOME WITH C-COLLAR IN PLACE AFTER FALL. PT STATES HE WAS GETTING UP FROM THE COUCH WHEN HIS KNEES GAVE OUT AND HE FELL ONTO HIS KNEES. PT STATES HX OF ARTHRITIS IN KNEES. NO ABRASIONS OR SWELLING NOTED Triage Nurses Notes Reviewed? yes Onset: Abrupt Duration: hour(s): (2), better, continues in ED Timing: single episode today Severity: mild, moderate Severity Numbers: 7 Injuries/Fall Location: back, lower extremity Method of Injury: fall Loss of Consciousness: no loss of consciousness No Modifying Factors: none HPI: 87-year-old male past medical history of CVA, seizure disorder, osteoarthritis, diabetes presents for evaluation of her fall. Patient states that he was getting up after sitting on the couch when his knee suddenly gave out causing him to fall. He states that he fell and landed on his knees and lower back. He denies any head strike. He denies any dizziness lightheadedness chest pain or shortness of breath before the fall. He states in the past his knees have given out causing falls and is usually supposed to walk with a walker but he did not use the walker today. He reports pain in both knees and his lower back. The pain is worse with movement. No vomiting headaches and neck pain. No blood thinners. Mental status is at baseline according to family member who is at bedside. (Florentin Ferguson) Vital Signs & Intake/Output Vital Signs & Intake/Output ED Intake and Output 11/25 0000 11/24 1200 Intake Total 100 Output Total Balance 100 Intake, IV 100 Patient 140 lb Weight Weight Reported by Patient Measurement Method (Eladio Anthony DO) Past History Travel History Traveled to [place] past 21 day No Medical History Any Pertinent Medical History? 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 Yes (Florentin Ferguson) Review of Systems Review of Systems Constitutional: Reports: no symptoms. Eyes: Reports: no symptoms. Ears, Nose, Throat, Mouth: Reports: no symptoms. Respiratory: Reports: no symptoms. Cardiovascular: Reports: no symptoms. Gastrointestinal/Abdominal: Reports: no symptoms. Genitourinary: Reports: no symptoms. Musculoskeletal: Reports: see HPI, back pain, joint pain, muscle pain, muscle stiffness. Skin: Reports: no symptoms. Neurological/Psychological: Reports: no symptoms. All Other Systems: Reviewed and Negative (Florentin Ferguson) Physical Exam Physical Exam General Appearance: well developed/nourished, no apparent distress, alert, awake Head: atraumatic, normal appearance Eyes: Bilateral: normal appearance, PERRL, EOMI. Ears, Nose, Throat, Mouth: hearing grossly normal, moist mucous membrane Neck: normal inspection, supple, full range of motion, no midline tenderness Respiratory: normal breath sounds, chest non-tender, no respiratory distress, lungs clear Cardiovascular: regular rate/rhythm, normal peripheral pulses Peripheral Pulses: 2+ radial (R), 2+ radial (L), 2+ dorsalis pedis (R), 2+ dorsalis pedis (L) Gastrointestinal: soft, non-tender Back: normal inspection, normal range of motion, lumbar spine and paraspinous muscles tender to palpation bilaterally worse on the right no bruising swelling or abrasions no rashes no step-offs or deformities Extremities: normal range of motion, pain palpation of the bilateral knees diffusely. Full range of motion of the bilateral upper and lower extremities is intact. No joint swelling deformities. Patient is able to walk and bear weight Neurologic/Psych: no motor/sensory deficits, awake, alert, oriented x 3, normal gait (with walker ), normal mood/affect Skin: intact, normal color, warm/dry Core Measures ACS in differential dx? No CVA/TIA Diagnosis No Sepsis Present: No Sepsis Focused Exam Completed? No (Ashvin GARCIA,Florentin) Progress Differential Diagnosis: ext injury, ICH, pelvis injury, spinal cord injury, fracture, contusion, sprain Diagnostic Imaging: Viewed by Me: Radiology Read, CT Scan. Discussed w/RAD: Radiology Read, CT Scan. Radiology Impression: PATIENT: GONZÁLEZ HASSAN PRESENT AGE: 87 PATIENT ACCOUNT NO: [id number] : 30 LOCATION: [facility] ORDERING PHYSICIAN: Florentin GARCIA SERVICE DATE: 11/24/17 EXAM TYPE: RAD - XRY- KNEE COMPLETE LEFT; XRY-KNEE COMPLETE RIGHT EXAMINATION: RIGHT KNEE 4 VIEWS LEFT KNEE 4 VIEWS CLINICAL INFORMATION: Pain status post fall COMPARISON: None TECHNIQUE: As above nonweightbearing FINDINGS: Extensive Monckeberg calcifications suggesting diabetes. Mild chondrocalcinosis. Right knee: No fracture. Diffuse spurring. Joint spaces preserved. There is trace joint effusion on the right. Left knee: Moderate size effusion on the left. Severe joint space narrowing throughout. No deformity. Diffuse spurring. IMPRESSION: No fracture. Chronic findings as above. Nonspecific joint effusions. DICTATED BY: Orlando Gonzalez MD DATE/TIME DICTATED:11/24/171555 SULFURIC [employer] PLANT OPERATOR:KENNY DATE /TIME TRANSCRIBED:11/24/171555 CONFIDENTIAL, DO NOT COPY WITHOUT APPROPRIATE AUTHORIZATION. <Electronically signed in Other Vendor System> SIGNED BY: Orlando Gonzalez MD 11/24/17 1604, PATIENT: GONZÁLEZ HASSAN PRESENT AGE: 87 PATIENT ACCOUNT NO: [id number] : 30 LOCATION: [facility] ORDERING PHYSICIAN: Florentin GARCIA SERVICE DATE: 11/24/17 EXAM TYPE: CAT - CT ABD & PELVIS W/O IV CONTRAS EXAMINATION: CT ABDOMEN AND PELVIS WITHOUT CONTRAST CLINICAL INFORMATION: Low back pain after fall. COMPARISON: Previous CT scan July 2015. TECHNIQUE: Multidetector volumetric imaging was performed from the superior aspect of the liver through the pubic symphysis. Sagittal and coronal reformatted images were obtained on the technologist's workstation. DLP: 432 mGy-cm FINDINGS: LUNG BASES: There is evidence of interstitial lung disease seen at the lung bases. There is right pleural or diaphragmatic calcification. There is evidence of atherosclerotic disease with coronary artery and aortic valve calcification. The heart does not appear enlarged. There is no pericardial effusion. LIVER, GALLBLADDER, AND BILIARY TREE: There are calcifications seen high in the dome of the liver that are stable. The liver is otherwise unremarkable. The gallbladder may be contracted and contain stone. PANCREAS: Unremarkable. SPLEEN: Unremarkable. ADRENAL GLANDS: Unremarkable. KIDNEYS AND URETERS: There is a 1 cm low-attenuation lesion in the upper pole of the left kidney probably representing a cyst. BLADDER: Unremarkable. GASTROINTESTINAL TRACT: There is evidence of diverticulosis. No evidence of diverticulitis is seen. Small and large bowel is otherwise unremarkable. ABDOMINAL WALL: There is a small umbilical hernia and right inguinal hernia containing fat. LYMPH NODES: There are no enlarged lymph nodes. There is no ascites. VASCULAR: There is evidence of atherosclerotic disease. No aneurysm is seen. PELVIC VISCERA: The prostate gland does not appear enlarged. OSSEOUS STRUCTURES: There is curvature of the lumbar spine to the right and severe multilevel degenerative disc disease and facet arthritis. No fracture is seen. IMPRESSION: No fracture seen. Lumbar scoliosis and severe degenerative changes of the spine. Diverticulosis. Evidence of interstitial lung disease at the lung bases. DICTATED BY: Juliane Nelson MD DATE/TIME DICTATED:11/24/171531 SULFURIC [employer] PLANT OPERATOR:KENNY DATE/TIME TRANSCRIBED:11/24/171531 CONFIDENTIAL, DO NOT COPY WITHOUT APPROPRIATE AUTHORIZATION. <Electronically signed in Other Vendor System> SIGNED BY: Juliane Nelson MD 11/24/17 1558, PATIENT: GONZÁLEZ HASSAN PRESENT AGE: 87 PATIENT ACCOUNT NO: [id number] : 30 LOCATION: [facility] ORDERING PHYSICIAN: Florentin GARCIA SERVICE DATE: 11/24/17 EXAM TYPE: CAT - CT ABD & PELVIS W/O IV CONTRAS EXAMINATION: CT ABDOMEN AND PELVIS WITHOUT CONTRAST CLINICAL INFORMATION: Low back pain after fall. COMPARISON: Previous CT scan July 2015. TECHNIQUE: Multidetector volumetric imaging was performed from the superior aspect of the liver through the pubic symphysis. Sagittal and coronal reformatted images were obtained on the technologist's workstation. DLP: 432 mGy-cm FINDINGS: LUNG BASES: There is evidence of interstitial lung disease seen at the lung bases. There is right pleural or diaphragmatic calcification. There is evidence of atherosclerotic disease with coronary artery and aortic valve calcification. The heart does not appear enlarged. There is no pericardial effusion. LIVER, GALLBLADDER, AND BILIARY TREE: There are calcifications seen high in the dome of the liver that are stable. The liver is otherwise unremarkable. The gallbladder may be contracted and contain stone. PANCREAS: Unremarkable. SPLEEN: Unremarkable. ADRENAL GLANDS: Unremarkable. KIDNEYS AND URETERS: There is a 1 cm low-attenuation lesion in the upper pole of the left kidney probably representing a cyst. BLADDER: Unremarkable. GASTROINTESTINAL TRACT: There is evidence of diverticulosis. No evidence of diverticulitis is seen. Small and large bowel is otherwise unremarkable. ABDOMINAL WALL: There is a small umbilical hernia and right inguinal hernia containing fat. LYMPH NODES: There are no enlarged lymph nodes. There is no ascites. VASCULAR: There is evidence of atherosclerotic disease. No aneurysm is seen. PELVIC VISCERA: The prostate gland does not appear enlarged. OSSEOUS STRUCTURES: There is curvature of the lumbar spine to the right and severe multilevel degenerative disc disease and facet arthritis. No fracture is seen. IMPRESSION: No fracture seen. Lumbar scoliosis and severe degenerative changes of the spine. Diverticulosis. Evidence of interstitial lung disease at the lung bases. DICTATED BY: Omar ROLON,Juliane Gregory DATE/TIME DICTATED:11/24/171531 SULFURIC AC[employer] PLANT OPERATOR:KENNY DATE/TIME TRANSCRIBED:11/24/171531 CONFIDENTIAL, DO NOT COPY WITHOUT APPROPRIATE AUTHORIZATION. <Electronically signed in Other Vendor System> Initial ED EKG: normal sinus rhythm, LVH (Ashvin GARCIA,Florentin) Plan of Care: Laboratory Tests 11/24/17 171: Urine Color YEL, Urine Clarity CLEAR, Urine pH 7.0, Ur Specific [place] 1.020, Urine Protein TRACE H, Urine Ketones NEG, Urine Nitrite NEG, Urine Bilirubin NEG, Urine Urobilinogen 0.2, Ur Leukocyte Esterase NEG, Ur Microscopic SEDIMENT EXAMINED, Urine RBC RARE, Urine WBC RARE, Ur Epithelial Cells RARE, Urine Bacteria RARE H, Urine Hemoglobin NEG, Urine Glucose 500 H \ Patient seen and evaluated. He suffered a fall when his knees gave out. He is supposed to be walking with a walker but was not using it today. He is reporting pain in both knees and his lower back. No blood thinners. She was medicated with Tylenol check basic blood work EKG CT scans of the head neck abdomen and pelvis and x-rays the knees. Blood work is not showing any acute change. Imaging negative for trauma. Patient is feeling better for Tylenol. He was ambulated in the emergency department with a walker and his gait is at baseline. Family is at bedside feel like his gait and mental status is at baseline. Patient will be discharged home with instructions to continue to use Tylenol as needed for pain walk with walker. Follow-up with primary care doctor discussed return precautions patient agrees the plan. Case discussed with Dr. Anthony he agrees. (Florentin Ferguson) (Eladio Anthony DO) Departure Departure Disposition: HOME OR SELF CARE Condition: Stable Clinical Impression Primary Impression: Weakness Referrals: Nicolás ROLON,Yuniel Kauffman (PCP/Family) Additional Instructions: Continue all medications as directed. Follow with primary care doctor this week. Walk with a walker. Monitor symptoms closely return with any concerns. Departure Forms: Customer Survey General Discharge Information (Florentin Ferguson) PA/PRODUCE PRODUCTION TEAM MEMBER Co-Sign Statement Statement: ED Attending supervision documentation- [X] I saw and evaluated the patient. I have also reviewed all the pertinent lab results and diagnostic results. I agree with the findings and the plan of care as documented in the PA's/PRODUCE PRODUCTION TEAM MEMBER's documentation. [] I have reviewed the ED Record and agree with the PA's/PRODUCE PRODUCTION TEAM MEMBER's documentation. [] Additions or exceptions (if any) to the PAs/PRODUCE PRODUCTION TEAM MEMBER's note and plan are summarized below: [] No acute distress. Asymptomatic on my exam, History of 47 kidney stones. (Eladio Anthony DO)
--- NOTE | 2017-11-24 15:58 | CT SCAN REPORT ---
EXAMINATION: CT ABDOMEN AND PELVIS WITHOUT CONTRAST CLINICAL INFORMATION: Low back pain after fall. COMPARISON: Previous CT scan July 2015. TECHNIQUE: Multidetector volumetric imaging was performed from the superior aspect of the liver through the pubic symphysis. Sagittal and coronal reformatted images were obtained on the technologist's workstation. DLP: 432 mGy-cm FINDINGS: LUNG BASES: There is evidence of interstitial lung disease seen at the lung bases. There is right pleural or diaphragmatic calcification. There is evidence of atherosclerotic disease with coronary artery and aortic valve calcification. The heart does not appear enlarged. There is no pericardial effusion. LIVER, GALLBLADDER, AND BILIARY TREE: There are calcifications seen high in the dome of the liver that are stable. The liver is otherwise unremarkable. The gallbladder may be contracted and contain stone. PANCREAS: Unremarkable. SPLEEN: Unremarkable. ADRENAL GLANDS: Unremarkable. KIDNEYS AND URETERS: There is a 1 cm low-attenuation lesion in the upper pole of the left kidney probably representing a cyst. BLADDER: Unremarkable. GASTROINTESTINAL TRACT: There is evidence of diverticulosis. No evidence of diverticulitis is seen. Small and large bowel is otherwise unremarkable. ABDOMINAL WALL: There is a small umbilical hernia and right inguinal hernia containing fat. LYMPH NODES: There are no enlarged lymph nodes. There is no ascites. VASCULAR: There is evidence of atherosclerotic disease. No aneurysm is seen. PELVIC VISCERA: The prostate gland does not appear enlarged. OSSEOUS STRUCTURES: There is curvature of the lumbar spine to the right and severe multilevel degenerative disc disease and facet arthritis. No fracture is seen. IMPRESSION: No fracture seen. Lumbar scoliosis and severe degenerative changes of the spine. Diverticulosis. Evidence of interstitial lung disease at the lung bases.
--- NOTE | 2017-11-24 16:04 | RADIOLOGY REPORT ---
EXAMINATION: RIGHT KNEE 4 VIEWS LEFT KNEE 4 VIEWS CLINICAL INFORMATION: Pain status post fall COMPARISON: None TECHNIQUE: As above nonweightbearing FINDINGS: Extensive Monckeberg calcifications suggesting diabetes. Mild chondrocalcinosis. Right knee: No fracture. Diffuse spurring. Joint spaces preserved. There is trace joint effusion on the right. Left knee: Moderate size effusion on the left. Severe joint space narrowing throughout. No deformity. Diffuse spurring. IMPRESSION: No fracture. Chronic findings as above. Nonspecific joint effusions.
[2017-11-24 16:17] LABS: ABSOLUTE BASOPHIL COUNT 0 /CUMM (0.0-0.2); ABSOLUTE EOSINOPHIL COUNT 0.3 /CUMM (0.0-0.7); ABSOLUTE GRANULOCYTE CT 3.8 /CUMM (1.4-6.5); ABSOLUTE LYMPH COUNT 1.5 /CUMM (1.2-3.4); ABSOLUTE MONOCYTE COUNT 0.6 /CUMM (0.10-0.60); BASOPHIL % 0.5 % (0.0-2.0); EOSINOPHIL % 4.9 % (0-5); GRANULOCYTE % 61.2 % (42.2-75.2); HEMATOCRIT 30.8 % (42-52); MEAN CORPUSCULAR HGB 32.3 PG (27.0-31.0); MEAN CORPUSCULAR HGB CONC 33.6 G/DL (33.0-37.0); MEAN CORPUSCULAR VOLUME 96.3 FL (80.0-94.0); MEAN PLATELET VOLUME 7.3 FL (7.4-10.4); PLATELET COUNT 188 /CUMM (130-400); RBC DISTRIBUTION WIDTH 15.8 % (11.5-14.5); WHITE BLOOD CELL COUNT 6.2 /CUMM (4.8-10.8)
--- NOTE | 2017-11-24 16:20 | CT SCAN REPORT ---
EXAMINATION: CT HEAD WITHOUT CONTRAST CT CERVICAL SPINE WITHOUT CONTRAST CLINICAL INFORMATION: Status post fall. Head trauma. On Plavix. COMPARISON: CT head 09/07/2017, 10/21/2016. Brain MRI of 10/22/2016. DLP: 870.56 mGy-cm. TECHNIQUE: Multidetector volumetric CT imaging of the head and neck is acquired without intravenous contrast administration. Post-processing is performed at a dedicated workstation. Multiplanar reformatted images are submitted. FINDINGS: CT HEAD: There is no evidence of acute intracranial hemorrhage, midline shift or mass effect. Hogan to white matter differentiation is well preserved. No evidence of acute territorial infarction. Extensive periventricular and subcortical white matter hypoattenuating changes are again noted, similar to previous studies reflecting changes of chronic microangiopathy. There is no evidence of abnormal extra-axial fluid collection. There is global volume loss with proportionate dilatation of the ventricles and cortical sulci. Ggyehelb-uy-cciiwk calcific atherosclerosis of the internal carotid and vertebral arteries. The patient is status post bilateral lens extraction. The visualized paranasal sinuses are clear. Mastoid air cells and middle ear cavities are well aerated. No evidence of significant calvarial soft tissue swelling or hematoma. CT CERVICAL SPINE: The vertebral body heights are maintained. There is mild anterior subluxation of C4 over C5. There is severe narrowing of C5-C6, C6-C7 and C7-T1 disc spaces. Endplate sclerotic changes are noted at C5-C6 and C6-C7. Small marginal osteophytes are noted from C3 to C7. The posterior elements are intact and in normal alignment. Multilevel bilateral rqqf-tq-eampumul facet arthropathy is noted. No evidence of tight central canal stenosis. Multilevel mild bilateral neural foraminal stenosis is noted. Atlantoaxial and atlanto-occipital alignments are normal. No evidence of prevertebral soft tissue swelling. The visualized thyroid gland is unremarkable. No significant abnormality is noted in the visualized lung apices. IMPRESSION: 1. No evidence of acute intracranial abnormality. Specifically, there is no evidence of acute intracranial hemorrhage. 2. Stable changes of severe chronic microangiopathy. 3. No evidence of acute fracture or traumatic subluxation in the cervical spine. Rhij-lt-spssnwgr diffuse cervical spondylosis. Mild anterior subluxation of C3-C4 over C5 is likely degenerative.
[2017-11-24 16:38] VITALS: BP 153/68
== END 2017-11-24 18:24 ==
LOC: ERH 13:46
PROVIDERS: Physician Assistant Medical
DX: R53.1 Weakness (principal); M25.561 Pain in right knee; M25.562 Pain in left knee; M54.5 Low back pain; I10 Essential (primary) hypertension
CPT/HCPCS: 73562-LT; 73562-RT; 74176; 81001; 93005; 93010; 96365; J0131

== ENCOUNTER 2018-01-14 02:39 | Emergency (ER) | payer OTHER ==
[~2018-01-14] VITALS: Ht 162.6 cm; Wt 63.5 kg
--- NOTE | 2018-01-14 03:19 | ED HEAD/FACIAL INJ COMPLAINT ---
History of Present Illness General Chief Complaint: Fall Stated Complaint: FALL Source: patient, old records, EMS Exam Limitations: no limitations Vital Signs & Intake/Output Vital Signs & Intake/Output Vital Signs Date Time Temp Pulse Resp B/P B/P Pulse O2 O2 Flow FiO2 Mean Ox Delivery Rate 01/14 0242 97.8 71 18 178/77 97 Room Air Allergies Coded Allergies: Iodinated Contrast- Oral and IV Dye (IODINATED CONTRAST MEDIA - IV DYE) (SOB, HIVES 05/11/16) Reconcile Medications Aspirin (Ecotrin*) 81 MG TABLET.DR 1 TAB PO DAILY HEART/BLOOD (Reported) Atorvastatin Calcium 80 MG TABLET 1 TAB PO 1700 TIA Clopidogrel Bisulfate (Plavix) 75 MG TABLET 1 MG PO DAILY TIA Insulin Glargine,Hum.rec.anlog (Lantus Solostar) 100 UNIT/ML (3 ML) INSULN.PEN 40 UNIT SC QPM DIABETES (Reported) Labetalol HCl 300 MG TABLET 1 TAB PO BID BP (Reported) Levetiracetam (Keppra) 500 MG TABLET 1,000 MG PO BID Seizure . Lisinopril 10 MG TABLET 1 TAB PO DAILY BLOOD PRESSURE Pravastatin Sodium 40 MG TABLET 1 TAB PO QPM CHOLESTEROL (Reported) Triage Note: PT BIBA FROM HOME C/O FALL 45 MINS PRIOR TO ARRIVAL. PTS CALLED 911 AFTER PT FELL, PT IS WITHOUT POWER D/T STORM AND MISJUDGED THE DISTANCE TO THE WALKER. PT STATES HE FELL ON HIS BOTTOM STRIKING HEAD AND NECK ON THE TOILET. PT ARRIVED IN C-COLLAR WITH C-SPINE TENDERNESS. PT HAS RED FALL RISK BRACELET APPLIED WELL SOCKS. PT IS A&0X3. FALL WAS UNWITNESSED, UNKNOWN IF LOC, +HEADSTRIKE, -BLOOD THINNERS. PT PLACED ON MONITOR, AWAITING PROVIDER EVAL. Triage Nurses Notes Reviewed? yes Onset: Just prior to arrival Severity: moderate Location: occipital Method of Injury: direct blow, fall Loss of Consciousness: no loss of consciousness Associated Symptoms: neck pain HPI: Prior to admission patient was walking in the dark misjudged a step and fell onto his buttocks striking the back of his head and neck against the toilet unable to get up. He denies fever chills nausea vomiting diarrhea abdominal pain chest pain shortness breath headache dysuria rash bleeding loss of consciousness change in motor sensory function change in bowel bladder habit. Past History Travel History Traveled to [place] past 21 day No Medical History Any Pertinent Medical History? 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 No Review of Systems Review of Systems Constitutional: Reports: no symptoms. EENTM: Reports: no symptoms. Respiratory: Reports: no symptoms. Cardiovascular: Reports: no symptoms. GI: Reports: no symptoms. Genitourinary: Reports: no symptoms. Musculoskeletal: Reports: see HPI, neck pain. Skin: Reports: no symptoms. Neurological/Psychological: Reports: no symptoms. Hematologic/Endocrine: Reports: no symptoms. Immunologic/Allergic: Reports: no symptoms. All Other Systems: Reviewed and Negative Physical Exam Physical Exam General Appearance: well developed/nourished, alert, awake, mild distress Head: atraumatic, normal appearance Eyes: Bilateral: normal appearance, PERRL, EOMI. Ears, Nose, Throat: normal pharynx, normal ENT inspection, hearing grossly normal Neck: normal inspection, supple, full range of motion Respiratory: normal breath sounds, chest non-tender, no respiratory distress, quiet respiration, lungs clear Cardiovascular: regular rate/rhythm, normal peripheral pulses, norml femoral pulses equa Gastrointestinal: normal bowel sounds, soft, non-tender, no organomegaly Back: normal inspection, normal range of motion, no vertebral tenderness Extremities: normal inspection, normal range of motion, no edema Psychiatric: awake, alert, oriented x 3 Cranial Nerves: normal hearing, normal speech, PERRL Coordination/Gait: normal finger to nose Motor/Sensory: no motor/sensory deficits Reflexes: 2+: bicep (R), bicep (L). Skin: intact, normal color, warm/dry Lymphatic: no anterior cervical martha Progress Differential Diagnosis: c-spine injury, ICH, skull fracture Plan of Care: Orders Procedure Date/time Status CT HEAD WO IV CONTRAST 01/[address] CERV SPINE WO IV CONTRAST 01/14 318 Active Diagnostic Imaging: Viewed by Me: CT Scan. Discussed w/RAD: CT Scan. Radiology Impression: No evidence for acute intracranial injury. Age-appropriate appearance of the brain. No evidence for acute injury to the cervical spine. Age -appropriate degenerative change within the cervical spine. Departure Departure Time of Disposition: 425 Disposition: HOME OR SELF CARE Condition: Stable Clinical Impression Primary Impression: Minor head injury without loss of consciousness Secondary Impressions: Contusion of neck, Fall at home Referrals: Nicolás ROLON,Yuniel Kauffman (PCP/Family) Departure Forms: Customer Survey General Discharge Information
--- NOTE | 2018-01-14 03:55 | CT SCAN REPORT ---
EXAMINATIONS: CT HEAD WITHOUT CONTRAST AND CT CERVICAL SPINE WITHOUT CONTRAST CLINICAL INFORMATION: Pain after fall. Trauma. COMPARISON: November 24, 2017. TECHNIQUE: Contiguous helical images of the brain were obtained without IV contrast. Contiguous helical images of the cervical spine were obtained without IV contrast. Multiplanar reconstructions were performed. DLP: 871 mGy-cm. FINDINGS: There are no pathologic extra-axial fluid collections. The lateral, third, fourth ventricles are prominent, though stable, age-appropriate and concordant with the appearance of the sulci. There is no evidence for acute intraparenchymal hemorrhage or infarct. There is periventricular low-attenuation indicative of small vessel disease. There is neither mass nor mass effect. There is no shift of midline structures. The paranasal sinuses and mastoid air cells are clear. There are no osseous lesions. The cervical vertebra are in normal alignment. There is multilevel disc height loss with anterior osteophyte formation. Disc heights and vertebral heights are otherwise well-preserved. There are no fractures. There is no prevertebral soft tissue swelling. There is no cervical lymphadenopathy. Partially visualized are fibrotic changes within the right apex and upper lobe. IMPRESSION: No evidence for acute intracranial injury. Age-appropriate appearance of the brain. No evidence for acute injury to the cervical spine. Age-appropriate degenerative change within the cervical spine.
[2018-01-14 06:44] VITALS: BP 169/74
== END 2018-01-14 07:49 ==
LOC: ERH 02:39
DX: S09.90XA Unspecified injury of head, initial encounter (principal); S10.93XA Contusion of unspecified part of neck, initial encounter; W19.XXXA Unspecified fall, initial encounter; Y92.009 Unspecified place in unspecified non-institutional (private) residence as the place of occurrence of the external cause; Y93.01 Activity, walking, marching and hiking

== ENCOUNTER 2018-03-11 10:23 | Observation (INO) | payer OTHER ==
[~2018-03-11] VITALS: Ht 160 cm; Wt 65.3 kg
--- NOTE | 2018-03-11 10:28 | ED NEURO DEFICIT/STROKE ---
History of Present Illness General Chief Complaint: General Adult Stated Complaint: BIBA L SIDE NUMBNESS Source: patient, family, old records, EMS Exam Limitations: no limitations Vital Signs & Intake/Output Vital Signs & Intake/Output Vital Signs Date Time Temp Pulse Resp B/P B/P Pulse O2 O2 Flow FiO2 Mean Ox Delivery Rate 03/11 1256 61 18 162/70 99 Room Air 03/11 1037 96.6 63 20 147/67 99 Room Air Allergies Coded Allergies: Iodinated Contrast- Oral and IV Dye (IODINATED CONTRAST MEDIA - IV DYE) (SOB, HIVES 05/11/16) Reconcile Medications Aspirin (Ecotrin*) 81 MG TABLET.DR 1 TAB PO DAILY HEART/BLOOD (Reported) Atorvastatin Calcium 80 MG TABLET 1 TAB PO 1700 TIA Clopidogrel Bisulfate (Plavix) 75 MG TABLET 1 MG PO DAILY TIA Insulin Glargine,Hum.rec.anlog (Lantus Solostar) 100 UNIT/ML (3 ML) INSULN.PEN 35 UNIT SC QPM DIABETES (Reported) Labetalol HCl 300 MG TABLET 1 TAB PO BID BP (Reported) Levetiracetam 500 MG TABLET 1 TAB PO BID SEIZURES (Reported) Lisinopril 20 MG TABLET 1 TAB PO DAILY HEART (Reported) Metformin HCl 500 MG TABLET 1 TAB PO DAILY DIABETES (Reported) Pravastatin Sodium 40 MG TABLET 1 TAB PO QPM CHOLESTEROL (Reported) Triage Nurses Notes Reviewed? yes HPI: Patient was closing a window this morning when he had a sudden onset of numbness on the entire left side of his body. Patient denies any weakness. Patient went to a couch and sat down and began to feel better. Patient states in total the symptoms lasted approximately 15 minutes. Patient is currently asymptomatic. Patient does have a history of a TIA which affected the right side of his body back in August. Patient also has a history of a cerebellar hemorrhage. Patient is on Plavix. Patient denies any headache or blurry vision. There is no nausea or vomiting. Past History Medical History Any Pertinent Medical History? 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 No Review of Systems Review of Systems Constitutional: Reports: no symptoms. EENTM: Reports: no symptoms. Respiratory: Reports: no symptoms. Cardiovascular: Reports: no symptoms. GI: Reports: no symptoms. Genitourinary: Reports: no symptoms. Musculoskeletal: Reports: no symptoms. Skin: Reports: no symptoms. Neurological/Psychological: Reports: see HPI. Hematologic/Endocrine: Reports: no symptoms. Immunologic/Allergic: Reports: no symptoms. All Other Systems: Reviewed and Negative Physical Exam Physical Exam General Appearance: well developed/nourished, alert, awake, anxious, mild distress Head: atraumatic, normal appearance Eyes: Bilateral: PERRL, EOMI. Ears, Nose, Throat: normal ENT inspection, moist mucous membrane, hearing grossly normal Neck: normal inspection, supple, full range of motion Respiratory: normal breath sounds, chest non-tender, no respiratory distress, lungs clear Cardiovascular: regular rate/rhythm, normal peripheral pulses Gastrointestinal: normal bowel sounds, soft, non-tender Back: normal inspection, normal range of motion Extremities: normal range of motion Psychiatric: awake, alert, oriented x 3 Cranial Nerves: normal hearing, normal speech, PERRL Coordination/Gait: normal finger to nose Motor/Sensory: no motor/sensory deficits Skin: intact, normal color, warm/dry Lymphatic: no anterior cervical martha Core Measures CVA/TIA Diagnosis: Yes NIH Stroke Scale NIH Stroke Scale Response Value Level of Consciousness alert 0 LOC Questions answers both correctly 0 LOC Commands obeys both correctly 0 Best Gaze normal 0 Visual Tierney no visual loss 0 Facial Paresis normal 0 Motor Arm - Left no drift 0 Motor Arm - Right no drift 0 Motor Leg - Left no drift 0 Motor Leg - Right no drift 0 Limb Ataxia no ataxia 0 Sensory normal 0 Best Language no aphasia 0 Dysarthria normal articulation 0 Extinction and Inattention no neglect 0 Total 0 Date Last Known Well: 03/11/18 Time Last Known Well: 1000 Symptom Start Date: 03/11/18 Symptom Start Time: 1000 tPA Risk/Benefit discussion I have discussed the risks, benefits, and alternatives of Alteplase treatment including: - If given promptly, can resolve or have major improvement in stroke symptoms. - Bleeding (hemorrhage) is the most common risk that can occur. - Bleeding may occur into the brain and cause~intermediate manager serious disability~ including - this is rare, affecting about 1% of patients. - Alternative treatments with proven benefit for patients with stroke include aspirin and care in a specialized unit where staff members pay careful attention to a variety of basic aspects of care. tPA given? No Reason tPA not given Medical Contraindication Swallow Evaluation Pass Swallow eval date 03/11/18 Swallow eval time 1300 Sepsis Present: No Sepsis Focused Exam Completed? No Progress Differential Diagnosis: intracranial Hem., intracranial mass/tumor, migraine FITZPATRICK, seizure disorder, stroke Plan of Care: Orders Procedure Date/time Status Heart Healthy Diet 03/[address] in observation 03/11 1320 Active ED Holding Orders 03/11 1320 Active Vital Signs 03/11 1320 Active Code Status 03/11 1320 Active Telemetry/Typewriter Ribbon Winder 03/11 1027 Active URINALYSIS 03/11 1027 Active TROPONIN LEVEL 03/11 1027 Complete PARTIAL THROMBOPLASTIN TIME 03/11 1027 Complete PROTHROMBIN TIME 03/11 1027 Complete COMPREHENSIVE METABOLIC PANEL 03/11 1027 Complete CBC WITHOUT DIFFERENTIAL 03/11 1027 Complete EKG 03/11 1027 Active Laboratory Tests 03/11/18 1035: Anion Gap 11, Estimated GFR > 60, BUN/Creatinine Ratio 22.5, Glucose 141 H, Calcium 9.0, Total Bilirubin 0.4, AST 25, ALT 31, Alkaline Phosphatase 97, Troponin I < 0.01, Total Protein 6.3, Albumin 3.5, Globulin 2.8, Albumin/ Globulin Ratio 1.3, PT 13.3 H, INR 1.22 H, APTT 29, CBC w Diff NO MAN DIFF REQ , RBC 3.29 L, MCV 96.3 H, MCH 32.5 H, MCHC 33.7, RDW 15.0 H, MPV 7.9, Gran % 49.8, Lymphocytes % 31.8, Monocytes % 8.3, Eosinophils % 9.5 H, Basophils % 0.6 , Absolute Granulocytes 2.7, Absolute Lymphocytes 1.7, Absolute Monocytes 0.5, Absolute Eosinophils 0.5, Absolute Basophils 0 Diagnostic Imaging: Viewed by Me: CT Scan. Discussed w/RAD: CT Scan. Radiology Impression: PATIENT: GONZÁLEZ HASSAN PRESENT AGE: 88 PATIENT ACCOUNT NO: [id number] : 30 LOCATION: [facility] ORDERING PHYSICIAN: Ifrah Gamboa MD SERVICE DATE: 03/11/18 EXAM TYPE: CAT - CT HEAD WO IV CONTRAST EXAMINATION: CT HEAD WITHOUT CONTRAST CLINICAL INFORMATION: Question CVA COMPARISON: CT head most recent prior dated 03/11/2018 TECHNIQUE: Contiguous axial imaging was performed from the skull base to vertex without intravenous administration of contrast. DLP: 599.69 mGy-cm FINDINGS: There is no evidence of acute intra-axial or extra-axial hemorrhage. No acute mass effect or midline shift. Prominence of the ventricles and sulci noted again compatible with age-related involutional changes. Significant prominence of the periventricular and subcortical white matter low-attenuation consistent with underlying severe small vessel ischemic disease. No acute loss of angeles-white differentiation appreciated. Visualized paranasal sinuses and mastoid air cells are well aerated. Visualized osseous structures are intact. Atherosclerotic disease with intimal calcification distal bilateral internal carotid arteries and distal vertebral arteries.. IMPRESSION: No acute intracranial pathology. Moderate to severe atrophy and small vessel ischemic disease. DICTATED BY: Bev Mckeon MD DATE/TIME DICTATED:03/11/181117 ACCOUNTANT COST:KENNY DATE/ TIME TRANSCRIBED:03/11/181117 CONFIDENTIAL, DO NOT COPY WITHOUT APPROPRIATE AUTHORIZATION. <Electronically signed in Other Vendor System> SIGNED BY: Bev Mckeon MD 03/11/18 1124 Initial ED EKG: NSR, LVH, nonspecific ST T wave chg Prior EKG: unchanged Rhythm Strip: normal sinus rhythm Comments: Discussed with Dr. Gonzalez, he will consult. Departure Departure Disposition: STILL A PATIENT Condition: Stable Clinical Impression Primary Impression: TIA (transient ischemic attack) Referrals: Nicolás ROLON,Yuniel Kauffman (PCP/Family) Departure Forms: Customer Survey General Discharge Information Observation Note Spoke With: Felicia Del Cid MD Physician Advisor Notified: JASON ROLON,IFRAH Blank[address] Place Patient In: Non-ED OBS Care Area Rationale for Observation: My rational for observation is as follows [telemetry monitoring, serial enzymes, neurology consultation, patient is at highest risk of having a repeat stroke within the first 24 hours after having a TIA.].
[2018-03-11] MEDS ORDERED: LISINOPRIL20 M1 PO (10:38)
[2018-03-11] MEDS ORDERED: METFORMIN HCL500 M3 PO (10:39)
[2018-03-11] MEDS ORDERED: LEVETIRACETAM500 M2 PO (10:40)
[2018-03-11 10:52] LABS: ABSOLUTE BASOPHIL COUNT 0 /CUMM (0.0-0.2); ABSOLUTE EOSINOPHIL COUNT 0.5 /CUMM (0.0-0.7); ABSOLUTE GRANULOCYTE CT 2.7 /CUMM (1.4-6.5); ABSOLUTE LYMPH COUNT 1.7 /CUMM (1.2-3.4); ABSOLUTE MONOCYTE COUNT 0.5 /CUMM (0.10-0.60); BASOPHIL % 0.6 % (0.0-2.0); EOSINOPHIL % 9.5 % (0-5); GRANULOCYTE % 49.8 % (42.2-75.2); HEMATOCRIT 31.7 % (42-52); MEAN CORPUSCULAR HGB 32.5 PG (27.0-31.0); MEAN CORPUSCULAR HGB CONC 33.7 G/DL (33.0-37.0); MEAN CORPUSCULAR VOLUME 96.3 FL (80.0-94.0); MEAN PLATELET VOLUME 7.9 FL (7.4-10.4); PLATELET COUNT 174 /CUMM (130-400); RED BLOOD CELL CT 3.29 /CUMM (4.70-6.10); WHITE BLOOD CELL COUNT 5.4 /CUMM (4.8-10.8)
[2018-03-11 11:13] LABS: PT 13.3 SEC (9.4-12.5); PTT 29 SEC (25-37)
--- NOTE | 2018-03-11 11:24 | CT SCAN REPORT ---
EXAMINATION: CT HEAD WITHOUT CONTRAST CLINICAL INFORMATION: Question CVA COMPARISON: CT head most recent prior dated 03/11/2018 TECHNIQUE: Contiguous axial imaging was performed from the skull base to vertex without intravenous administration of contrast. DLP: 599.69 mGy-cm FINDINGS: There is no evidence of acute intra-axial or extra-axial hemorrhage. No acute mass effect or midline shift. Prominence of the ventricles and sulci noted again compatible with age-related involutional changes. Significant prominence of the periventricular and subcortical white matter low-attenuation consistent with underlying severe small vessel ischemic disease. No acute loss of angeles-white differentiation appreciated. Visualized paranasal sinuses and mastoid air cells are well aerated. Visualized osseous structures are intact. Atherosclerotic disease with intimal calcification distal bilateral internal carotid arteries and distal vertebral arteries.. IMPRESSION: No acute intracranial pathology. Moderate to severe atrophy and small vessel ischemic disease.
--- NOTE | 2018-03-11 13:38 | History & Physical ---
Davis Chappell 03/11/18 1331: General Information and HPI MD Statement: I have seen and personally examined GONZÁLEZ HASSAN and documented this H&P. The patient is a 88 year old M who presented with a patient stated chief complaint of left sided numbness. Source of Information: patient, family Exam Limitations: confusion History of Present Illness: Mr. 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 In addition, patient has severe aortic stenosis, hyperlipidemia, arthritis.Patient was previously admitted to [facility] in October 2016 where he had an episode of dysarthria and no other symptoms. Previous to that admission, patient was at the [facility] where he had facial numbness and droop. Patient had outpatient MRI and EHO and a two day holter monitor at that time. Previous scans and EEG at that time were negative. ECHO 2016 demonstrated EF of 80% and severe aortic stenosis and patient was started on plavix, aspirin and high-intensity statin. Patient had been following up with neurology at the [facility] (Dr. Luz). During todays admission, patient was accompanied by his . He stated that he was closing a window this morning when he began to feel lightheaded. Patient claims to have felt numbness from the left side of his face, left arm and lower left extremity. Patient at that time was able to knock on the window to call his and fell back into a chair behind the window. He denied any loss of conciousness or trauma to the head. No changes in speach or weakness reported. No chest pain, shortness of breath or headaches associated with the event. Patient claims to have increasing left eye discomfort and blurred vision since his previous strokes. Patient lives with his at home. He uses a walker at baseline. According to , a couple months ago, he stopped taking medications for a few weeks. Afterwards, he spoke to Dr. Jay and was conviniced to continue his medications. Patient denies any smoking history or use of alcohol. No significant family history noted. Patients PCP is Dr. Whatley Patient follows up with Dr. Jay (Cardiology) Patient follows up with [facility] for Neurology Allergies/Medications Allergies: Coded Allergies: Iodinated Contrast- Oral and IV Dye (IODINATED CONTRAST MEDIA - IV DYE) (SOB, HIVES 05/11/16) Past History Travel History Traveled to [place] past 21 day No Medical History Neurological: CVA, seizure, TIA EENT: glaucoma Cardiovascular: aortic stenosis, hypertension, hyperlipidemia, AORTIC STENOSIS Respiratory: NONE Gastrointestinal: HERNIA Hepatic: NONE Renal: KIDNEY STONES Musculoskeletal: ARTHRITIS IN KNEES Psychiatric: NONE Endocrine: diabetes Blood Disorders: NONE Cancer(s): NONE ABSTRACT SEARCHER/Reproductive: NONE History of MRSA: No History of VRE: No History of CDIFF: No Surgical History Surgical History: hernia repair Past Family/Social History Family History Relations & Conditions if any FATHER FH: cancer FH: heart disease Psychosocial History Who Do You Live With? spouse Services at Home: None Primary Language: Bahamian ETOH Use: denies use Illicit Drug Use: denies illicit drug use Living Will? yes Power of Community Health Navigator/HCP? yes Name of POA/HCP: Halley Hassan Functional Ability ADLs Independent: dressing, eating, toileting, bathing. Ambulation: cane IADLs Independent: shopping, housework, finances, food prep, telephone, transportation , medication admin. Review of Systems Review of Systems Constitutional: Denies: weakness. Cardiovascular: Denies: chest pain. Respiratory: Denies: no symptoms, cough. Genitourinary: Denies: no symptoms. Musculoskeletal: Denies: no symptoms. Neurological/Psychological: Reports: confusion, numbness. Denies: ataxia, depressed, headache, paresthesia, tremors. Exam & Diagnostic Data Last 24 Hrs of Vital Signs/I&O Vital Signs Date Time Temp Pulse Resp B/P B/P Pulse O2 O2 Flow FiO2 Mean Ox Delivery Rate 03/11 1559 97.8 56 18 154/82 98 Room Air 03/11 1256 61 18 162/70 99 Room Air 03/11 1037 96.6 63 20 147/67 99 Room Air Intake & Output 03/11 1600 03/11 0800 03/11 0000 Intake Total Output Total Balance Patient 140 lb Weight Weight Reported by Patient Measurement Method Physical Exam General Appearance Alert, Oriented X3, Cooperative, No Acute Distress Skin No Rashes, No Breakdown, No Significant Lesion Cardiovascular Regular Rate, Normal S1, Normal S2 Lungs Clear to Auscultation, Normal Air Movement Abdomen Normal Bowel Sounds, Soft, No Tenderness, No Hepatospenomegaly Neurological Normal Speech, Strength at 5/5 X4 Ext, Sensation Intact, Cranial Nerves 3-12 NL, Strength 4/5 in upper and lower extremities bilaterally Reflexes hypoactive Negative babinski sign Extremities No Clubbing, No Cyanosis, No Edema Vascular Normal Pulses, Pulses Symmetrical Last 24 Hrs of Labs/Rasta: Laboratory Tests 03/11/18 1410: Urine Color YEL, Urine Clarity CLEAR, Urine pH 7.0, Ur Specific [place] 1.020, Urine Protein TRACE H, Urine Ketones NEG, Urine Nitrite POS H, Urine Bilirubin NEG, Urine Urobilinogen 0.2, Ur Leukocyte Esterase NEG, Ur Microscopic SEDIMENT EXAMINED, Urine RBC RARE, Ur Epithelial Cells RARE, Urine Hemoglobin NEG, Urine Glucose NEG 03/11/18 1035: Anion Gap 11, Estimated GFR > 60, BUN/Creatinine Ratio 22.5, Glucose 141 H, Hemoglobin A1c 6.1 H, Calcium 9.0, Total Bilirubin 0.4, AST 25, ALT 31, Alkaline Phosphatase 97, Troponin I < 0.01, Total Protein 6.3, Albumin 3.5, Globulin 2.8, Albumin/Globulin Ratio 1.3, Triglycerides Pending, Cholesterol Pending, LDL Cholesterol, Calc Pending, HDL Cholesterol Pending, Cholesterol/HDL Ratio Pending, PT 13.3 H, INR 1.22 H, APTT 29, CBC w Diff NO MAN DIFF REQ, RBC 3.29 L, MCV 96.3 H, MCH 32.5 H, MCHC 33.7, RDW 15.0 H, MPV 7.9, Gran % 49.8, Lymphocytes % 31.8, Monocytes % 8.3, Eosinophils % 9.5 H, Basophils % 0.6, Absolute Granulocytes 2.7, Absolute Lymphocytes 1.7, Absolute Monocytes 0.5, Absolute Eosinophils 0.5, Absolute Basophils 0 Diagnostic Data EKG Results NSR, LVH, Nonspecific ST and T wave changes Other Results CT: IMPRESSION: No acute intracranial pathology. Moderate to severe atrophy and small vessel ischemic disease. Assessment/Plan Assessment: A/P: Mr. González Hassan is an 88 year old male with past medical history of severe aortic stenosis, diabetes mellitus, hyperetnsion,s eizures, arthritis, hyperlipidemia, prior history of CVA, cerebral hemorrhage in May 2015 brought to ED for evaluation of left sided numbness lasting 20 minutes. Last admitted in October 2016 for dysarthria. ECHO: 80% CT scan head: No acute intracranial pathology. Moderate to severe atrophy and small vessel ischemic disease. Dopplers October: Plaque is present in the internal carotid arteries but velocity measurements are normal and there is no evidence to suggest a hemodynamically significant stenosis of greater than 50% diameter reduction. Problem List: 1. TIA 2. Severe Aortic Stenosis 3. Hypertension 4. Diabetes 5. Hyperlipidemia TRANSIENT ISCHEMIC ATTACK * Admit for observation in the telemetry for 24 hours given extensive history of recurrent TIA, * Vital signs on each shift; Neuro Checks q4 hours * Fall precautions; PT/OT * Speech and Swallow Evaluation * Carotid US * serial troponins/EKG * HbA1C and lipid panel * ECHO if not outpatient; given severe arotic stenosis * Start ASA 81 daily * Continue Plavix 75; Continue Lipitor 80 * Follow up with Dr. Jay (Cardiology) * Follow up neurology recommendations Severe Aortic Stenosis * Previous ECHO from 2017 demonstrating severe aortic stenosis. * Dr. Jay digital assistant. Repeat ECHO. Hypertension * Lisinopril 20mg * Hold labetalol given TIA to maintain permissive HTN Seizures * Continue with Keppra 500 BID Diabetes Mellitus * Accu-Checks; insulin sliding scale; Lantus 35 Hyperlipidemia * F/u Lipid panel; comntinue lipitor daily Code Status: DNR/DNI DVT PPx: Heparin SC Diet: Regular; passed bedside Pain pathway ordered As Ranked By This Provider Problem List: 1. Aortic stenosis 2. Transient ischemic attack Core Measures/Misc (05/17) Acute Coronary Syndrome ACS Diagnosis: No Congestive Heart Failure Congestive Heart Failure Diagnosis No Cerebrovascular Accident CVA/TIA Diagnosis: Yes NIH Stroke Scale: Total 0 Date Last Known Well: 03/11/18 Time Last Known Well: 1000 Symptom Start Date: 03/11/18 Symptom Start Time: 1000 tPA Risk/Benefit discussion I have discussed the risks, benefits, and alternatives of Alteplase treatment including: - If given promptly, can resolve or have major improvement in stroke symptoms. - Bleeding (hemorrhage) is the most common risk that can occur. - Bleeding may occur into the brain and cause~half-way serious disability~ including - this is rare, affecting about 1% of patients. - Alternative treatments with proven benefit for patients with stroke include aspirin and care in a specialized unit where staff members pay careful attention to a variety of basic aspects of care. tPA given? No Reason tPA not ordered Medical Contraindication Swallow Evaluation Pass Current/Past Hx AFib/AFlutter No No Antithrombotic d/t Medical Contraindication No Anticoagulant d/t Medical Contraindication No Statin d/t Medical Contraindication VTE (View Protocol) VTE Risk Factors Age>40 No Mechanical VTE Prophylaxis d/t N/A MechProphylax Ordered No VTE Pharm Prophylaxis d/t NA PharmProphylax ordered Sepsis (View protocol) Sepsis Present: No If YES complete Sepsis Event Note If YES complete Sepsis Event Note Pablito Mackenzie 03/11/18 1522: General Information and HPI Allergies/Medications Home Med list Aspirin (Ecotrin*) 81 MG TABLET.DR 1 TAB PO DAILY HEART/BLOOD (Reported) Atorvastatin Calcium 80 MG TABLET 1 TAB PO 1700 TIA Clopidogrel Bisulfate (Plavix) 75 MG TABLET 1 MG PO DAILY TIA Insulin Glargine,Hum.rec.anlog (Lantus Solostar) 100 UNIT/ML (3 ML) INSULN.PEN 35 UNIT SC QPM DIABETES (Reported) Labetalol HCl 300 MG TABLET 1 TAB PO BID BP (Reported) Levetiracetam 500 MG TABLET 1 TAB PO BID SEIZURES (Reported) Lisinopril 20 MG TABLET 1 TAB PO DAILY HEART (Reported) Metformin HCl 500 MG TABLET 1 TAB PO DAILY DIABETES (Reported) Core Measures/Misc (05/17) Sepsis (View protocol) If YES complete Sepsis Event Note If YES complete Sepsis Event Note Attending MD Review Statement Attending Statement Attending MD Statement: examined this patient, discuss w/resident/PA/SOFT METALS ENGRAVER HAND, agreed w/resident/PA/SOFT METALS ENGRAVER HAND, discussed with family, reviewed EMR data (avail), discussed with case mgmt Attending Assessment/Plan: 88 yr old male with pmf of CVA/TIA in past, hemorrhagic infarct in past who presented with left side numbness. Pt was closing the window this morning when he felt lightheaded and then he sort of eased himself into the couch next to the window. He alerted his who then called 911 and pt was brought to the Er. pt had a CT scan which showed no acute infarct . Pt on exam has a systolic ejection murmur consistent with his severe aortic stenosis. Pts said he had a recent echo in Dr Lowery office about 6 months ago and is due for another one in about a month. TIA- his symptoms have resolved and lasted only about 15 minutes. given his history of severe , this could be related to cerebral hypoperfusion secondary to as he was standing and had both his hands up to pull the window down to close it. Will repeat echo and will get cardiology consult .Neuro has been consulted. will cont with his current antiplatelet therapy. Pt is being placed in observation status due to TIA. Simone Bone 03/11/18 1621: Core Measures/Misc (05/17) Sepsis (View protocol) If YES complete Sepsis Event Note If YES complete Sepsis Event Note Resident Review Statement Other Findings: This is a 88-year-old male with past medical history significant for severe aortic stenosis, diabetes mellitus, hypertension, seizures, arthritis, hyperlipidemia, prior history of CVA, cerebral hemorrhage about 3 years ago was brought in by ambulance to the emergency room for evaluation of left-sided numbness. Patient reports that around 10 AM he suddenly developed numbness of left entire body face, arm, leg. He was able to speak clearly, no weakness, no sensory deficits. He denied any headache or vision disturbances, gait disturbances. Symptoms cleared within 20 minutes. He was brought to the emergency room for further evaluation. Patient has history of recurrent TIA - July 2014, January 2015, hemorrhagic infarct May 2015 while on Aggrenox, after which he was kept off from antiplatelet therapy with resultant TIA in July 2015, January 2016. Last admission to [facility] was in October 2016 for dysarthria. Patient has history of aortic stenosis, EF 80% follows up with Dr. Jay for follow-up echos. Review of systems completely negative. --------- Vitals afebrile, heart rate 60, respiratory rate 18, blood pressure 162/70, saturating at 99 on room air On exam-HEENT within normal limit, no JVD, S1-S2 normal, systolic ejection murmur, bilateral breath sounds normal, abdomen soft nontender nondistended, motor exam normal limit, no sensory deficits, cerebellar exam is normal limits. Labs CBC, BP within normal limits LFT normal Troponin 0 0.[address] no acute intracranial abnormality found EKG sinus rhythm, rate 67, T-wave inversion V2, no ST-T wave changes 1. Transient ischemic attack/left sensory syndrome Patient presented with transient numbness involving left face, arm, leg lasted for 20 minutes. He denied any weakness, sensory deficits, gait changes, vision changes. Reports no more numbness. Symptoms resolved in 20 minutes. CAT scan head was within normal limits. However given his prior extensive history of recurrent TIA, strokes - will observe him in telemetry for 24 hours. 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 * Serial troponin and EKG * Neurochecks every 4 hours * Fall precautions * PT OT * Speech and swallow evaluation * Echocardiogram given his severe * Ultrasound Doppler neck * HbA1c and lipid panel * Follow neuro recommendations * Start aspirin 81 daily * Continue Plavix 75 daily * Continue Lipitor 80 daily Diabetes mellitus Accu-Cheks Insulin sliding scale Lantus 35 units at bedtime Hypertension Lisinopril 20 daily Please hold labetalol given his TIA to maintain permissive hypertension Seizures Continue Keppra 500 twice daily Hyperlipidemia Continue Lipitor 80 daily Severe aortic stenosis Echocardiogram in 2017 showed severe aortic stenosis. He has been following up with Dr. Jay for periodic echoes. Will get cardiology consult and repeat echocardiogram DVT prophylaxis subcu heparin Regular diet passed bedside swallow DNR/DNI Pain pathway ordered
--- NOTE | 2018-03-11 15:48 | Cons- Neurology ---
General Information and HPI Consulting Request Date of Consult: 03/11/18 Requested By: Pablito Mackenzie MD Reason for Consult: TIA, left side numbness Source of Information: patient, family, old records Exam Limitations: no limitations History of Present Illness: 88-year-old man with a prior history of stroke, cerebral hemorrhage about 3 years ago with a secondary seizure has been well on Plavix, atorvastatin and Keppra 500 mg twice daily. Today around 10 AM he suddenly developed numbness of the entire left body, face arm and leg. He was able to speak clearly according to his , reported no headache or visual disturbance at the time and does not recall the left side being significantly weak. Symptoms cleared in about 15-20 minutes. Currently he has no complaints Allergies/Medications Allergies: Coded Allergies: Iodinated Contrast- Oral and IV Dye (IODINATED CONTRAST MEDIA - IV DYE) (SARA, RAVEN 05/11/16) Home Med List: Aspirin (Ecotrin*) 81 MG TABLET.DR 1 TAB PO DAILY HEART/BLOOD (Reported) Atorvastatin Calcium 80 MG TABLET 1 TAB PO 1700 TIA Clopidogrel Bisulfate (Plavix) 75 MG TABLET 1 MG PO DAILY TIA Insulin Glargine,Hum.rec.anlog (Lantus Solostar) 100 UNIT/ML (3 ML) INSULN.PEN 35 UNIT SC QPM DIABETES (Reported) Labetalol HCl 300 MG TABLET 1 TAB PO BID BP (Reported) Levetiracetam 500 MG TABLET 1 TAB PO BID SEIZURES (Reported) Lisinopril 20 MG TABLET 1 TAB PO DAILY HEART (Reported) Metformin HCl 500 MG TABLET 1 TAB PO DAILY DIABETES (Reported) Current Medications: Current Medications Sig/Maikol Start time Last Medication Dose Route Stop Time Status Admin Acetaminophen 650 MG Q6P PRN 03/11 1415 AC PO Aspirin 0 .STK-MED ONE 03/11 1415 DC PO Aspirin 325 MG ONCE ONE 03/11 1330 DC 03/11 PO 03/11 1331 1418 Aspirin Buffered 81 MG DAILY 03/12 0900 AC PO Atorvastatin Calcium 80 MG 1700 03/11 1700 AC PO Clopidogrel Bisulfate 75 MG DAILY 03/12 0900 AC PO Heparin Sodium 5,000 UNIT Q8 03/11 2200 AC (Porcine) SC Insulin Aspart 0 TIDAC 03/11 1430 AC SC Insulin Detemir 35 UNITS QPM 03/11 2100 AC SC Levetiracetam 500 MG BID 03/11 2100 AC PO Lisinopril 20 MG DAILY 03/12 0900 AC PO Review of Systems Review of Systems: On the complete medical ROS he denied chest pain or palpitations, lightheadedness or alteration of consciousness, dyspnea. He has no GI problems he does report some visual blurring dating from the stroke a few years ago and also potentially attributable to glaucoma surgery all other systems negative or noncontributory Past History Travel History Traveled to [place] past 21 day No Medical History Neurological: CVA, seizure, TIA EENT: glaucoma Cardiovascular: aortic stenosis, hypertension, hyperlipidemia, AORTIC STENOSIS Respiratory: NONE Gastrointestinal: HERNIA Hepatic: NONE Renal: KIDNEY STONES Musculoskeletal: ARTHRITIS IN KNEES Psychiatric: NONE Endocrine: diabetes Blood Disorders: NONE Cancer(s): NONE FAITH HEALER/Reproductive: NONE Surgical History Surgical History: hernia repair Family History Relations & Conditions If Any: FATHER FH: cancer FH: heart disease Psychosocial History Who Do You Live With? spouse Services at Home: None Primary Language: Amharic ETOH Use: denies use Illicit Drug Use: denies illicit drug use Living Will? yes Power of Pearl Cutter/HCP? yes Name of POA/HCP: Halley Garay Functional Ability ADLs Independent: dressing, eating, toileting, bathing. Ambulation: cane IADLs Independent: shopping, housework, finances, food prep, telephone, transportation , medication admin. Exam & Diagnostic Data Vital Signs and I&O Vital Signs Date Time Temp Pulse Resp B/P B/P Pulse O2 O2 Flow FiO2 Mean Ox Delivery Rate 03/11 1256 61 18 162/70 99 Room Air 03/11 1037 96.6 63 20 147/67 99 Room Air Intake & Output 03/11 1600 03/11 0800 03/11 0000 Intake Total Output Total Balance Patient 140 lb Weight Weight Reported by Patient Measurement Method Physical Exam: CT scan head: No acute intracranial pathology. Moderate to severe atrophy and small vessel ischemic disease. Last 48 Hours of Lab Results: Laboratory Tests 03/11 03/11 1410 1035 Chemistry Sodium (137 - 145 mmol/L) 143 Potassium (3.5 - 5.1 mmol/L) 4.2 Chloride (98 - 107 mmol/L) 103 Carbon Dioxide (22 - 30 mmol/L) 29 Anion Gap (5 - 16) 11 BUN (9 - 20 mg/dL) 18 Creatinine (0.7 - 1.2 mg/dL) 0.8 Estimated GFR (>60 ml/min) > 60 BUN/Creatinine Ratio (7 - 25 %) 22.5 Glucose (65 - 99 mg/dL) 141 H Hemoglobin A1c (4.2 - 5.8 %) 6.1 H Calcium (8.4 - 10.2 mg/dL) 9.0 Total Bilirubin (0.2 - 1.3 mg/dL) 0.4 AST (17 - 59 U/L) 25 ALT (21 - 72 U/L) 31 Alkaline Phosphatase (< 127 U/L) 97 Troponin I (<0.11 ng/ml) < 0.01 Total Protein (6.3 - 8.2 g/dL) 6.3 Albumin (3.5 - 5.0 g/dL) 3.5 Globulin (1.9 - 4.2 gm/dL) 2.8 Albumin/Globulin Ratio (1.1 - 2.2 %) 1.3 Triglycerides (<150 mg/dL) Pending Cholesterol (< 200 MG/DL) Pending LDL Cholesterol, Calc (65 - 129 mg/dL) Pending HDL Cholesterol (40 - 60 mg/dL) Pending Cholesterol/HDL Ratio (0.00 - 4.88 %) Pending Coagulation PT (9.4 - 12.5 SEC) 13.3 H INR (0.90 - 1.17) 1.22 H APTT (25 - 37 SEC) 29 Hematology CBC w Diff NO MAN DIFF REQ WBC (4.8 - 10.8 /CUMM) 5.4 RBC (4.70 - 6.10 /CUMM) 3.29 L Hgb (14.0 - 18.0 G/DL) 10.7 L Hct (42 - 52 %) 31.7 L MCV (80.0 - 94.0 FL) 96.3 H MCH (27.0 - 31.0 PG) 32.5 H MCHC (33.0 - 37.0 G/DL) 33.7 RDW (11.5 - 14.5 %) 15.0 H Plt Count (130 - 400 /CUMM) 174 MPV (7.4 - 10.4 FL) 7.9 Gran % (42.2 - 75.2 %) 49.8 Lymphocytes % (20.5 - 51.1 %) 31.8 Monocytes % (1.7 - 9.3 %) 8.3 Eosinophils % (0 - 5 %) 9.5 H Basophils % (0.0 - 2.0 %) 0.6 Absolute Granulocytes (1.4 - 6.5 /CUMM) 2.7 Absolute Lymphocytes (1.2 - 3.4 /CUMM) 1.7 Absolute Monocytes (0.10 - 0.60 /CUMM) 0.5 Absolute Eosinophils (0.0 - 0.7 /CUMM) 0.5 Absolute Basophils (0.0 - 0.2 /CUMM) 0 Urines Urine Color (YEL,AMB,STR) YEL Urine Clarity (CLEAR) CLEAR Urine pH (5.0 - 8.0) 7.0 Ur Specific [place] (1.001 - 1.035) 1.020 Urine Protein (NEG,<30 MG/DL) TRACE H Urine Ketones (NEG) NEG Urine Nitrite (NEG) POS H Urine Bilirubin (NEG) NEG Urine Urobilinogen (0.1 - 1.0 EU/dl) 0.2 Ur Leukocyte Esterase (NEG) NEG Ur Microscopic SEDIMENT EXAMINED Urine RBC (0 - 5 /HPF) RARE Ur Epithelial Cells (NONE,FEW) RARE Urine Hemoglobin (NEG) NEG Urine Glucose (N MG/DL) NEG Imaging/Other Studies: Dopplers October: Plaque is present in the internal carotid arteries but velocity measurements are normal and there is no evidence to suggest a hemodynamically significant stenosis of greater than 50% diameter reduction. Assessment/Plan Assessment: Transient ischemic attack, left sensory syndrome, possibly small vessel subcortical disease, cannot rule out small embolus in the sensory territory of the right middle cerebral artery Recommendations: Admit for observation 24 hours Continue Plavix and atorvastatin Add aspirin 81 mg EC daily Check carotid Dopplers Telemetry Echocardiogram, it can be arranged within a timeframe of the observation, Otherwise would obtain as outpatient Consult Acknowledgment - Thank you for your consult request.
[2018-03-11 16:40] VITALS: BP 146/62
--- NOTE | 2018-03-11 19:45 | ULTRASOUND REPORT ---
US DUPLEX CAROTID AND VERTEBRAL CLINICAL INFORMATION: Left-sided numbness. COMPARISON: MRA neck October 22, 2016. TECHNIQUE: Real-time ultrasound and Doppler techniques (integrating B-mode 2D vascular images, Doppler spectral analysis and color flow Doppler imaging) were utilized to interrogate the extracranial carotid and vertebral arteries bilaterally. The degree of stenosis determined by criteria similar to NASCET. FINDINGS: Right common carotid artery peak systolic velocity is 101 cm/s with maximal end-diastolic velocity of 18.9 cm/s. Right internal carotid artery peak systolic velocity is 108 cm/s with maximal end-diastolic velocity of 26 cm/s. There is antegrade flow within the right vertebral artery. There is atherosclerotic disease within the right carotid bifurcation. Left common carotid artery peak systolic velocity is 110 cm/s with a maximal end-diastolic velocity of 13.8 cm/s. Left internal carotid artery peak systolic velocity is 128 cm/s with maximal end-diastolic velocity of 33 cm/s. There is antegrade flow within the left vertebral artery. There is atherosclerotic disease within the left carotid bifurcation. 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 - Less than 50% stenosis involving the right internal carotid artery.
[2018-03-11 22:09] VITALS: BP 130/70
[2018-03-12 05:54] LABS: ABSOLUTE BASOPHIL COUNT 0 /CUMM (0.0-0.2); ABSOLUTE EOSINOPHIL COUNT 0.6 /CUMM (0.0-0.7); ABSOLUTE GRANULOCYTE CT 3.6 /CUMM (1.4-6.5); ABSOLUTE MONOCYTE COUNT 0.7 /CUMM (0.10-0.60); BASOPHIL % 0.6 % (0.0-2.0); EOSINOPHIL % 8.1 % (0-5); GRANULOCYTE % 45.3 % (42.2-75.2); HEMATOCRIT 32.9 % (42-52); MEAN CORPUSCULAR HGB 32.7 PG (27.0-31.0); MEAN CORPUSCULAR HGB CONC 33.8 G/DL (33.0-37.0); MEAN CORPUSCULAR VOLUME 96.7 FL (80.0-94.0); MEAN PLATELET VOLUME 7.8 FL (7.4-10.4); PLATELET COUNT 199 /CUMM (130-400); RED BLOOD CELL CT 3.41 /CUMM (4.70-6.10); WHITE BLOOD CELL COUNT 7.9 /CUMM (4.8-10.8)
--- NOTE | 2018-03-12 07:00 | PN- Housestaff ---
Davis Chappell 03/12/18 0659: Subjective Follow-up For: TIA Subjective: Patient seen and examined at bedside this morning. He has been seen by PT/OT and shows significant improvement in strength. No overnight events. Patient had low blood sugars this morning with no symptoms but will continue to monitor. Patient to be seen by Dr. Jay. ECHO pending and extended observation. No chest pain, palpitations, shortness of breath or headaches overnight. Review of Systems Constitutional: Denies: see HPI. Objective Last 24 Hrs of Vital Signs/I&O Vital Signs Date Time Temp Pulse Resp B/P B/P Pulse O2 O2 Flow FiO2 Mean Ox Delivery Rate 03/12 1451 97.9 70 20 110/52 98 Room Air 03/12 0918 73 156/70 03/12 0705 97.7 64 18 156/70 94 Room Air 03/11 2209 98.0 62 20 130/70 95 03/11 1640 97.7 56 20 146/62 96 Room Air 03/11 1630 96 Room Air 03/11 1559 97.8 56 18 154/82 98 Room Air Intake & Output 03/12 1600 03/12 0800 03/12 0000 Intake Total 200 640 Output Total Balance 200 640 Intake, Oral 200 640 Number 1 2 Bowel Movements Patient 144 lb Weight Physical Exam General Appearance: Alert, Oriented X3, Cooperative, No Acute Distress HEENT: Atraumatic, PERRLA, EOMI Cardiovascular: Regular Rate, Normal S1, Normal S2 Abdomen: Normal Bowel Sounds, Soft, No Tenderness Neurological: Strength 4/5 in bilateral upper/lower extremities Reflexes hypoactive Sensation intact CN intact Extremities: No Clubbing, No Cyanosis, No Edema, Normal Pulses, No Tenderness/ Swelling Vascular: Normal Pulses, Pulses Symmetrical Assessment/Plan Assessment: A/P: Patient is a 88 year old male with past medical history of severe aortic stenosis, diabetes mellitus, hypertension, seizures, arthritis, hyperlipidemia and prior history of TIAs and CVA. Patient brought to ED for evaluation of left sided numbness from face to toes resolving in 20 minutes. No tpa out of window. Troponins and EKG negative on admission. Continue on extended observation for ECHO. TIA * ASA and Plavix * Carotid US: * f/u ECHO: SEVERE AORTIC STENOSIS * Cardiology on board; Dr. Regan * Possibility of TAVR given severe aortic stenosis and left sided carotid narrowing * follow up ECHO results HYPOGLYCEMIA * Patient hypoglycemic this morning with sugars at 43; was given crackers and changed levemir to BID dosing * will continue to monitor Accu-Checks * HbA1C: 6.1 Code Status: DNR/DNI DVTPPx: Heparin SC Diet: Regular Diet Problem List: 1. Hypoglycemia 2. Aortic stenosis 3. Transient ischemic attack Pain Ratin Pain Location: No pain at this time Pain Goal: Remain pain free Pain Plan: As per pain pathway Tomorrow's Labs & Rationales: CBC BEP DVT/Prophylaxis: mechanical, pharmacological Pablito Mackenzie 03/12/18 1226: Attending MD Review Statement Attending Statement Attending MD Statement: examined this patient, discuss w/resident/PA/FRESH FOODS CAKE DECORATOR, agreed w/resident/PA/FRESH FOODS CAKE DECORATOR, discussed with family, reviewed EMR data (avail), discussed with nursing, discussed with case mgmt Attending Assessment/Plan: TIA- in pt with recurrent TIA and stroke in past. Neuor consut appreciated. start asa and cont on plavix . carotid ultrasound reviewed. pt with severe also. will f/u on ehco results. Severe - will d/w cardio about the possibility of TAVR given his severe and left side carotid narrowing. d/w family the findings. f/u on repeat echo results. Hypoglycemia- this am. changed levemir to bid dosing. dw pt and pts at bedside the care plan.
[2018-03-12 07:05] VITALS: BP 156/70
--- NOTE | 2018-03-12 11:48 | Patient Discharge Instructions ---
Discharge Instructions General Discharge Information You were seen/treated for: Transient ischemic attack Severe aortic stenosis Special Instructions: Please follow-up with PCP in 1 week after discharge Please follow-up with printed circuit layout taper in 1 week after discharge to discuss about options for management of severe aortic stenosis Please follow-up with the neurologist in 1 week after discharge Diet Continue normal diet: Yes Activity Full Activity/No Limits: Yes Acute Coronary Syndrome Inclusion Criteria At DC or during hospital stay patient has or had the following: ACS DIAGNOSIS No Discharge Core Measures Meds if any: Prescribed or Continued at Discharge Meds if any: NOT Prescribed or Continued at Discharge Congestive Heart Failure Inclusion Criteria At DC or during hospital stay patient has or had the following: CHF DIAGNOSIS No Discharge Core Measures Meds if any: Prescribed or Continued at Discharge Meds if any: NOT Prescribed or Continued at Discharge Cerebrovascular accident Inclusion Criteria At DC or during hospital stay patient has or had the following: CVA/TIA Diagnosis Yes Discharge Core Measures Meds if any: Prescribed or Continued at Discharge Meds if any: NOT Prescribed or Continued at Discharge Venous thromboembolism Inclusion Criteria VTE Diagnosis No VTE Type NONE VTE Confirmed by (Test) NONE Discharge Core Measures - Per Current guidelines, there needs to be overlap - treatment for the first 5 days of Warfarin therapy. - If discharged on Warfarin prior to 5 days of - overlap therapy, the patient will need to be - assessed for post discharge needs including - *Post discharge parental anticoagulation - *Warfarin and/or parental anticoagulation education - *Follow up date to check INR post discharge At least 5 days overlap therapy as Inpatient No Meds if any: Prescribed or Continued at Discharge Note: Overlap Therapy is Warfarin and Anticoagulant Meds if any: NOT Prescribed or Continued at Discharge
--- NOTE | 2018-03-12 13:28 | Cons- Cardiology ---
General Information and HPI Consulting Request Date of Consult: 03/12/18 Requested By: Gudreep ROLON,Pablito Meza History of Present Illness: Mr. Garay is an 88 year old male with history of hypertension, dyslipidemia, diabetes mellitus and TIA. He was last admitted for a TIA. At that time, he was noted to have slurred speech with some weakness in his hand that resulted in him dropping items. Cardiac workup at the time disclosed evidence of moderate to severe aortic stenosis. He also had multiple episodes of lightheadedness and therefore his lisinoprilHCT was stopped. This patient was brought to the ER yesterday after noting a numbness in his left arm and face which lasted for about 20 minutes before resolving. He otherwise denies any lightheadedness or palpitations and is free of any chest pain or shortness of breath at his current level of activity. The last time the patient was admitted it was for difficulty speaking and right sided weakness. The differential diagnosis rested between a recurrent TIA and partial seizure and his Keppra dose had been increased with some significant fatigue. He has had a prior cerebral hemorrhage after which she has had mildly impaired speech and imbalance for which she uses a walker. Per his , [facility] his recurrent episodes of speech disturbance one more in keeping with seizure as opposed to recurrent TIA. He has had EEGs in the past; these results are currently unavailable for my review. The patient's deficit has largely resolved soon after arriving in the emergency department. CAT scan of the brain showed no acute abnormalities. There was evidence of cerebral atrophy and old lacunar infarcts. No large vessel territorial infarcts or hemorrhages are identified He denies chest discomfort, shortness of breath, lightheadedness or palpitations at his current level of activity. At baseline he walks slowly. Higher levels of activity will get him winded. It should be noted that this patient has severe aortic stenosis. It should be noted that this patient had a left eye procedure for glaucoma and has some visual deficit due to his eye not opening fully. He is s/p a left parietal lobe hemorrhage and was therefore taken off Aggrenox. At that time he was found to walk with an off-balanced gait and he had slurred speech. To review this patient's past history, after his previous TIA, a carotid ultrasound was obtained which showed a 50% to 79% decrease in diameter of the distal right internal carotid artery. 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 In addition, an echocardiogram was obtained which showed an overall normal EF of 65% with mild septal hypertrophy. There was also evidence of impaired LV relaxation. In terms of cardiac valves, the patient has trace MR, trace TR, and mild pulmonic regurgitation. More importantly, there is a severely thickened and sclerotic aortic valve with decreased leaflet excursion consistent with moderate to severe aortic stenosis accompanied by mild to moderate aortic regurgitation. Allergies/Medications Allergies: Coded Allergies: Iodinated Contrast- Oral and IV Dye (IODINATED CONTRAST MEDIA - IV DYE) (SARA, RAVEN 05/11/16) Home Med List: Aspirin (Ecotrin*) 81 MG TABLET.DR 1 TAB PO DAILY HEART/BLOOD (Reported) Atorvastatin Calcium 80 MG TABLET 1 TAB PO 1700 TIA Clopidogrel Bisulfate (Plavix) 75 MG TABLET 1 MG PO DAILY TIA Insulin Glargine,Hum.rec.anlog (Lantus Solostar) 100 UNIT/ML (3 ML) INSULN.PEN 35 UNIT SC QPM DIABETES (Reported) Labetalol HCl 300 MG TABLET 1 TAB PO BID BP (Reported) Levetiracetam 500 MG TABLET 1 TAB PO BID SEIZURES (Reported) Lisinopril 20 MG TABLET 1 TAB PO DAILY HEART (Reported) Metformin HCl 500 MG TABLET 1 TAB PO DAILY DIABETES (Reported) Review of Systems Review of Systems: A twelve point review of systems is unremarkable. Past History Travel History Traveled to [place] past 21 day No Medical History Blood Transfusion Hx: No Neurological: CVA, seizure, TIA EENT: glaucoma Cardiovascular: aortic stenosis, hypertension, hyperlipidemia, AORTIC STENOSIS Respiratory: NONE Gastrointestinal: HERNIA Hepatic: NONE Renal: KIDNEY STONES Musculoskeletal: ARTHRITIS IN KNEES Psychiatric: NONE Endocrine: diabetes Blood Disorders: NONE Cancer(s): NONE SALOONKEEPER/Reproductive: NONE Surgical History Surgical History: hernia repair Family History Relations & Conditions If Any: FATHER FH: cancer FH: heart disease Psychosocial History Who Do You Live With? spouse Services at Home: None Primary Language: Grenadian Smoking Status: Never Smoked ETOH Use: denies use Illicit Drug Use: denies illicit drug use Living Will? yes Power of Assistant In Nursing/HCP? yes Name of POA/HCP: Halley Garay Functional Ability ADLs Independent: dressing, eating, toileting, bathing. Ambulation: cane IADLs Independent: shopping, housework, finances, food prep, telephone, transportation , medication admin. Exam & Diagnostic Data Vital Signs and I&O Vital Signs Date Time Temp Pulse Resp B/P B/P Pulse O2 O2 Flow FiO2 Mean Ox Delivery Rate 03/12 0918 73 156/70 03/12 0705 97.7 64 18 156/70 94 Room Air 03/11 2209 98.0 62 20 130/70 95 03/11 1640 97.7 56 20 146/62 96 Room Air 03/11 1630 96 Room Air 03/11 1559 97.8 56 18 154/82 98 Room Air Intake & Output 03/12 1600 03/12 0800 03/12 0000 03/11 1600 03/11 0800 03/11 0000 Intake Total 200 640 Output Total Balance 200 640 Intake, Oral 200 640 Number 1 2 Bowel Movements Patient 144 lb 140 lb Weight Weight Reported by Patient Measurement Method Physical Exam: General: WD/WN male in NAD; alert and oriented x 3 HEENT: NC/AT, PERRL, EOMI Neck: no JVD, no carotid bruit Heart: RRR with 2/6 systolic murmur Lungs: clear bilaterally Abdomen: soft, NT, +ve bowel sounds Extremiteis: no edema Assessment/Plan Assessment/Plan * This patient has recurrent TIA's. I suspect there is significant atheromatous disease in his aorta and carotids although intracardiac thrombus cannot be excluded. Although the patient has aortic stenosis, I believe that this is a separate issue. I would not be inclined to have an 88 year old in poor general carlos undergo an ARV or TAVR since I think he will be at increased risk for stroke. The only exception would be if his aortic stenosis is in the critical range. Obtain and echocardiogram to assess for intracardiac thrombus and his degree of aortic stenosis. Consult Acknowledgment - Thank you for your consult request.
[2018-03-12 14:51] VITALS: BP 110/52
[2018-03-12 23:07] VITALS: BP 140/64
[2018-03-13 07:05] VITALS: BP 140/60
[2018-03-13 08:29] LABS: ABSOLUTE BASOPHIL COUNT 0 /CUMM (0.0-0.2); ABSOLUTE EOSINOPHIL COUNT 0.6 /CUMM (0.0-0.7); ABSOLUTE GRANULOCYTE CT 3.1 /CUMM (1.4-6.5); ABSOLUTE LYMPH COUNT 2.5 /CUMM (1.2-3.4); ABSOLUTE MONOCYTE COUNT 0.6 /CUMM (0.10-0.60); BASOPHIL % 0.6 % (0.0-2.0); EOSINOPHIL % 8.9 % (0-5); GRANULOCYTE % 44.9 % (42.2-75.2); HEMATOCRIT 30.6 % (42-52); MEAN PLATELET VOLUME 8.8 FL (7.4-10.4); PLATELET COUNT 173 /CUMM (130-400); RBC DISTRIBUTION WIDTH 15.3 % (11.5-14.5); RED BLOOD CELL CT 3.16 /CUMM (4.70-6.10); WHITE BLOOD CELL COUNT 6.9 /CUMM (4.8-10.8)
[2018-03-13 08:53] VITALS: BP 140/60
--- NOTE | 2018-03-13 09:34 | ECHOCARDIOGRAM REPORT ---
GONZÁLEZ HASSAN Age: 88 : 1930 Gender: M Exam Date: 03/12/2018 11:16 Exam Location: 1 [address] Ht (in): 63 Wt (lb): 140 BSA: 1.69 BP: 156 / 70 Ordering Physician: Lanie Bone MD Referring Physician: Lanie Bone MD Technologist: Pelon Figueroa [facility] Room Number: 179-2 Indications: VALVULAR DISEASE Rhythm: Sinus Technical Quality: good FINDINGS Left Ventricle Normal left ventricular size, wall thickness and systolic function with no obvious regional wall motion abnormalities. Diastolic filling pattern is consistent with impaired LV relaxation. The ejection fraction is visually estimated at 60%. Right Ventricle The right ventricle is normal in size and function. Right Atrium The right atrium is normal in size. Left Atrium The left atrium is normal in size. The interatrial septum is intact. Mitral Valve The mitral valve is normal in structure and function. There is trace mitral regurgitation. Aortic Valve Severely thisckened and sclerotic aortic valve with severe stenosis. There is mild aortic regurgitation. Tricuspid Valve The tricuspid valve is normal in structure and function. There is trace tricuspid regurgitation. Pulmonary artery systolic pressure is normal. Pulmonic Valve Structurally normal pulmonic valve. There is mild pulmonic regurgitation. Pericardium Normal pericardium without effusion. No pleural effusion. Great Vessels Normal aortic root dimension. The aortic arch and great vessels are well seen and are normal. CONCLUSIONS 1. Normal EF of 60% with impaired LV relaxation. 2. Trace mitral regurgitation. 3. Trace tricuspid regurgitation. 4. Severe aortic stenosis with mild aortic insufficiency. 5. Mild pulmonic regurgitation. Kaushik Jay M.D. (Electronically Signed) Final Date: 13 March 2018 09:33 MEASUREMENTS (Male / Female) Normal Values 2D ECHO LV Diastolic Diameter PLAX 3.0 cm 4.2 - 5.9 / 3.9 - 5.3 cm LV Systolic Diameter PLAX 2.2 cm 2.1 - 4.0 cm LV Fractional Shortening PLAX 26.7 % 25 - 46 % LV Ejection Fraction 2D Teich 53.7 % IVS Diastolic Thickness 1.1 cm LVPW Diastolic Thickness 1.1 cm LV Relative Wall Thickness 0.7 RV Internal Dim ED PLAX 3.1 cm 1.9 - 3.8 cm LVOT Diameter 2.1 cm Aortic Root Diameter 3.3 cm LA Systolic Diameter LX 3.6 cm 3.0 - 4.0 / 2.7 - 3.8 cm LA Volume 38.0 cm 18 - 58 / 22 - 52 cm Ascending Aorta Diameter 3.4 cm DOPPLER AV Peak Velocity 455.0 cm/s AV Peak Gradient 82.8 mmHg AV Mean Velocity 335.0 cm/s AV Mean Gradient 51.0 mmHg AV Velocity Time Integral 134.0 cm AI Deceleration Edmonson 175.5 cm/s AI Peak Velocity 341.0 cm/s AI Pressure Half Time 581.5 ms AI Peak Gradient 46.5 mmHg LVOT Peak Velocity 96.3 cm/s LVOT Peak Gradient 3.7 mmHg LVOT Mean Velocity 67.1 cm/s LVOT Mean Gradient 2.0 mmHg LVOT Velocity Time Integral 32.3 cm LVOT Stroke Volume 111.9 cm AV Area Cont Eq vti 0.8 cm AV Area Cont Eq pk 0.7 cm MV Peak Velocity 150.0 cm/s MV Peak Gradient 9.0 mmHg MV Mean Velocity 74.1 cm/s MV Mean Gradient 3.0 mmHg Mitral E Point Velocity 81.4 cm/s Mitral A Point Velocity 128.0 cm/s Mitral E to A Ratio 0.6 MV PHT Velocity 93.6 cm/s MV Deceleration Edmonson 160.0 cm/s MV Pressure Half Time 175.5 ms MV Area PHT 1.3 cm MV Deceleration Time 496.0 ms TR Peak Velocity 272.0 cm/s TR Peak Gradient 29.6 mmHg Right Atrial Pressure 5.0 mmHg Pulmonary Artery Systolic Pressure 34.6 mmHg Right Ventricular Systolic Pressure 34.6 mmHg PV Peak Velocity 117.0 cm/s PV Peak Gradient 5.5 mmHg PV Mean Velocity 85.7 cm/s PV Mean Gradient 3.0 mmHg PV Velocity Time Integral 27.9 cm LV E' Lateral Velocity 7.9 cm/s Mitral E to LV E' Lateral Ratio 10.3 LV E' Septal Velocity 5.8 cm/s Mitral E to LV E' Septal Ratio 14.2
--- NOTE | 2018-03-13 11:48 | PN-Observation ---
Priya Mckeon 03/13/18 1147: Observation Note Observation Note _ I have personally examined GONZÁLEZ HASSAN. him disposition is uncertain at this time. Before a determination can be made, he requires continued observation for the following reasons []. Assessment/Plan Medical Assessment: Patient is a 88 year old male with past medical history of severe aortic stenosis, diabetes mellitus, hypertension, seizures, arthritis, hyperlipidemia and prior history of TIAs and CVA. Patient brought to ED for evaluation of left sided numbness from face to toes resolving in 20 minutes. No tpa out of window. Vitals stable overnight. Plan: * Plan is to discharge to home today. * Possibility of TAVR given severe aortic stenosis and left sided carotid narrowing, as an outpatient. We will follow with cardiology as an outpatient * Continue Accu-Cheks * At the moment, the patient appears to be doing well from a cardiac standpoint * echocardiogram: shows severe aortic stenosis. The aortic valve area has not significant change from the prior echocardiogram, however, the peak and mean gradients have increased since the prior study * Out of bed as tolerated * Code Status: DNR/DNI * DVTPPx: Heparin SC * Diet: Regular Diet Problem List: 1. Hypoglycemia 2. Transient ischemic attack 3. Aortic stenosis Subjective Follow-up For: TIA Complaints: no complaints Tele-Events Since Last Visit: Normal sinus rhythm heart rate 70 Sinus bradycardia heart rate 59 Subjective: No complaints/no acute events overnight. Review of Systems Constitutional: Reports: see HPI. Objective Last 24 Hrs of Vital Signs/I&O Vital Signs Date Time Temp Pulse Resp B/P B/P Pulse O2 O2 Flow FiO2 Mean Ox Delivery Rate 03/13 0853 77 140/60 03/13 0800 98 Room Air 03/13 0705 97.9 72 18 140/60 98 Room Air Intake & Output 03/13 1600 03/13 0800 03/13 0000 Intake Total 560 120 150 Output Total Balance 560 120 150 Intake, Oral 560 120 150 Physical Exam General Appearance: Alert, Oriented X3, Cooperative, No Acute Distress Skin Temp/Moisture Exam: Cool/Dry HEENT: Atraumatic Neck: Supple Cardiovascular: Regular Rate, Normal S1, Normal S2, No Murmurs Lungs: Clear to Auscultation, Normal Air Movement Abdomen: Normal Bowel Sounds, Soft, No Tenderness Neurological: Normal Speech (Strength 4/5 in all 4 limbs ) Extremities: No Clubbing, No Cyanosis, No Edema Pablito Mackenzie 03/13/18 1640: Attending MD Review Statement Attending Statement Attending MD Statement: examined this patient, discuss w/resident/PA/OIL ANALYST, agreed w/resident/PA/OIL ANALYST, discussed with family, reviewed EMR data (avail), discussed w/ nursing, discussed w/case mgmt Attending Assessment/Plan: pt being dced home in stable condition. d/w pt the cardiology recommendations. His echo results were reviewed with cardiology and they recommend following up with dr pelletier in his clinic for discussion about his AStenosis. see dc summary for more details.
--- NOTE | 2018-03-13 14:14 | PN- Cardiology ---
Subjective Subjective: Clinically, the patient appears stable. No new issues or symptoms. Anxious to go home. Objective Vital Signs and I&Os Vital Signs Date Time Temp Pulse Resp B/P B/P Pulse O2 O2 Flow FiO2 Mean Ox Delivery Rate 03/13 0853 77 140/60 03/13 0800 98 Room Air 03/13 0705 97.9 72 18 140/60 98 Room Air 03/12 2307 98.1 63 18 140/64 98 03/12 1451 97.9 70 20 110/52 98 Room Air Intake & Output 03/13 1600 03/13 0800 03/13 0000 03/12 1600 03/12 0000 Intake Total 120 150 360 200 640 Output Total Balance 120 150 360 200 640 Intake, IV 10 Intake, Oral 120 150 350 200 640 Number 1 2 Bowel Movements Patient 144 lb Weight Physical Exam: General Appearance: well developed/nourished, elderly male, alert, awake, oriented Head: normal HEENT: Normal Neck: supple, JVP normal, carotid upstrokes delayed bilaterally with bilateral transmitted murmur/bruit Respiratory: chest non-tender, clear to auscultation and percussion bilaterally Cardiovascular: regular rate/rhythm, normal S1, S2, 2-3/6 systolic murmur Abdomen: normal bowel sounds, soft, non-tender Extremities: normal inspection, no edema Vascular: Pulses are 2+ and equal bilaterally Neurologic: Grossly normal/nonfocal Current Medications: Current Medications Sig/Maikol Start time Last Medication Dose Route Stop Time Status Admin Acetaminophen 650 MG Q6P PRN 03/11 1415 AC PO Aspirin Buffered 81 MG DAILY 03/12 0900 AC 03/13 PO 0853 Atorvastatin Calcium 80 MG 1700 03/11 1700 AC 03/12 PO 1845 Clopidogrel Bisulfate 75 MG DAILY 03/12 09 AC 03/13 PO 0853 Heparin Sodium 5,000 UNIT Q8 03/11 2200 AC 03/13 (Porcine) SC 0515 Insulin Aspart 0 TIDAC 03/11 1430 AC 03/13 SC 1331 Insulin Detemir 17 UNITS BID 03/12 2100 AC 03/13 SC 0853 Levetiracetam 500 MG BID 03/11 2100 AC 03/13 PO 0853 Lisinopril 20 MG DAILY 03/12 0900 AC 03/13 PO 0853 Results Last 48 Hrs of Labs/Mics: Laboratory Tests 03/13/18 0609: Anion Gap 9, Estimated GFR > 60, BUN/Creatinine Ratio 26.3 H, CBC w Diff NO MAN DIFF REQ, RBC 3.16 L, MCV 97.0 H, MCH 33.0 H, MCHC 34.0, RDW 15.3 H, MPV 8.8 , Gran % 44.9, Lymphocytes % 36.9, Monocytes % 8.7, Eosinophils % 8.9 H, Basophils % 0.6, Absolute Granulocytes 3.1, Absolute Lymphocytes 2.5, Absolute Monocytes 0.6, Absolute Eosinophils 0.6, Absolute Basophils 0 03/12/18 0536: Anion Gap 12, Estimated GFR > 60, BUN/Creatinine Ratio 25.0, Glucose 43 *L, CBC w Diff NO MAN DIFF REQ, RBC 3.41 L, MCV 96.7 H, MCH 32.7 H, MCHC 33.8, RDW 15.0 H, MPV 7.8, Gran % 45.3, Lymphocytes % 37.4, Monocytes % 8.6, Eosinophils % 8.1 H, Basophils % 0.6, Absolute Granulocytes 3.6, Absolute Lymphocytes 3.0, Absolute Monocytes 0.7 H, Absolute Eosinophils 0.6, Absolute Basophils 0 03/11/18 2200: Troponin I < 0.01 03/11/18 1555: Troponin I < 0.01 Assessment/Plan Assessment/Plan Assessment: 1. Recurrent TIAs 2. Severe aortic stenosis 3. Hypoglycemia 4. Macrocytic anemia 5. Bilateral carotid disease; 50-79% left internal carotid stenosis; less than 50% right internal carotid artery stenosis Recommendations: -At the moment, the patient appears to be doing well from a cardiac standpoint. -Out of bed as tolerated -Review of the patient's echocardiogram shows severe aortic stenosis. The aortic valve area has not significant change from the prior echocardiogram, however, the peak and mean gradients have increased since the prior study. -As per Dr. Jay's note, there is no current plan for intervention. In view of this fact, the patient remains stable, I believe he can be discharged for follow-up as an outpatient. Continue telemetry? No
== END 2018-03-13 15:50 ==
LOC: ERH 10:23 → ERHI 13:20 → 1NO 13:20 → ENRESERV 14:00 → ENTRNSPT 16:02 → EDTRNSPTSTS 16:13 → 1NO 16:22 → CMPTRNSPT 16:30 → 1NO 03-12 19:31 → ENPENDDIS 03-13 14:32 → ENTRNSPT 03-13 15:21 → EDTRNSPTSTS 03-13 15:40 → 1NO 03-13 15:50 → CMPTRNSPT 03-13 15:52
PROVIDERS: Emergency Medicine; Hospitalist; Physical Medicine & Rehabilitation Pain Medicine
DX: G45.9 Transient cerebral ischemic attack, unspecified (principal); D53.9 Nutritional anemia, unspecified; Z79.82 Long term (current) use of aspirin; E11.9 Type 2 diabetes mellitus without complications; Z79.84 Long term (current) use of oral hypoglycemic drugs; Z79.4 Long term (current) use of insulin; I10 Essential (primary) hypertension; Z86.73 Personal history of transient ischemic attack (TIA), and cerebral infarction without residual deficits; R56.9 Unspecified convulsions; I35.0 Nonrheumatic aortic (valve) stenosis; E78.5 Hyperlipidemia, unspecified; I65.23 Occlusion and stenosis of bilateral carotid arteries
CPT/HCPCS: 36592; 81001; 82436; 92610-GN; 93005; 93010; 93306; 96372; 97116-GP; 97161-GP; 97165-GO; G0378; G8978-GP; G8979-GP; G8980-GP; G8996-GN; G8997-GN; G8998-GN; J1644